=== PATIENT | female | born 1945 | race African-American/Black ===

== ENCOUNTER → 2017-07-16 | Outpatient (CLI) | payer MEDICARE ==
--- NOTE | 2017-07-16 17:41 | RADIOLOGY REPORT (SQ) ---
EXAM DESCRIPTION: CHEST PA/LATERAL COMPLETED DATE/TIME: 07/16/2017 5:27 pm REASON FOR STUDY: COUGH COMPARISON: None. EXAM PARAMETERS: NUMBER OF VIEWS: two views TECHNIQUE: Digital Frontal and Lateral radiographic views of the chest acquired. RADIATION DOSE: NA LIMITATIONS: none FINDINGS: LUNGS AND PLEURA: No opacities, masses or pneumothorax. No pleural effusion. MEDIASTINUM AND HILAR STRUCTURES: No masses or contour abnormalities. HEART AND VASCULAR STRUCTURES: Cardiomegaly. There is no failure. BONES: No acute findings. HARDWARE: Pacemaker/defibrillator. OTHER: No other significant finding. IMPRESSION: Cardiomegaly without failure. TECHNICAL DOCUMENTATION: JOB ID: [id number] [employer]- All Rights Reserved
== END ==
LOC: OD 17:02
PROVIDERS: ATTEND Physician Assistant
DX: R05 Cough (principal); I51.7 Cardiomegaly
CPT/HCPCS: 71020

== ENCOUNTER 2017-08-07 08:50 | Emergency (ER) | payer MEDICARE, MEDICAID ==
--- NOTE | 2017-08-07 09:21 | ER Document Report ---
HPI - HPI Pain Level: 1 Vertical Provider Document - INFECTION CONTROL TRAVEL OUTSIDE OF THE [place] IN LAST 30 DAYS: No - RESPIRATORY O2 Sat by Pulse Oximetry: 97 Course - Vital Signs Vital signs: Temp Pulse Resp BP Pulse Ox 97.5 F 83 16 135/86 H 97 08/07/17 09:04 08/07/17 09:04 08/07/17 09:04 08/07/17 09:04 08/07/17 09:04
--- NOTE | 2017-08-07 09:23 | ER Document Report ---
ED ENT - General Chief Complaint: Nose Bleed Stated Complaint: NOSE BLEED Time Seen by Provider: 08/07/17 09:21 Mode of Arrival: Ambulatory Information source: Patient Notes: 72-year-old female history of stroke and VT had nosebleed for 5-7 hours last night. Her INR was elevated on Thursday and she has not taken daily warfarin 2.5 mg since. No bleeding at this time. No chest pain no abdominal pain. No shortness of breath. She is here with her daughter. Because they called Dr. Livingston's office this morning and they sent her to the emergency room over the phone. TRAVEL OUTSIDE OF THE [place] IN LAST 30 DAYS: No - Related Data Allergies/Adverse Reactions: No Known Allergies Allergy (Verified 08/07/17 08:51) Past Medical History - General Information source: Patient - Social History Smoking Status: Never Smoker Frequency of alcohol use: None Drug Abuse: None Lives with: Family Family History: Reviewed & Not Pertinent - Past Medical History Cardiac Medical History: Reports: Hx Congestive Heart Failure, Hx Heart Attack Neurological Medical History: Reports: Hx Cerebrovascular Accident Review of Systems - Review of Systems Constitutional: No symptoms reported EENT: See HPI Cardiovascular: No symptoms reported Respiratory: No symptoms reported Gastrointestinal: No symptoms reported Genitourinary: No symptoms reported Female Genitourinary: No symptoms reported Musculoskeletal: No symptoms reported Skin: No symptoms reported Hematologic/Lymphatic: No symptoms reported Neurological/Psychological: No symptoms reported Physical Exam - Vital signs Vitals: Temp Pulse Resp BP Pulse Ox 97.5 F 83 16 135/86 H 97 08/07/17 09:04 08/07/17 09:04 08/07/17 09:04 08/07/17 09:04 08/07/17 09:04 Interpretation: Normal - General General appearance: Appears well, Alert In distress: None - HEENT Head: Normocephalic, Atraumatic Eyes: Normal Pupils: PERRL Nasal: Other - no bleeding source seen Pharynx: Other - no blood in posterior pharynx Neck: No: Lymphadenopathy - Respiratory Respiratory status: No respiratory distress Chest status: Nontender Breath sounds: Normal Chest palpation: Normal - Cardiovascular Rhythm: Regular Heart sounds: Normal auscultation Murmur: No - Abdominal Inspection: Normal Distension: No distension Bowel sounds: Normal Tenderness: Nontender Organomegaly: No organomegaly - Back Back: Normal, Nontender - Extremities General upper extremity: Normal inspection, Nontender, Normal color, Normal ROM , Normal temperature General lower extremity: Normal inspection, Nontender, Edema - pittng bilateral (chronic), Normal color, Normal ROM, Normal temperature, Normal weight bearing. No: Cameron's sign - Neurological Neuro grossly intact: Yes Cognition: Normal Orientation: AAOx4 [place] Coma Scale Eye Opening: Spontaneous [place] Coma Scale Verbal: Oriented Saud Coma Scale Motor: Obeys Commands Saud Coma Scale Total: 15 Speech: Normal Motor strength normal: LUE, RUE, LLE, RLE Sensory: Normal - Psychological Associated symptoms: Normal affect, Normal mood - Skin Skin Temperature: Warm Skin Moisture: Dry Skin Color: Normal Course - Re-evaluation Re-evalutation: 08/07/17 11:00 No nosebleed, INR is 4.5. 08/07/17 11:[address] Dejesus who says to hold the warfarin until Thursday she can see Dr. Livingston on Thursday which is the day he comes back. I will order an outpatient INR test to be done that morning. BUN is 24, creatinine is 1.67. I will give the lab work to the daughter so that Dr. Livingston can see it on Thursday. Her hemoglobin is 10.1, no lab results in our [facility] to compare to. platelets 183 08/07/17 11:06 - Vital Signs Vital signs: Temp Pulse Resp BP Pulse Ox 97.5 F 83 16 135/86 H 97 08/07/17 09:04 08/07/17 09:04 08/07/17 09:04 08/07/17 09:04 08/07/17 09:04 - Laboratory Result Diagrams: 08/07/17 10:15 08/07/17 10:15 Laboratory results interpreted by me: 08/07/17 08/07/17 08/07/17 10:15 10:15 10:15 Hgb 10.1 L Hct 31.6 L MCV 75 L MCH 23.8 L MCHC 31.9 L RDW 21.1 H Monocytes % 14.6 H PT 42.1 H APTT 56.7 H Carbon Dioxide 31 H BUN 24 H Creatinine 1.67 H Est GFR ( Amer) 37 L Est GFR (Non-Af Amer) 30 L Total Bilirubin 1.9 H Alkaline Phosphatase 170 H Discharge - Discharge Clinical Impression: elevated INR, resolved nosebleed, Renal insufficiency, Mild anemia Condition: Good Disposition: HOME, SELF-CARE Instructions: Nosebleed Instructions (OM) Additional Instructions: no more Warfarin until you see dr. livingston on thursday Call for appointment on Thursday with Dr. Livingston Order given for repeat INR on Thursday before you see Dr. Livingston Return to the emergency room if bleeding recurs or any concerns Forms: Follow-Up Laboratory Testing Referrals: ANDREI LIVINGSTON MD [Primary Care Provider] - 08/11/17 (call and schedule appt for thursday, get the labwork done first)
[2017-08-07 10:27] LABS: ABSOLUTE LYMPHOCYTES (AUTO) 1.3 10^3/uL (0.5-4.7); ABSOLUTE MONOCYTES (AUTO) 0.6 10^3/uL (0.1-1.4); ABSOLUTE NEUT (AUTO) 2.1 10^3/uL (1.7-8.2); BASOPHILS % (AUTO) 0.4 % (0-2); EOSINOPHILS % (AUTO) 0.4 % (0-6); HEMATOCRIT 31.6 % (36.0-47.0); HEMOGLOBIN 10.1 g/dL (12.0-15.5); HGB HCT DIFFERENCE -1.3; LYMPHOCYTES % (AUTO) 32.3 % (13-45); MEAN CORPUSCULAR HEMOGLOBIN 23.8 pg (27.0-33.4); MEAN CORPUSCULAR HGB CONC 31.9 g/dL (32.0-36.0); MEAN CORPUSCULAR VOLUME 75 fl (80-97); MONOCYTES % (AUTO) 14.6 % (3-13); RED BLOOD COUNT 4.24 10^6/uL (3.72-5.28); RED CELL DISTRIBUTION WIDTH 21.1 % (11.5-14.0); SEGMENTED NEUTROPHILS % (AUTO) 52.3 % (42-78)
[2017-08-07 10:33] LABS: PARTIAL THROMBOPLASTIN TIME 56.7 SEC (23.5-35.8); PROTHROMBIN TIME 42.1 SEC (11.4-15.4)
[2017-08-07 10:45] LABS: ALANINE AMINOTRANSFERASE 27 U/L (9-52); ALBUMIN 3.6 g/dL (3.5-5.0); ALKALINE PHOSPHATASE 170 U/L (38-126); ANION GAP 12 (5-19); ASPARTATE AMINO TRANSFERASE 25 U/L (14-36); BILIRUBIN,DIRECT 0.4 mg/dL (0.0-0.4); BILIRUBIN,TOTAL 1.9 mg/dL (0.2-1.3); BLOOD UREA NITROGEN 24 mg/dL (7-20); CALCIUM 9.3 mg/dL (8.4-10.2); CARBON DIOXIDE 31 mmol/L (22-30); CHLORIDE 98 mmol/L (98-107); CREATININE RESULT 1.67 mg/dL (0.52-1.25); GLUCOSE 78 mg/dL (75-110); POTASSIUM 3.6 mmol/L (3.6-5.0); SODIUM 141.3 mmol/L (137-145); TOTAL PROTEIN 6.6 g/dL (6.3-8.2)
[2017-08-07 11:29] VITALS: BP 136/96
== END 2017-08-07 11:29 | disposition home or self-care (01) ==
LOC: ER 08:50
DX: R04.0 Epistaxis (principal); N28.9 Disorder of kidney and ureter, unspecified; D64.9 Anemia, unspecified; I25.2 Old myocardial infarction
CPT/HCPCS: 36415; 80053; 85025; 85610; 85730; 99283

== ENCOUNTER → 2017-08-18 | Outpatient (CLI) | payer MEDICARE, MEDICAID ==
--- NOTE | 2017-08-18 16:54 | RADIOLOGY REPORT (SQ) ---
EXAM DESCRIPTION: U/S RETROPERITON (RENAL/AORTA) COMPLETED DATE/TIME: 08/18/2017 3:59 pm REASON FOR STUDY: ABNORMAL RENAL FX R94.4 ABNORMAL RESULTS OF KIDNEY FUNCTION STUDIES COMPARISON: None. TECHNIQUE: Dynamic and static grayscale images acquired of the kidneys and bladder and recorded on P ACS. Additional selected color Doppler and spectral images recorded. LIMITATIONS: None. FINDINGS: RIGHT KIDNEY: Normal size. Normal echogenicity. No solid or suspicious masses. No hydronep hrosis. No calcifications. LEFT KIDNEY: Normal size. Normal echogenicity. No solid or suspicious masses. No hydronephrosis. No calcifications. BLADDER: Poorly distended and not well visualized. No gross abnormality. OTHER FINDINGS: Gallstones. IMPRESSION: NORMAL RENAL AND BLADDER ULTRASOUND. INCIDENTAL FINDING OF GALLSTONES. TECHNICAL DOCUMENTATION: JOB ID: [id number] [employer]- All Rights Reserved
== END ==
LOC: RAD 14:39
PROVIDERS: ATTEND Physician Assistant
DX: R94.4 Abnormal results of kidney function studies (principal)
CPT/HCPCS: 76770

== ENCOUNTER → 2017-08-28 | Outpatient (CLI) | payer MEDICARE, MEDICAID ==
[2017-08-28 15:06] LABS: INTERNATIONAL RATION (INR) 1.65; PROTHROMBIN TIME 20.5 SEC (11.4-15.4)
[2017-08-28 15:07] LABS: PARTIAL THROMBOPLASTIN TIME 32.4 SEC (23.5-35.8)
== END ==
LOC: OD 13:40
PROVIDERS: ATTEND Family Medicine
DX: Z51.81 Encounter for therapeutic drug level monitoring (principal); Z79.01 Long term (current) use of anticoagulants
CPT/HCPCS: 36415; 85610; 85730

== ENCOUNTER → 2017-09-14 | Outpatient (CLI) | payer MEDICARE, MEDICAID ==
[2017-09-14 14:10] LABS: INTERNATIONAL RATION (INR) 2.63; PROTHROMBIN TIME 29.4 SEC (11.4-15.4)
[2017-09-14 14:11] LABS: PARTIAL THROMBOPLASTIN TIME 39.1 SEC (23.5-35.8)
== END ==
LOC: OD 13:03
PROVIDERS: ATTEND Family Medicine
DX: I48.2 Chronic atrial fibrillation (principal); Z79.01 Long term (current) use of anticoagulants
CPT/HCPCS: 36415; 85610; 85730

== ENCOUNTER 2017-09-19 20:40 | Emergency (ER) | payer MEDICAID, MEDICARE ==
[2017-09-19] MEDS ORDERED: OXYMETAZOLINE HCL 0.05% NASAL SPRAY 15 ML BOTTLE NASL ONE (21:16)
--- NOTE | 2017-09-19 21:29 | ER Document Report ---
ED General - General Chief Complaint: Nose Bleed Stated Complaint: NOSE BLEED Time Seen by Provider: 09/19/17 21:16 Notes: Patient is a 72-year-old female anticoagulated on warfarin who presents with left-sided nose bleeding that started approximately 30 minutes prior to arrival. It is in a slow dribbling bleed. Patient has been dabbing the blood away but has not provided direct pressure or any other intervention try to stop bleed. Family states that she is "notorious for picking her nose". The patient has not had any lightheadedness, syncope or any other symptoms since onset of the bleeding. She has not seen her primary doctor regarding today's concerns. No history of the same in the past. No trauma to the nose. She denies any difficulty breathing. TRAVEL OUTSIDE OF THE [place] IN LAST 30 DAYS: No - Related Data Allergies/Adverse Reactions: No Known Allergies Allergy (Verified 08/07/17 08:51) Past Medical History - General Information source: Patient - Social History Smoking Status: Never Smoker Frequency of alcohol use: None Drug Abuse: None Lives with: Family Family History: Reviewed & Not Pertinent Patient has suicidal ideation: No Patient has homicidal ideation: No - Past Medical History Cardiac Medical History: Reports: Hx Congestive Heart Failure, Hx Heart Attack Neurological Medical History: Reports: Hx Cerebrovascular Accident Renal/ Medical History: Denies: Hx Peritoneal Dialysis Review of Systems - Review of Systems Notes: Constitutional: Negative for fever. HENT: Positive for nosebleed Eyes: Negative for visual changes. Cardiovascular: Negative for chest pain. Respiratory: Negative for shortness of breath. Gastrointestinal: Negative for abdominal pain, vomiting or diarrhea. Genitourinary: Negative for dysuria. Musculoskeletal: Negative for back pain. Skin: Negative for rash. Neurological: Negative for headaches, weakness or numbness. 10 point ROS negative except as marked above and in HPI. Physical Exam - Vital signs Vitals: Temp Pulse BP Pulse Ox 97.4 F 79 140/105 H 100 09/19/17 20:45 09/19/17 20:45 09/19/17 20:45 09/19/17 20:45 Interpretation: Normal Notes: PHYSICAL EXAMINATION: GENERAL: Well-appearing, well-nourished and in no acute distress. HEAD: Atraumatic, normocephalic. EYES: Pupils equal round and reactive to light, extraocular movements intact, sclera anicteric, conjunctiva are normal. ENT: nares patent, small excoriation to the septum of the left nostril, oropharynx clear without exudates. Moist mucous membranes. NECK: Normal range of motion, supple without lymphadenopathy LUNGS: Breath sounds clear to auscultation bilaterally and equal. No wheezes rales or rhonchi. HEART: Regular rate and rhythm without murmurs ABDOMEN: Soft, nontender, normoactive bowel sounds. No guarding, no rebound. No masses appreciated. EXTREMITIES: Normal range of motion, no pitting or edema. No cyanosis. NEUROLOGICAL: No focal neurological deficits. Moves all extremities spontaneously and on command. PSYCH: Normal mood, normal affect. SKIN: Warm, Dry, normal turgor, no rashes or lesions noted. Course - Re-evaluation Re-evalutation: 09/19/17 21:28 Patient presents with a very small amount of scant bleeding from her left nare, excoriation has been noted on septum during examination of the nostril. Oxymetazoline was instilled into the nostril and direct pressure applied with termination of the bleeding. Patient is anticoagulated on warfarin but has not had a significant amount of blood loss, vitals within normal limits, no indication for labs. No indication for reversal of her anticoagulation given ease of determination of bleeding. At this time will discharge with return precautions and follow-up recommendations. Verbal discharge instructions given a the bedside and opportunity for questions given. Medication warnings reviewed. Patient is in agreement with this plan and has verbalized understanding of return precautions and the need for primary care follow-up in the next 24-72 hours. - Vital Signs Vital signs: Temp Pulse Resp BP Pulse Ox 97.5 F 69 17 136/82 H 95 09/19/17 23:11 09/19/17 23:11 09/19/17 23:11 09/19/17 23:11 09/19/17 23:11 Discharge - Discharge Clinical Impression: Nosebleed Condition: Good Disposition: HOME, SELF-CARE Additional Instructions: You were seen today for a nosebleed. If this restarts please apply direct pressure to the area for 15 minutes without releasing pressure. You can use 4- 5 sprays the Afrin (oxymetazoline) spray that was given to you here in the emergency room into the affected side prior to applying the pressure. You need to apply vasaline or a similar product along the inside of the side of the nose that is bleeding twice daily to help heal the inside of your nose. Please return to emergency department if these measures do not control the bleeding. Please also return if you pass out, have significant pain of the nose or face, or any other symptoms that are concerning to you. Your primary care doctor regarding today's visit.it. Referrals: ANDREI SWAIN MD [Primary Care Provider] - Follow up as needed
[2017-09-19 23:12] VITALS: BP 136/82
== END 2017-09-19 23:10 | disposition home or self-care (01) ==
LOC: ER 20:40
DX: R04.0 Epistaxis (principal); I50.9 Heart failure, unspecified; I25.2 Old myocardial infarction; Z86.73 Personal history of transient ischemic attack (TIA), and cerebral infarction without residual deficits
CPT/HCPCS: 99283; J3490

== ENCOUNTER 2017-12-15 22:13 | Inpatient (IN) | payer MEDICARE, MEDICAID ==
--- NOTE | 2017-12-15 22:43 | ER Document Report ---
ED General - General Mode of Arrival: Medic Information source: Relative TRAVEL OUTSIDE OF THE [place] IN LAST 30 DAYS: No <KENNY LOZA - Last Filed: 12/16/17 00:06> <KIM MEZA - Last Filed: 12/16/17 01:25> - General Stated Complaint: ALTERED MENTAL STATUS Time Seen by Provider: 12/15/17 22:23 Notes: Patient is a 72 year old female with a history of early onset dementia, seizures , CHF and SD presents to the emergency department via EMS accompanied by family members complaining of altered mental status with associated symptoms of nausea and vomiting onset today. Relative states prior to arrival to the emergency department the patient began to have seizure like activity and became unresponsive to auditory stimuli. She states this episode lasted approximately 5 -6 minutes. Relative mentions the patient vomiting clear fluid intermittently throughout the day. Relative states the patient recently had an upper endoscopy performed on 2017 and was found to have a small infection in her stomach and was prescribed antibiotics. She further mentions the patient was previously prescribed Keppra but was recently directed to stop taking the medication due to the patient becoming increasingly aggressive. The patient is also prescribed Coumadin and Tramadol. (KENNY LOZA) - Related Data Allergies/Adverse Reactions: No Known Allergies Allergy (Verified 08/07/17 08:51) Past Medical History - General Information source: Relative, [facility] Records - Social History Smoking Status: Never Smoker Cigarette use (# per day): No Chew tobacco use (# tins/day): No Smoking Education Provided: No Frequency of alcohol use: None Family History: Reviewed & Not Pertinent - Past Medical History Cardiac Medical History: Reports: Hx Congestive Heart Failure, Hx Heart Attack Neurological Medical History: Reports: Hx Cerebrovascular Accident <KENNY LOZA - Last Filed: 12/16/17 00:06> Review of Systems - Review of Systems Constitutional: No symptoms reported EENT: No symptoms reported Cardiovascular: No symptoms reported Respiratory: No symptoms reported Gastrointestinal: See HPI, Nausea, Vomiting Genitourinary: No symptoms reported Female Genitourinary: No symptoms reported Musculoskeletal: No symptoms reported Skin: No symptoms reported Hematologic/Lymphatic: No symptoms reported Neurological/Psychological: See HPI, Seizure -: Yes All other systems reviewed and negative <KENNY LOZA - Last Filed: 12/16/17 00:06> Physical Exam <KENNY LOZA - Last Filed: 12/16/17 00:06> - Vital signs Interpretation: Normal. No: Febrile - General General appearance: Alert In distress: None - Respiratory Respiratory status: No respiratory distress Breath sounds: Normal - Cardiovascular Rhythm: Regular - Abdominal Inspection: Normal Tenderness: Nontender - Extremities General upper extremity: Normal inspection, Normal ROM General lower extremity: Normal inspection, Normal ROM - Neurological Neuro grossly intact: Yes Cognition: Confused - at baseline per family [place] Coma Scale Eye Opening: Spontaneous Saud Coma Scale Verbal: Confused [place] Coma Scale Motor: Obeys Commands Saud Coma Scale Total: 14 Speech: Normal Cranial nerves: Normal Motor strength normal: LUE, RUE, LLE, RLE - Psychological Associated symptoms: Normal affect, Normal mood - Skin Skin Temperature: Warm Skin Moisture: Dry Skin Color: Normal <KIM MEZA - Last Filed: 12/16/17 01:25> - Notes Notes: GENERAL: Alert, interacts well. No acute distress. HEAD: Normocephalic, atraumatic. EYES: Pupils equal, round, and reactive to light. Extraocular movements intact. ENT: Oral mucosa moist, tongue midline. NECK: Full range of motion. Supple. Trachea midline. LUNGS: Clear to auscultation bilaterally, no wheezes, rales, or rhonchi. No respiratory distress. HEART: Regular rate and rhythm. No murmurs, gallops, or rubs. EXTREMITIES: Moves all 4 extremities spontaneously. NEUROLOGICAL: Alert and oriented x3. Normal speech. PSYCH: Normal affect, normal mood. SKIN: Warm, dry, normal turgor. No rashes or lesions noted. (KENNY LOZA) Course - Laboratory Result Diagrams: 12/15/17 22:30 12/15/17 22:30 <KENNY LOZA - Last Filed: 12/16/17 00:06> - Laboratory Result Diagrams: 12/15/17 22:30 12/15/17 22:30 - Diagnostic Test Radiology reviewed: Reports reviewed <KIM MEZA - Last Filed: 12/16/17 01:25> - Re-evaluation Re-evalutation: 12/15/17 23:30 No acute distress. No further seizure activity observed. 12/16/17 00:45 Patient is a 72-year-old female who is brought in by her family for seizure activity at home. The patient has a history of seizure activity and has not been taking Keppra due to an elevated INR a few months ago. Patient is taking tramadol which is recommended that she do not take that in the future. Patient has had vomiting this evening which was nonbilious and not coffee ground. Her hemoglobin is stable. However, her BUN and creatinine are elevated consistent with acute on chronic renal insufficiency. Her sodium is also low which could predispose her to having a seizure this evening. Chest x-ray is concerning for possible opacity versus atelectasis although the patient is afebrile with clear breath sounds. Will hold off on antibiotics at this time. No evidence for UTI. CT of head with no acute findings. Patient was discussed with Dr. Moncada. Patient will be admitted to the [facility] under his care. Family is agreeable to this plan. Stable time of admission. (KIM MEZA) - Laboratory Laboratory results interpreted by me: 12/15/17 12/15/17 12/15/17 22:30 22:30 22:30 Hgb 10.2 L Hct 31.9 L MCV 73 L MCH 23.5 L RDW 23.7 H PT 19.0 H VBG HCO3 Sodium 135.9 L Chloride 87 L Carbon Dioxide 36 H BUN 103 H Creatinine 3.38 H Est GFR ( Amer) 16 L Est GFR (Non-Af Amer) 13 L Glucose 125 H POC Glucose Direct Bilirubin 0.6 H AST 46 H Alkaline Phosphatase 156 H 12/15/17 12/15/17 22:30 23:00 Hgb Hct MCV MCH RDW PT VBG HCO3 32.7 H Sodium Chloride Carbon Dioxide BUN Creatinine Est GFR ( Amer) Est GFR (Non-Af Amer) Glucose POC Glucose 124 H Direct Bilirubin AST Alkaline Phosphatase Critical Care Note - Critical Care Note Total time excluding time spent on procedures (mins): 35 - Evaluation altered mental status, diagnosis of acute on chronic renal insufficiency, initiation of Keppra, counseling of patient and family, coordination of admission, multiple re -evaluations <KIM MEZA - Last Filed: 12/16/17 01:25> Discharge <KENNY LOZA - Last Filed: 12/16/17 00:06> - Discharge Admitting Provider: [facility] Unit Admitted: [facility] <KIM MEZA - Last Filed: 12/16/17 01:25> - Discharge Clinical Impression: Seizure Vomiting Qualifiers: Vomiting type: unspecified Vomiting Intractability: non-intractable Nausea presence: with nausea Qualified Code(s): R11.2 - Nausea with vomiting, unspecified Renal failure (ARF), acute on chronic Qualifiers: Acute renal failure type: unspecified Disposition: ADMITTED INPATIENT Scribe Attestation: 12/16/17 01:25 I personally performed the services described in the documentation, reviewed and edited the documentation which was dictated to the scribe in my presence, and it accurately records my words and actions. (KIM MEZA) Scribe Documentation - Scribe Written by Scribe:: Iris Sarkar, 12/15/2017 23:00 acting as scribe for :: Salas <KENNY LOZA - Last Filed: 12/16/17 00:06>
[2017-12-15 22:52] LABS: VENOUS BLOOD BASE EXCESS 6.8 mmol/L; VENOUS BLOOD HCO3 32.7 mmol/L (20-32); VENOUS BLOOD PCO2 53.1 mmHg (35-63); VENOUS BLOOD PH 7.41 (7.30-7.42)
[2017-12-15 22:54] LABS: ABSOLUTE EOSINOPHILS # (AUTO) 0.2 10^3/uL (0.0-0.6); ABSOLUTE LYMPHOCYTES (AUTO) 1.4 10^3/uL (0.5-4.7); ABSOLUTE MONOCYTES (AUTO) 0.5 10^3/uL (0.1-1.4); ABSOLUTE NEUT (AUTO) 3.4 10^3/uL (1.7-8.2); BASOPHILS % (AUTO) 0.8 % (0-2); EOSINOPHILS % (AUTO) 3.4 % (0-6); HEMATOCRIT 31.9 % (36.0-47.0); HEMOGLOBIN 10.2 g/dL (12.0-15.5); LYMPHOCYTES % (AUTO) 25.7 % (13-45); MEAN CORPUSCULAR HEMOGLOBIN 23.5 pg (27.0-33.4); MEAN CORPUSCULAR HGB CONC 32.1 g/dL (32.0-36.0); MEAN CORPUSCULAR VOLUME 73 fl (80-97); PLATELET COUNT 295 10^3/uL (150-450); RED BLOOD COUNT 4.35 10^6/uL (3.72-5.28); RED CELL DISTRIBUTION WIDTH 23.7 % (11.5-14.0); SEGMENTED NEUTROPHILS % (AUTO) 61.1 % (42-78); TOTAL CELLS COUNTED % (AUTO) 100 %; WHITE BLOOD COUNT 5.5 10^3/uL (4.0-10.5)
[2017-12-15 22:57] LABS: INTERNATIONAL RATION (INR) 1.51
--- NOTE | 2017-12-15 23:06 | RADIOLOGY REPORT (SQ) ---
EXAM DESCRIPTION: CHEST SINGLE VIEW COMPLETED DATE/TIME: 12/15/2017 10:49 pm REASON FOR STUDY: AMS COMPARISON: None. EXAM PARAMETERS: NUMBER OF VIEWS: One view. TECHNIQUE: Single frontal radiographic view of the chest acquired. RADIATION DOSE: NA LIMITATIONS: None. FINDINGS: LUNGS AND PLEURA: Patchy airspace opacities in the left lung base, possible small effusion . Right lung appears clear. No pneumothorax. MEDIASTINUM AND HILAR STRUCTURES: Stable. HEART AND VASCULAR STRUCTURES: Stable. BONES: No acute findings. HARDWARE: Cardiac defibrillator. OTHER: No other significant finding. IMPRESSION: Patchy airspace opacities in the left lung base, possible small effusion. TECHNICAL DOCUMENTATION: JOB ID: [id number] 2010 [employer]- All Rights Reserved Reading location - IP/workstation name: [employer]
[2017-12-15 23:11] LABS: ALANINE AMINOTRANSFERASE 40 U/L (9-52); ALBUMIN 3.9 g/dL (3.5-5.0); ALKALINE PHOSPHATASE 156 U/L (38-126); ANION GAP 13 (5-19); ASPARTATE AMINO TRANSFERASE 46 U/L (14-36); BILIRUBIN,DIRECT 0.6 mg/dL (0.0-0.4); BILIRUBIN,TOTAL 0.6 mg/dL (0.2-1.3); BLOOD UREA NITROGEN 103 mg/dL (7-20); CALCIUM 10.1 mg/dL (8.4-10.2); CARBON DIOXIDE 36 mmol/L (22-30); CHLORIDE 87 mmol/L (98-107); GLUCOSE 125 mg/dL (75-110); POTASSIUM 3.9 mmol/L (3.6-5.0); SODIUM 135.9 mmol/L (137-145); TOTAL PROTEIN 7.5 g/dL (6.3-8.2)
[2017-12-15] MEDS ORDERED: NORMAL SALINE 1000 ML 1,000 ML IV ONE (23:31)
[2017-12-15] MEDS ORDERED: LEVETIRACETAM 1000 MG/NACL-ISO 1,000 MG/100 ML RTUPB IV ONE (23:57)
--- NOTE | 2017-12-16 00:43 | RADIOLOGY REPORT (SQ) ---
EXAM DESCRIPTION: CT HEAD WITHOUT CLINICAL HISTORY: AMS, on warfarin COMPARISON: None available TECHNIQUE: Axial CT of the head obtained from the skull apex to the skull base without contrast. FINDINGS: No acute intracranial hemorrhage identified. No mass, mass effect, shift of the midline, abnormal extra-axial fluid collection or CT evidence of acute ischemic change identified. The ventricular system and sulcal spaces are mildly enlarged compatible with mild cerebral atrophy. Encephalomalacia involving the left temporal lobe may be related to previous MCA distribution infarction. Scattered areas of hypodensity throughout the supratentorial white matter are nonspecific and may be related to chronic small vessel ischemic change. The visualized paranasal sinuses and the mastoids are clear. No skull fracture identified. Visualized orbits and globes are unremarkable. Atherosclerotic calcification of the intracranial internal carotid arteries. DLP: 990.56 mGy-cm IMPRESSION: 1. No acute intracranial abnormality by CT criteria. This exam was performed according to our departmental dose-optimization program, which includes automated exposure control, adjustment of the mA and/or kV according to patient size and/or use of iterative reconstruction technique.
[2017-12-16 00:53] LABS: APPEARANCE,URINE CLEAR; BILIRUBIN,URINE NEGATIVE (NEGATIVE); COLOR,URINE YELLOW; GLUCOSE, URINE NEGATIVE (NEGATIVE); KETONES,URINE NEGATIVE (NEGATIVE); LEUKOCYTE ESTERASE,URINE NEGATIVE (NEGATIVE); NITRITE,URINE NEGATIVE (NEGATIVE); PROTEIN,URINE NEGATIVE (NEGATIVE); URINE SPECIFIC GRAVITY 1.008; UROBILINOGEN,URINE NEGATIVE mg/dL (<2.0)
[2017-12-16] MEDS ORDERED: NORMAL SALINE 1000 ML 1,000 ML IV PRN (05:19)
[2017-12-16] MEDS ORDERED: MAG HYDROX/AL HYDROX/SIMETH SUSP 30 ML UDCUP PO PRN (06:27)
[2017-12-16 07:42] LABS: CREATINE KINASE MB 0.78 ng/mL (<4.55); TROPONIN I 0.053 ng/mL
--- NOTE | 2017-12-16 09:13 | EKG REPORT ---
SEVERITY:- ABNORMAL ECG - SINUS RHYTHM NONSPECIFIC IVCD WITH LAD INFERIOR INFARCT, AGE INDETERMINATE CONSIDER ANTEROSEPTAL INFARCT : Confirmed by: Edis Moody 16-Dec-2017 09:12:48
[2017-12-16] MEDS: LEVETIRACETAM 500 MG/NACL-ISO 500 MG/100 ML RTUPB IV SCH ×2 (09:49→21:02)
[2017-12-16 11:35] LABS: ALANINE AMINOTRANSFERASE 34 U/L (9-52); ALBUMIN 3.5 g/dL (3.5-5.0); ALKALINE PHOSPHATASE 137 U/L (38-126); ANION GAP 14 (5-19); ASPARTATE AMINO TRANSFERASE 36 U/L (14-36); BILIRUBIN,DIRECT 0.4 mg/dL (0.0-0.4); BILIRUBIN,TOTAL 0.5 mg/dL (0.2-1.3); BLOOD UREA NITROGEN 98 mg/dL (7-20); CALCIUM 9.8 mg/dL (8.4-10.2); CARBON DIOXIDE 35 mmol/L (22-30); CHLORIDE 88 mmol/L (98-107); GLUCOSE 119 mg/dL (75-110); POTASSIUM 3.5 mmol/L (3.6-5.0); SODIUM 136.7 mmol/L (137-145); TOTAL PROTEIN 6.8 g/dL (6.3-8.2)
--- NOTE | 2017-12-16 11:49 | PDOC H&P ---
History of Present Illness Admission Date/PCP: 12/16/17 00:39 ANDREI SWAIN MD Patient complains of: Altered mental status and his seizure History of Present Illness: NAYELI MCKEON is a 72 year old female This is a 72-year-old female with a significant history of the epilepsy currently see a Dr. pham the neurologist and currently taking the Keppra to 50 mg p.o. twice a day but patients stop it because of the more agitations with the medicationsAlso history of for chronic systolic heart failure and coronary artery disease currently [place] [facility] Patients have a chronic systolic heart failure and ICD placementAnd the patient also have a chronic A. fib and currently on chronic CoumadinAnd a chronic kidney disease and currently see a Dr. 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 but did not follow regularly for the Coumadin check Patient's brought to the emergency department yesterday because of the patient have seizures episode and altered mental status in the emergency department initial workup including the CT head was negative other blood work stable except the patient's kidney function is more worsening Patient's last creatinine in my office was 1.6 patient is currently taking the torsemide 20 mg 4 tablets daily Patients when I saw her in the floor alert awake denied any chest pain denied any shortness of the breath but patient has significant underlying dementia Past Medical History Cardiac Medical History: Reports: Atrial Fibrillation, Congestive Heart Failure , Coronary Artery Disease, Myocardial Infarction, Hyperlipidema, Hypertension Neurological Medical History: Reports: Ischemic CVA Renal/ Medical History: Reports: Chronic Kidney Disease GI Medical History: Reports: Gastroesophageal Reflux Disease Psychiatric Medical History: Reports: Dementia, Depression Past Surgical History Past Surgical History: Reports: Cardiac Catheterization Social History Smoking Status: Former Smoker Frequency of Alcohol Use: None - Advance Directive Resuscitation Status: Full Code Family History Family History: Reviewed & Not Pertinent Parental Family History Reviewed: Yes Children Family History Reviewed: Yes Sibling(s) Family History Reviewed.: Yes Medication/Allergy Allergies/Adverse Reactions: No Known Allergies Allergy (Verified 08/07/17 08:51) Review of Systems ROS unobtainable: Due to mental status All systems: as per PMH Physical Exam Vital Signs: Temp Pulse Resp BP Pulse Ox 98.0 F 70 20 122/69 100 12/16/17 05:50 12/16/17 05:58 12/16/17 05:50 12/16/17 05:50 12/16/17 05:50 Intake & Output 12/15/17 12/16/17 12/17/17 06:59 06:59 06:59 Intake Total 1100 Output Total 200 Balance 900 Weight 69.3 kg General appearance: PRESENT: no acute distress, well-developed, well-nourished Head exam: PRESENT: atraumatic, normocephalic Eye exam: PRESENT: conjunctiva pink, EOMI, PERRLA. ABSENT: scleral icterus Ear exam: PRESENT: normal external ear exam Mouth exam: PRESENT: moist, tongue midline Neck exam: PRESENT: full ROM. ABSENT: carotid bruit, JVD, lymphadenopathy, thyromegaly Respiratory exam: PRESENT: clear to auscultation meghna Cardiovascular exam: PRESENT: RRR. ABSENT: diastolic murmur, rubs, systolic murmur Pulses: PRESENT: normal dorsalis pedis pul, +2 pedal pulses bilateral Vascular exam: PRESENT: normal capillary refill GI/Abdominal exam: PRESENT: normal bowel sounds, soft. ABSENT: distended, guarding, mass, organolmegaly, rebound, tenderness Rectal exam: PRESENT: deferred Extremities exam: ABSENT: pedal edema Neurological exam: PRESENT: alert, awake, oriented to person, oriented to place , oriented to time, oriented to situation, CN II-XII grossly intact. ABSENT: motor sensory deficit Psychiatric exam: PRESENT: appropriate affect, normal mood. ABSENT: homicidal ideation, suicidal ideation Skin exam: PRESENT: dry, intact, warm. ABSENT: cyanosis, rash Results Laboratory Results: 12/16/17 10:38 Ammonia < 8.7 L 12/16/17 12/16/17 07:03 07:03 Creatine Kinase 48 CK-MB (CK-2) 0.78 Troponin I 0.053 Impressions: Chest X-Ray 12/15/17 22:24 IMPRESSION: Patchy airspace opacities in the left lung base, possible small effusion. Head CT 12/15/17 22:24 IMPRESSION: 1. No acute intracranial abnormality by CT criteria. This exam was performed according to our departmental dose-optimization program, which includes automated exposure control, adjustment of the mA and/or kV according to patient size and/or use of iterative reconstruction technique. Assessment & Plan - Diagnosis (1) Renal failure (ARF), acute on chronic Qualifiers: Acute renal failure type: unspecified Chronic kidney disease stage: stage 3 (moderate) Qualified Code(s): N17.9 - Acute kidney failure, unspecified; N18.3 - Chronic kidney disease, stage 3 (moderate); N18.3 - Chronic kidney disease, stage 3 (moderate) Is this a current diagnosis for this admission?: Yes Plan: We will currently hold the torsemide continues to IV fluid and repeat the blood work again and consult the nephrology (2) Seizure Is this a current diagnosis for this admission?: Yes Plan: As per the review the neurology not patient was in the Keppra to 50 mg p.o. twice a day but patient stop by herself will restart the Keppra and order another EEG (3) Hypertension Qualifiers: Hypertension type: essential hypertension Qualified Code(s): I10 - Essential (primary) hypertension Is this a current diagnosis for this admission?: Yes Plan: Currently stable (4) Congestive heart failure Qualifiers: Heart failure type: systolic Heart failure chronicity: chronic Qualified Code(s): I50.22 - Chronic systolic (congestive) heart failure Is this a current diagnosis for this admission?: Yes Plan: Patient is currently not in acute failure will continues to monitor and currently hold her diuretics due to the worsening the kidney functions (5) Coronary artery disease Qualifiers: Coronary Disease-Associated Artery/Lesion type: unspecified vessel or lesion type Is this a current diagnosis for this admission?: Yes Plan: We consult the cardiology and repeat the cardiac enzyme (6) Dementia Qualifiers: Dementia type: unspecified type Dementia behavioral disturbance: with behavioral disturbance Qualified Code(s): F03.91 - Unspecified dementia with behavioral disturbance Is this a current diagnosis for this admission?: Yes Plan: Patient's currently also see a neurology (7) History of implantable cardioverter-defibrillator (ICD) placement Is this a current diagnosis for this admission?: Yes (8) Vomiting Qualifiers: Vomiting type: unspecified Vomiting Intractability: non-intractable Nausea presence: with nausea Qualified Code(s): R11.2 - Nausea with vomiting, unspecified Is this a current diagnosis for this admission?: Yes Plan: Is currently seen by Dr. Nielsen and an endoscopy done will get the report continues to PPI (9) Chronic a-fib Is this a current diagnosis for this admission?: Yes Plan: Currently in a chronic Coumadin INR is 1.5 (10) Noncompliance Is this a current diagnosis for this admission?: Yes Plan: And is very noncompliance for the follow-up in a checking the blood - Time Time Spent: 30 to 50 Minutes Medications reviewed and adjusted accordingly: Yes Anticipated discharge: Other Within: Other - Inpatient Certification Medical Necessity: Need Close Monitoring Due to Risk of Patient Decompensation, Need For IV Fluids Post Hospital Care: D/C [employer] Stabilizer Documentation - Plan Summary Plan Summary: see md order no family member seen will contact family
[2017-12-16] MEDS ORDERED: IPRATROPIUM/ALBUTEROL 0.5-2.5 MG/3 ML AMPUL NEB PRN (13:03)
[2017-12-16 13:56] LABS: CREATINE KINASE MB 0.69 ng/mL (<4.55); TROPONIN I 0.046 ng/mL
--- NOTE | 2017-12-16 14:12 | RADIOLOGY REPORT (SQ) ---
EXAM DESCRIPTION: CT ABD/PELVIS NO ORAL OR IV COMPLETED DATE/TIME: 12/16/2017 1:25 pm REASON FOR STUDY: arf COMPARISON: None. TECHNIQUE: CT scan of the abdomen and pelvis performed without intravenous or oral contrast. Images reviewed with lung, soft tissue, and bone windows. Reconstructed coronal and sagittal MPR images revi ewed. All images stored on PACS. All CT scanners at this facility use dose modulation, iterative reconstruction, and/or weight based d osing when appropriate to reduce radiation dose to as low as reasonably achievable (ALARA). [facility]: Dose Right [facility]: CareDose [facility]: Dose Right [facility]: Teradose 4D [facility]: Smart Technologies RADIATION DOSE: CT Rad equipment meets quality standard of care and radiation dose reduction techniq ues were employed. CTDIvol: 13.3 mGy. DLP: 689 mGy-cm.mGy. LIMITATIONS: None. FINDINGS: LOWER CHEST: Cardiomegaly and motion artifact. NON-CONTRASTED LIVER, SPLEEN, ADRENALS: Limiting external artifacts. Liver and spleen grossly normal . No evidence of significant adrenal mass. PANCREAS: No masses. No peripancreatic inflammatory changes. GALLBLADDER: Cholelithiasis. RIGHT KIDNEY AND URETER: No solid masses. No significant calcification. No hydronephrosis or hydroure ter. LEFT KIDNEY AND URETER: No solid masses. No significant calcification. No hydronephrosis or hydrouret er. AORTA AND RETROPERITONEUM: Dense aortic calcification without aneurysm. No retroperitoneal mass or h ematoma. BOWEL AND PERITONEAL CAVITY: Diverticulosis in the sigmoid and distal descending colon. No active in flammatory changes fair amount of debris distends the stomach. No outlet obstruction. No dilated sm all bowel loops. No active bowel related inflammatory changes. No ascites or abnormal gas. APPENDIX: Not visualized. PELVIS, BLADDER, AND ABDOMINAL WALL:No abnormal masses. No free fluid. Bladder normal. BONES: Spondylosis. Degenerative right hip changes. OTHER: No other significant finding. IMPRESSION: 1. No acute or suspicious abdominopelvic abnormality. 2. Cardiomegaly, cholelithiasis, diverticulosis. TECHNICAL DOCUMENTATION: JOB ID: [id number] Quality ID # [id number]: Final reports with documentation of one or more dose reduction techniques (e.g., Au tomated exposure control, adjustment of the mA and/or kV according to patient size, use of iterative reconstruction technique) 2010 [employer]- All Rights Reserved Reading location - IP/workstation name: [email or web address]
[2017-12-16] MEDS: WARFARIN SODIUM 3 MG TABLET PO SCH (17:35)
[2017-12-16] MEDS: LANSOPRAZOLE 15 MG TAB.RAP.DR PO SCH (17:36)
[2017-12-16] MEDS ORDERED: (PENDING PHARMACY ID) (Warfarin Sodium 3 MG) PO SCH (18:00)
[2017-12-16 19:11] LABS: CREATINE KINASE MB 0.69 ng/mL (<4.55); TROPONIN I 0.045 ng/mL
--- NOTE | 2017-12-16 19:30 | RADIOLOGY REPORT (SQ) ---
EXAM DESCRIPTION: U/S RETROPERITON LTD COMPLETED DATE/TIME: 12/16/2017 6:31 pm REASON FOR STUDY: BLAYNE COMPARISON: 08/18/2017 TECHNIQUE: Dynamic and static grayscale images acquired of the kidneys and bladder and recorded on P ACS. Additional selected color Doppler and spectral images recorded. LIMITATIONS: None. FINDINGS: RIGHT KIDNEY: 7 cm. Normal echogenicity. No solid or suspicious masses. No hydronep hrosis. No calcifications. LEFT KIDNEY: 8.2 cm. Normal echogenicity. No solid or suspicious masses. No hydronephrosis. No calcifications. BLADDER: Bladder was empty cannot be evaluated. OTHER FINDINGS: No other significant finding. IMPRESSION: The kidneys are small but otherwise normal. The bladder was not able be evaluated. TECHNICAL DOCUMENTATION: JOB ID: [id number] 1935 [employer]- All Rights Reserved Reading location - IP/workstation name: [email or web address]
--- NOTE | 2017-12-16 19:38 | PDOC CONSULTATION ---
Consultation Consult Date: 12/16/17 Attending physician:: ANDREI SWAIN Consult reason:: Worsening renal function and cardiomyopathy History of Present Illness Admission Date/PCP: 12/16/17 00:39 ANDREI SWAIN MD Patient complains of: Fatigue and tiredness History of Present Illness: NAYELI MCKEON is a 72 year old female Patient's brought to the emergency department yesterday because of the patient have seizures episode and altered mental status. In the emergency department initial workup including the CT head was negative other blood work stable except the patient's kidney function is more worsening Patient's last creatinine in my office was 1.6 patient is currently taking the torsemide 20 mg 4 tablets daily Patients when I saw her in the floor alert awake denied any chest pain denied any shortness of the breath but patient has significant underlying dementia. I was asked to evaluate patient because of underlying significant cardiac issues which includes history of systolic dysfunction, CHF and now acute on chronic renal failure. On questioning patient looked comfortable and denied any chest pain or shortness of breath. Please note that patient has advanced dementia. Past Medical History Cardiac Medical History: Reports: Atrial Fibrillation, Congestive Heart Failure , Coronary Artery Disease, Myocardial Infarction, Hyperlipidema, Hypertension Neurological Medical History: Reports: Ischemic CVA Renal/ Medical History: Reports: Chronic Kidney Disease GI Medical History: Reports: Gastroesophageal Reflux Disease Psychiatric Medical History: Reports: Dementia, Depression Past Surgical History Past Surgical History: Reports: Cardiac Catheterization Social History Smoking Status: Former Smoker Frequency of Alcohol Use: None - Advance Directive Resuscitation Status: Full Code Family History Family History: Hypertension Parental Family History Reviewed: Yes Children Family History Reviewed: Yes Sibling(s) Family History Reviewed.: Yes Medication/Allergy Home Medications: Albuterol Sulfate [Proair HFA] 1 puff IH Q4HP PRN 12/16/17 Amoxicillin Trihydrate [Amoxil 500 mg Capsule] 1,000 mg PO BID 12/16/17 Aspirin [Ecotrin 81 mg EC Tablet] 81 mg PO DAILY 12/16/17 Bismuth Subsalicylate [Pepto-Bismol 262 mg Chewable Tablet] 524 mg PO QID Carvedilol [Coreg 6.25 mg Tablet] 6.25 mg PO Q12 12/16/17 Cholecalciferol (Vitamin D3) [Vitamin D3] 1,000 unit PO DAILY 12/16/17 Fluticasone/Vilanterol [Breo Ellipta 100-25 Mcg INH] 1 each IH DAILY 12/16/17 Ipratropium/Albuterol Sulfate [Combivent Respimat Inhal [place]] 1 puff PO QID 10/04 Lisinopril [Prinivil 5 mg Tablet] 5 mg PO DAILY 12/16/17 Metolazone [Zaroxolyn 2.5 Mg Tablet] 2.5 mg PO DAILY 12/16/17 Metronidazole [Flagyl 500 mg Tablet] 500 mg PO Q8 12/16/17 Omeprazole 20 mg PO BID 12/16/17 Torsemide [Demadex 20 mg Tablet] 80 mg PO DAILY 12/16/17 Tramadol HCl [Ultram 50 mg Tablet] 50 mg PO HSP PRN 12/16/17 Trazodone HCl [Desyrel 50 mg Tablet] 50 mg PO QHS 12/16/17 Warfarin Sodium [Coumadin 3 mg Tablet] 3 mg PO QPM 12/16/17 Allergies/Adverse Reactions: No Known Allergies Allergy (Verified 08/07/17 08:51) Physical Exam Vital Signs: Temp Pulse Resp BP Pulse Ox 97.9 F 76 18 122/59 L 100 12/16/17 16:03 12/16/17 16:03 12/16/17 16:03 12/16/17 16:03 12/16/17 16:03 Intake & Output 12/15/17 12/16/17 12/17/17 06:59 06:59 06:59 Intake Total 1100 850 Output Total 200 800 Balance 900 50 Weight 69.3 kg Exam: GENERAL: well-nourished and in no acute distress. Alert and oriented x3 HEAD: Atraumatic, normocephalic. EYES: Pupils equal round and reactive to light, extraocular movements intact, sclera anicteric, conjunctiva are normal. ENT: TMs normal, nares patent, oropharynx clear without exudates. Moist mucous membranes. No oral ulcerations or bleeding gums noted NECK: supple without lymphadenopathy. Trachea is central. No cervical or axillary lymphadenopathy noted. Carotids are 2+, JVD WNL LUNGS: Respiration seems nonlabored, no significant accessory muscle action noted. Breath sounds clear to auscultation bilaterally and equal noted. No wheezes rales or rhonchi noted. No significant dullness noted on percussion. CHEST: Palpation of the chest wall shows no significant chest wall tenderness. Defibrillator noted left-sided chest. 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 ABDOMEN: Soft, no significant tenderness appreciated, normoactive bowel sounds. No guarding, no rebound. No rigidity noted . No masses appreciated. EXTREMITIES: Pedal pulses are 1-2+, no calf tenderness noted. No clubbing or cyanosis. negative pedal edema noted NEUROLOGICAL: Focused neurological exam showed no significant neurologic deficit. Normal speech, no focal weakness appreciated. PSYCH: Normal mood, normal affect. Judgment and insight within normal limits. SKIN: No significant ecchymosis, skin is noted to be warm. MUSCULOSKELETAL EXAM: No significant acute joint swelling noted. Results Laboratory Results: 12/16/17 10:38 12/16/17 12/16/17 10:38 10:38 Sodium 136.7 L Potassium 3.5 L Chloride 88 L Carbon Dioxide 35 H Anion Gap 14 BUN 98 H Creatinine 3.18 H Est GFR ( Amer) 17 L Est GFR (Non-Af Amer) 14 L Glucose 119 H Calcium 9.8 Total Bilirubin 0.5 AST 36 ALT 34 Alkaline Phosphatase 137 H Ammonia < 8.7 L Total Protein 6.8 Albumin 3.5 12/16/17 12/16/17 12/16/17 07:03 07:03 12:44 Creatine Kinase 48 46 CK-MB (CK-2) 0.78 Troponin I 0.053 12/16/17 12/16/17 12/16/17 12:44 18:30 18:30 Creatine Kinase 48 CK-MB (CK-2) 0.69 0.69 Troponin I 0.046 0.045 EKG Comments: EKG shows sinus rhythm with left bundle branch block pattern. Impressions: Chest X-Ray 12/15/17 22:24 IMPRESSION: Patchy airspace opacities in the left lung base, possible small effusion. Head CT 12/15/17 22:24 IMPRESSION: 1. No acute intracranial abnormality by CT criteria. This exam was performed according to our departmental dose-optimization program, which includes automated exposure control, adjustment of the mA and/or kV according to patient size and/or use of iterative reconstruction technique. Abdomen/Pelvis CT 12/16/17 00:00 IMPRESSION: 1. No acute or suspicious abdominopelvic abnormality. 2. Cardiomegaly, cholelithiasis, diverticulosis. Renal Ultrasound 12/16/17 00:00 IMPRESSION: The kidneys are small but otherwise normal. The bladder was not able be evaluated. Assessment & Plan - Diagnosis (1) Renal failure (ARF), acute on chronic Qualifiers: Acute renal failure type: unspecified Chronic kidney disease stage: stage 3 (moderate) Qualified Code(s): N17.9 - Acute kidney failure, unspecified; N18.3 - Chronic kidney disease, stage 3 (moderate); N18.3 - Chronic kidney disease, stage 3 (moderate) Is this a current diagnosis for this admission?: Yes (2) Congestive heart failure Qualifiers: Heart failure type: systolic Heart failure chronicity: chronic Qualified Code(s): I50.22 - Chronic systolic (congestive) heart failure Is this a current diagnosis for this admission?: Yes (3) Coronary artery disease Qualifiers: Coronary Disease-Associated Artery/Lesion type: unspecified vessel or lesion type Is this a current diagnosis for this admission?: Yes (4) History of implantable cardioverter-defibrillator (ICD) placement Is this a current diagnosis for this admission?: Yes (5) Hypertension Qualifiers: Hypertension type: essential hypertension Qualified Code(s): I10 - Essential (primary) hypertension Is this a current diagnosis for this admission?: Yes (6) Paroxysmal atrial fibrillation Is this a current diagnosis for this admission?: Yes - Notes Notes: Chest x-ray shows significant cardiomegaly, cannot rule out left pleural effusion. ICD noted. At this point clinically patient seems relatively well compensated without any evidence of fluid overload. Recommend holding diuretic therapy until we have obvious signs of fluid overload and then restarting it may be at half her regular dose. In the meantime will try obtain previous evaluations. Follow renal functions, follow BNP. Overall prognosis will be guarded in view of severe systolic dysfunction and cardiomyopathy. Acute on chronic renal failure: Exact etiology not clear but basically patient seems dehydrated and volume contracted. Agree with holding diuretics. If renal functions do not improve then it could be related to poor cardiac output. In that case we will consider repeating a 2D echocardiogram. Congestive heart failure: Currently seems compensated. Monitor weight, fluid intake output. Continue with salt and fluid restriction. Coronary artery disease: Patient is symptomatically stable without any angina or angina equivalent symptoms. History of implantable cardioverter defibrillator: Currently stable. No recent defibrillator discharges noted by the family or patient. Hypertension: Blood pressure currently on the low side. Agree with holding antihypertensive at this point. May consider restarting beta-adri at a lower dose. Paroxysmal atrial fibrillation: Patient noted to be in sinus rhythm on EKGs. Continue to monitor patient heart rhythm. - Time Time Spent: 30 to 50 Minutes - CODE STATUS was discussed, patient remains full code. Surrogate decision-maker patient's . Multiple medical problems were addressed. More than 50% of the time spent coordinating care, discussing management plans with involved caregivers. Management plans discussed with involved personnels. Medical decision making was of moderate to high complexity , patient's has multiple comorbidities. Medications reviewed and adjusted accordingly: Yes
--- NOTE | 2017-12-16 19:55 | PDOC CONSULTATION ---
Consultation Consult Date: 12/16/17 Consult reason:: BLAYNE History of Present Illness Admission Date/PCP: 12/16/17 00:39 ANDREI LIVINGSTON MD History of Present Illness: NAYELI MCKEON is a 72 year old female with a significant history of the epilepsy currently sees Dr. pham, neurologist and currently taking the Keppra to 50 mg p.o. twice a day but patients stop it because of the more agitations with the medication. Also history of for chronic systolic heart failure with ICD placement, chronic A. fib on coumadin and coronary artery disease currently seen by [place] [facility]. Has chronic kidney disease and is scheduled to see Dr. Wagner in a couple weeks. According to Dr. Livingston her last creatinine was 1.6 and she is on torsemide 20mg 4 tablets daily. The patient has a significant history of noncompliance with underlying dementia and family is not compliant with her treatment either. Patient was brought to the emergency department yesterday because of the patient had episode of seizure and altered mental status. In the emergency department initial workup included a CT of her head was negative. Creatinine was found to be in the 3s with a BUN in the 100s. On examintation in her room of floor 3. She had just recently had EEG done and was on NS. At the time she was confused and was not able to help with retrieving history. Her family was also not around so history was not able to be obtained from them. History was retrieved from other health care providers notes and from the nurse in charge of her care. She denied chest pain, SOB, n/v/d/c, fevers, chills. She did say that her legs were sore all over. Past Medical History Cardiac Medical History: Reports: Atrial Fibrillation, Coronary Artery Disease, Hyperlipidemia, Myocardial Infarction Neurological Medical History: Reports: Ischemic CVA GI Medical History: Reports: Gastroesophageal Reflux Disease Psychiatric Medical History: Reports: Dementia, Depression Past Surgical History Past Surgical History: Reports: Cardiac Catheterization Social History Smoking Status: Former Smoker Frequency of Alcohol Use: None - Advance Directive Resuscitation Status: Full Code Family History Parental Family History Reviewed: No Children Family History Reviewed: NA Sibling(s) Family History Reviewed.: NA Medication/Allergy Home Medications: Albuterol Sulfate [Proair HFA] 1 puff IH Q4HP PRN 12/16/17 Amoxicillin Trihydrate [Amoxil 500 mg Capsule] 1,000 mg PO BID 12/16/17 Aspirin [Ecotrin 81 mg EC Tablet] 81 mg PO DAILY 12/16/17 Bismuth Subsalicylate [Pepto-Bismol 262 mg Chewable Tablet] 524 mg PO QID Carvedilol [Coreg 6.25 mg Tablet] 6.25 mg PO Q12 12/16/17 Cholecalciferol (Vitamin D3) [Vitamin D3] 1,000 unit PO DAILY 12/16/17 Fluticasone/Vilanterol [Breo Ellipta 100-25 Mcg INH] 1 each IH DAILY 12/16/17 Ipratropium/Albuterol Sulfate [Combivent Respimat Inhal [place]] 1 puff PO QID 10/04 Lisinopril [Prinivil 5 mg Tablet] 5 mg PO DAILY 12/16/17 Metolazone [Zaroxolyn 2.5 Mg Tablet] 2.5 mg PO DAILY 12/16/17 Metronidazole [Flagyl 500 mg Tablet] 500 mg PO Q8 12/16/17 Omeprazole 20 mg PO BID 12/16/17 Torsemide [Demadex 20 mg Tablet] 80 mg PO DAILY 12/16/17 Tramadol HCl [Ultram 50 mg Tablet] 50 mg PO HSP PRN 12/16/17 Trazodone HCl [Desyrel 50 mg Tablet] 50 mg PO QHS 12/16/17 Warfarin Sodium [Coumadin 3 mg Tablet] 3 mg PO QPM 12/16/17 Allergies/Adverse Reactions: No Known Allergies Allergy (Verified 08/07/17 08:51) Review of Systems Constitutional: PRESENT: fatigue, weakness. ABSENT: fever(s), headache(s) Eyes: ABSENT: visual disturbances Nose, Mouth, and Throat: ABSENT: headache(s) Cardiovascular: ABSENT: chest pain, dyspnea on exertion, edema, orthropnea, palpitations Respiratory: ABSENT: cough, dyspnea Gastrointestinal: ABSENT: abdominal pain, constipation, diarrhea, nausea, vomiting Genitourinary: ABSENT: difficulty urinating, dysuria Musculoskeletal: PRESENT: muscle weakness. ABSENT: back pain Neurological: PRESENT: confusion, convulsions. ABSENT: dizziness, numbness, weakness Physical Exam Vital Signs: Temp Pulse Resp BP Pulse Ox 97.9 F 76 18 122/59 L 100 12/16/17 16:03 12/16/17 16:03 12/16/17 16:03 12/16/17 16:03 12/16/17 16:03 Intake & Output 12/15/17 12/16/17 12/17/17 06:59 06:59 06:59 Intake Total 1100 850 Output Total 200 800 Balance 900 50 Weight 69.3 kg General appearance: PRESENT: no acute distress, well-developed, well-nourished Eye exam: PRESENT: PERRLA. ABSENT: scleral icterus Mouth exam: PRESENT: neck supple. ABSENT: moist Neck exam: PRESENT: full ROM. ABSENT: JVD Respiratory exam: ABSENT: accessory muscle use, crackles, rales, rhonchi, wheezes Cardiovascular exam: PRESENT: irregular rhythm, +S1, +S2. ABSENT: RRR GI/Abdominal exam: PRESENT: soft. ABSENT: ascites, distended, rigid, tenderness Extremities exam: PRESENT: calf tenderness, tenderness. ABSENT: joint swelling , pedal edema, +1 edema, +2 edema Musculoskeletal exam: PRESENT: tenderness. ABSENT: normal inspection Neurological exam: PRESENT: altered. ABSENT: oriented to person, oriented to place, oriented to time, oriented to situation Psychiatric exam: PRESENT: appropriate affect, normal mood Skin exam: PRESENT: dry, intact, warm. ABSENT: cyanosis Results Laboratory Results: 12/16/17 10:38 12/16/17 12/16/17 10:38 10:38 Sodium 136.7 L Potassium 3.5 L Chloride 88 L Carbon Dioxide 35 H Anion Gap 14 BUN 98 H Creatinine 3.18 H Est GFR ( Amer) 17 L Est GFR (Non-Af Amer) 14 L Glucose 119 H Calcium 9.8 Total Bilirubin 0.5 AST 36 ALT 34 Alkaline Phosphatase 137 H Ammonia < 8.7 L Total Protein 6.8 Albumin 3.5 12/16/17 12/16/17 12/16/17 07:03 07:03 12:44 Creatine Kinase 48 46 CK-MB (CK-2) 0.78 Troponin I 0.053 12/16/17 12/16/17 12:44 18:30 Creatine Kinase 48 CK-MB (CK-2) 0.69 Troponin I 0.046 Impressions: Chest X-Ray 12/15/17 22:24 IMPRESSION: Patchy airspace opacities in the left lung base, possible small effusion. Head CT 12/15/17 22:24 IMPRESSION: 1. No acute intracranial abnormality by CT criteria. This exam was performed according to our departmental dose-optimization program, which includes automated exposure control, adjustment of the mA and/or kV according to patient size and/or use of iterative reconstruction technique. Abdomen/Pelvis CT 12/16/17 00:00 IMPRESSION: 1. No acute or suspicious abdominopelvic abnormality. 2. Cardiomegaly, cholelithiasis, diverticulosis. Assessment & Plan - Diagnosis (1) Renal failure (ARF), acute on chronic Qualifiers: Acute renal failure type: unspecified Chronic kidney disease stage: stage 3 (moderate) Qualified Code(s): N17.9 - Acute kidney failure, unspecified; N18.3 - Chronic kidney disease, stage 3 (moderate); N18.3 - Chronic kidney disease, stage 3 (moderate) Is this a current diagnosis for this admission?: Yes Plan: nonoliguric, due to dehydration, holding torsemide and receiving fluid. Continue saline at current dose. Reassess tomorrow (2) Seizure Is this a current diagnosis for this admission?: Yes Plan: per dr. livingston (3) Chronic a-fib Is this a current diagnosis for this admission?: Yes Plan: per dr. lanier and cardiology (4) Hypertension Qualifiers: Hypertension type: essential hypertension Qualified Code(s): I10 - Essential (primary) hypertension Is this a current diagnosis for this admission?: Yes Plan: currently controlled (5) Congestive heart failure Qualifiers: Heart failure type: systolic Heart failure chronicity: chronic Qualified Code(s): I50.22 - Chronic systolic (congestive) heart failure Is this a current diagnosis for this admission?: Yes Plan: stable (6) Coronary artery disease Qualifiers: Coronary Disease-Associated Artery/Lesion type: unspecified vessel or lesion type Is this a current diagnosis for this admission?: Yes Plan: per cardiology (7) Dementia Qualifiers: Dementia type: unspecified type Dementia behavioral disturbance: with behavioral disturbance Qualified Code(s): F03.91 - Unspecified dementia with behavioral disturbance Is this a current diagnosis for this admission?: Yes
[2017-12-16] MEDS: TRAZODONE HCL 50 MG TABLET PO SCH (21:02)
[2017-12-16] MEDS ORDERED: CARVEDILOL 6.25 MG TABLET PO SCH (22:00)
[2017-12-16] MEDS: ONDANSETRON HCL INJ/PF 4 MG/2 ML SDV IV PRN (23:30)
--- NOTE | 2017-12-16 23:33 | EKG REPORT ---
SEVERITY:- ABNORMAL ECG - SINUS RHYTHM NONSPECIFIC IVCD WITH LAD LEFT VENTRICULAR HYPERTROPHY INFERIOR INFARCT, AGE INDETERMINATE ANTERIOR Q WAVES, POSSIBLY DUE TO LVH : Confirmed by: Edis Moody 16-Dec-2017 23:32:31
[2017-12-17 05:16] LABS: ABSOLUTE EOSINOPHILS # (AUTO) 0.3 10^3/uL (0.0-0.6); ABSOLUTE LYMPHOCYTES (AUTO) 1.8 10^3/uL (0.5-4.7); ABSOLUTE MONOCYTES (AUTO) 0.6 10^3/uL (0.1-1.4); ABSOLUTE NEUT (AUTO) 2.9 10^3/uL (1.7-8.2); BASOPHILS % (AUTO) 0.8 % (0-2); EOSINOPHILS % (AUTO) 4.8 % (0-6); HEMATOCRIT 29.2 % (36.0-47.0); HEMOGLOBIN 9.6 g/dL (12.0-15.5); LYMPHOCYTES % (AUTO) 31.8 % (13-45); MEAN CORPUSCULAR HEMOGLOBIN 23.8 pg (27.0-33.4); MEAN CORPUSCULAR VOLUME 72 fl (80-97); MONOCYTES % (AUTO) 11.4 % (3-13); PLATELET COUNT 242 10^3/uL (150-450); RED BLOOD COUNT 4.05 10^6/uL (3.72-5.28); RED CELL DISTRIBUTION WIDTH 23.6 % (11.5-14.0); SEGMENTED NEUTROPHILS % (AUTO) 51.2 % (42-78); TOTAL CELLS COUNTED % (AUTO) 100 %; WHITE BLOOD COUNT 5.6 10^3/uL (4.0-10.5)
[2017-12-17 05:23] LABS: PROTHROMBIN TIME 19.8 SEC (11.4-15.4)
[2017-12-17 05:34] LABS: ANION GAP 11 (5-19); BLOOD UREA NITROGEN 99 mg/dL (7-20); CALCIUM 9.5 mg/dL (8.4-10.2); CARBON DIOXIDE 34 mmol/L (22-30); CHLORIDE 94 mmol/L (98-107); GLUCOSE 85 mg/dL (75-110); POTASSIUM 3.9 mmol/L (3.6-5.0); SODIUM 139.2 mmol/L (137-145)
[2017-12-17] MEDS ORDERED: LANSOPRAZOLE 30 MG TAB.RAP.DR PO SCH (06:00)
[2017-12-17] MEDS: LANSOPRAZOLE 15 MG TAB.RAP.DR PO SCH ×2 (06:28→18:00)
--- NOTE | 2017-12-17 08:23 | PDOC PROGRESS REPORT ---
Subjective Progress Note for:: 12/17/17 Subjective:: Patient is currently doing fair Patient's denied any chest pain denied any shortness of the breath Patient's CT abdomen and pelvis and ultrasound is all stable Patient with no seizures activity Reason For Visit: ARF Physical Exam Vital Signs: Temp Pulse Resp BP Pulse Ox 98.1 F 73 16 107/63 100 12/17/17 07:00 12/17/17 07:00 12/17/17 07:00 12/17/17 07:00 12/17/17 07:00 Intake & Output 12/16/17 12/17/17 12/18/17 06:59 06:59 06:59 Intake Total 1100 1500 Output Total 200 800 Balance 900 700 Weight 69.3 kg 71.1 kg General appearance: PRESENT: no acute distress, well-developed, well-nourished Head exam: PRESENT: atraumatic, normocephalic Eye exam: PRESENT: conjunctiva pink, EOMI, PERRLA. ABSENT: scleral icterus Ear exam: PRESENT: normal external ear exam Mouth exam: PRESENT: moist, tongue midline Neck exam: PRESENT: full ROM. ABSENT: carotid bruit, JVD, lymphadenopathy, thyromegaly Respiratory exam: PRESENT: clear to auscultation meghna Cardiovascular exam: PRESENT: RRR. ABSENT: diastolic murmur, rubs, systolic murmur Pulses: PRESENT: normal dorsalis pedis pul, +2 pedal pulses bilateral Vascular exam: PRESENT: normal capillary refill GI/Abdominal exam: PRESENT: normal bowel sounds, soft. ABSENT: distended, guarding, mass, organolmegaly, rebound, tenderness Rectal exam: PRESENT: deferred Extremities exam: ABSENT: pedal edema Neurological exam: PRESENT: alert, awake, oriented to person. ABSENT: motor sensory deficit Psychiatric exam: PRESENT: appropriate affect, normal mood. ABSENT: homicidal ideation, suicidal ideation Skin exam: PRESENT: dry, intact, warm. ABSENT: cyanosis, rash Results Laboratory Results: 12/17/17 04:43 12/17/17 04:43 12/16/17 12/16/17 12/17/17 10:38 10:38 04:43 WBC 5.6 RBC 4.05 Hgb 9.6 L Hct 29.2 L MCV 72 L MCH 23.8 L MCHC 33.0 RDW 23.6 H Plt Count 242 Seg Neutrophils % 51.2 Lymphocytes % 31.8 Monocytes % 11.4 Eosinophils % 4.8 Basophils % 0.8 Absolute Neutrophils 2.9 Absolute Lymphocytes 1.8 Absolute Monocytes 0.6 Absolute Eosinophils 0.3 Absolute Basophils 0.0 Sodium 136.7 L Potassium 3.5 L Chloride 88 L Carbon Dioxide 35 H Anion Gap 14 BUN 98 H Creatinine 3.18 H Est GFR ( Amer) 17 L Est GFR (Non-Af Amer) 14 L Glucose 119 H Calcium 9.8 Magnesium Total Bilirubin 0.5 AST 36 ALT 34 Alkaline Phosphatase 137 H Ammonia < 8.7 L Total Protein 6.8 Albumin 3.5 12/17/17 04:43 WBC RBC Hgb Hct MCV MCH MCHC RDW Plt Count Seg Neutrophils % Lymphocytes % Monocytes % Eosinophils % Basophils % Absolute Neutrophils Absolute Lymphocytes Absolute Monocytes Absolute Eosinophils Absolute Basophils Sodium 139.2 Potassium 3.9 Chloride 94 L Carbon Dioxide 34 H Anion Gap 11 BUN 99 H Creatinine 3.47 H Est GFR ( Amer) 16 L Est GFR (Non-Af Amer) 13 L Glucose 85 Calcium 9.5 Magnesium 1.9 Total Bilirubin AST ALT Alkaline Phosphatase Ammonia Total Protein Albumin 12/16/17 12/16/17 12/16/17 07:03 07:03 12:44 Creatine Kinase 48 46 CK-MB (CK-2) 0.78 Troponin I 0.053 NT-Pro-B Natriuret Pep 12/16/17 12/16/17 12/16/17 12:44 18:30 18:30 Creatine Kinase 48 CK-MB (CK-2) 0.69 0.69 Troponin I 0.046 0.045 NT-Pro-B Natriuret Pep 12/17/17 04:43 Creatine Kinase CK-MB (CK-2) Troponin I NT-Pro-B Natriuret Pep 2580 H Impressions: Chest X-Ray 12/15/17 22:24 IMPRESSION: Patchy airspace opacities in the left lung base, possible small effusion. Head CT 12/15/17 22:24 IMPRESSION: 1. No acute intracranial abnormality by CT criteria. This exam was performed according to our departmental dose-optimization program, which includes automated exposure control, adjustment of the mA and/or kV according to patient size and/or use of iterative reconstruction technique. Abdomen/Pelvis CT 12/16/17 00:00 IMPRESSION: 1. No acute or suspicious abdominopelvic abnormality. 2. Cardiomegaly, cholelithiasis, diverticulosis. Renal Ultrasound 12/16/17 00:00 IMPRESSION: The kidneys are small but otherwise normal. The bladder was not able be evaluated. Assessment & Plan - Diagnosis (1) Renal failure (ARF), acute on chronic Qualifiers: Acute renal failure type: unspecified Chronic kidney disease stage: stage 3 (moderate) Qualified Code(s): N17.9 - Acute kidney failure, unspecified; N18.3 - Chronic kidney disease, stage 3 (moderate); N18.3 - Chronic kidney disease, stage 3 (moderate) Is this a current diagnosis for this admission?: Yes Plan: Continues to IV fluid (2) Seizure Is this a current diagnosis for this admission?: Yes Plan: Switch to the p.o. Keppra (3) Hypertension Qualifiers: Hypertension type: essential hypertension Qualified Code(s): I10 - Essential (primary) hypertension Is this a current diagnosis for this admission?: Yes Plan: Currently all stable (4) Congestive heart failure Qualifiers: Heart failure type: systolic Heart failure chronicity: chronic Qualified Code(s): I50.22 - Chronic systolic (congestive) heart failure Is this a current diagnosis for this admission?: Yes Plan: Currently follow with the benefits manager currently hold her diuretics (5) Coronary artery disease Qualifiers: Coronary Disease-Associated Artery/Lesion type: unspecified vessel or lesion type Is this a current diagnosis for this admission?: Yes Plan: We consult the cardiology and repeat the cardiac enzyme (6) Dementia Qualifiers: Dementia type: unspecified type Dementia behavioral disturbance: with behavioral disturbance Qualified Code(s): F03.91 - Unspecified dementia with behavioral disturbance Is this a current diagnosis for this admission?: Yes Plan: Patient's currently also see a neurology (7) History of implantable cardioverter-defibrillator (ICD) placement Is this a current diagnosis for this admission?: Yes Plan: Current CT of the head is negative (8) Vomiting Qualifiers: Vomiting type: unspecified Vomiting Intractability: non-intractable Nausea presence: with nausea Qualified Code(s): R11.2 - Nausea with vomiting, unspecified Is this a current diagnosis for this admission?: Yes (9) Chronic a-fib Is this a current diagnosis for this admission?: Yes Plan: Currently in a chronic Coumadin INR is 1.5 (10) Noncompliance Is this a current diagnosis for this admission?: Yes Plan: This with the patient's family including the daughter and the sister in the room regarding the patient's current conditions and requires a multiple fall of the doctors and discuss about the sending to the rehab's and the sisters really wants to continues at home and she will talk with all the other family member to continue some more compliance with the medication in the follow-up - Time Time Spent with patient: 15-24 minutes Medications reviewed and adjusted accordingly: Yes Anticipated discharge: Home Within: Other - Inpatient Certification Medical Necessity: Need Close Monitoring Due to Risk of Patient Decompensation Post Hospital Care: D/C Field Organizer Documentation - Plan Summary Plan Summary: Will get the physical therapy evaluations
--- NOTE | 2017-12-17 08:50 | EEG PRO FEE REPORT ---
EEG INTERPRETATION PATIENT NAME: NAYELI MCKEON ROOM#: [facility] ORDER#: [id number] DATE OF STUDY: 12/16/2017 : 1945 REFERRING MD: ANDREI SWAIN M.D. DIAGNOSIS: Seizure REPORT The background activity consists of 8-10 Hz alpha throughout of low voltage. No clear focal slowing, amplitude asymmetry, or epileptiform discharges are seen a good deal of motion artifact is noted. IMPRESSION Overall this appears to be within normal limits. INTERPRETING PHYSICIAN: SHAISTA HACKETT M.D. /: [id number] TT: [id number] ID: [id number] /: [id number] TD: [id number] JOB: [id number] cc:John SMITH M.D. >
[2017-12-17] MEDS ORDERED: (PENDING PHARMACY ID) (Fluticasone/Vilanterol [Breo Ellipta 100-25 Mcg Inh] 1 EACH) IH SCH (10:00)
[2017-12-17] MEDS: ASPIRIN 81 MG TABLET, ENT COATED PO SCH (11:20)
[2017-12-17] MEDS: LEVETIRACETAM 500 MG/NACL-ISO 500 MG/100 ML RTUPB IV SCH (11:21)
--- NOTE | 2017-12-17 12:50 | PDOC PROGRESS REPORT ---
Subjective Progress Note for:: 12/17/17 Subjective:: Patient seen laying in bed today eating her breakfast. Her was at her side. She at the time had no major concerns. She denied chest pain, SOB, n/v/d/c , fevers or chills. Her legs are less sore today. According to the nurse in charge of her care she is voiding more than is being collected due to her getting up on her own, so her I/Os is not accurate. Reason For Visit: ARF Physical Exam Vital Signs: Temp Pulse Resp BP Pulse Ox 98.1 F 73 16 107/63 100 12/17/17 07:00 12/17/17 07:00 12/17/17 07:00 12/17/17 07:00 12/17/17 07:00 Intake & Output 12/16/17 12/17/17 12/18/17 06:59 06:59 06:59 Intake Total 1100 1500 Output Total 200 800 Balance 900 700 Weight 69.3 kg 71.1 kg General appearance: PRESENT: no acute distress, well-developed, well-nourished Mouth exam: PRESENT: neck supple. ABSENT: moist Neck exam: PRESENT: full ROM. ABSENT: JVD Respiratory exam: PRESENT: clear to auscultation meghna. ABSENT: accessory muscle use, crackles, rales, rhonchi, wheezes Cardiovascular exam: PRESENT: irregular rhythm, +S1, +S2. ABSENT: RRR GI/Abdominal exam: PRESENT: soft. ABSENT: ascites, distended, rigid, tenderness Extremities exam: PRESENT: tenderness. ABSENT: pedal edema, +1 edema, +2 edema Musculoskeletal exam: PRESENT: normal inspection. ABSENT: tenderness Neurological exam: PRESENT: alert, awake, oriented to person, oriented to place , oriented to situation. ABSENT: oriented to time Psychiatric exam: PRESENT: appropriate affect, normal mood Skin exam: PRESENT: dry, intact, warm. ABSENT: cyanosis Results Laboratory Results: 12/17/17 04:43 12/17/17 04:43 12/17/17 12/17/17 04:43 04:43 WBC 5.6 RBC 4.05 Hgb 9.6 L Hct 29.2 L MCV 72 L MCH 23.8 L MCHC 33.0 RDW 23.6 H Plt Count 242 Seg Neutrophils % 51.2 Lymphocytes % 31.8 Monocytes % 11.4 Eosinophils % 4.8 Basophils % 0.8 Absolute Neutrophils 2.9 Absolute Lymphocytes 1.8 Absolute Monocytes 0.6 Absolute Eosinophils 0.3 Absolute Basophils 0.0 Sodium 139.2 Potassium 3.9 Chloride 94 L Carbon Dioxide 34 H Anion Gap 11 BUN 99 H Creatinine 3.47 H Est GFR ( Amer) 16 L Est GFR (Non-Af Amer) 13 L Glucose 85 Calcium 9.5 Magnesium 1.9 12/16/17 12/16/17 12/16/17 07:03 07:03 12:44 Creatine Kinase 48 46 CK-MB (CK-2) 0.78 Troponin I 0.053 NT-Pro-B Natriuret Pep 12/16/17 12/16/17 12/16/17 12:44 18:30 18:30 Creatine Kinase 48 CK-MB (CK-2) 0.69 0.69 Troponin I 0.046 0.045 NT-Pro-B Natriuret Pep 12/17/17 04:43 Creatine Kinase CK-MB (CK-2) Troponin I NT-Pro-B Natriuret Pep 2580 H Impressions: Chest X-Ray 12/15/17 22:24 IMPRESSION: Patchy airspace opacities in the left lung base, possible small effusion. Head CT 12/15/17 22:24 IMPRESSION: 1. No acute intracranial abnormality by CT criteria. This exam was performed according to our departmental dose-optimization program, which includes automated exposure control, adjustment of the mA and/or kV according to patient size and/or use of iterative reconstruction technique. Abdomen/Pelvis CT 12/16/17 00:00 IMPRESSION: 1. No acute or suspicious abdominopelvic abnormality. 2. Cardiomegaly, cholelithiasis, diverticulosis. Renal Ultrasound 12/16/17 00:00 IMPRESSION: The kidneys are small but otherwise normal. The bladder was not able be evaluated. Assessment & Plan - Diagnosis (1) Renal failure (ARF), acute on chronic Qualifiers: Acute renal failure type: unspecified Chronic kidney disease stage: stage 3 (moderate) Qualified Code(s): N17.9 - Acute kidney failure, unspecified; N18.3 - Chronic kidney disease, stage 3 (moderate); N18.3 - Chronic kidney disease, stage 3 (moderate) Is this a current diagnosis for this admission?: Yes Plan: remains nonolguric, need to adjust all medications for a GFR less than 25. Will look to stop carvedolol for now due to lower bps. (2) Seizure Is this a current diagnosis for this admission?: Yes Plan: per Dr. Moncada (3) Chronic a-fib Is this a current diagnosis for this admission?: Yes Plan: Per cardiology (4) Hypertension Qualifiers: Hypertension type: essential hypertension Qualified Code(s): I10 - Essential (primary) hypertension Is this a current diagnosis for this admission?: Yes Plan: stopping carvedolol for now due to lower bps (5) Congestive heart failure Qualifiers: Heart failure type: systolic Heart failure chronicity: chronic Qualified Code(s): I50.22 - Chronic systolic (congestive) heart failure Is this a current diagnosis for this admission?: Yes Plan: stable (6) Coronary artery disease Qualifiers: Coronary Disease-Associated Artery/Lesion type: unspecified vessel or lesion type Is this a current diagnosis for this admission?: Yes Plan: per cardiology (7) Dementia Qualifiers: Dementia type: unspecified type Dementia behavioral disturbance: with behavioral disturbance Qualified Code(s): F03.91 - Unspecified dementia with behavioral disturbance Is this a current diagnosis for this admission?: Yes - Notes Notes: Patients case and care plan was discussed with Dr. Wagner
[2017-12-17] MEDS: WARFARIN SODIUM 3 MG TABLET PO SCH (18:01)
--- NOTE | 2017-12-17 18:41 | PDOC PROGRESS REPORT ---
Subjective Progress Note for:: 12/17/17 Subjective:: Patient seems to be doing better. Renal functions however have not improved. Pt is denying any chest arm or neck discomfort. Patient denying any PND, orthopnea. Patient denied any sustained palpitations, dizziness, syncope, near syncope. Patient denying any fever chills. Patient denying any other significant discomfort. Patient's at bedside Patient is maintaining sinus rhythm. Review of systems: Rest review of systems negative. Medications: Medications have been reviewed. Reason For Visit: ARF Physical Exam Vital Signs: Temp Pulse Resp BP Pulse Ox 98.1 F 76 16 107/66 100 12/17/17 15:47 12/17/17 15:47 12/17/17 15:47 12/17/17 15:47 12/17/17 15:47 Intake & Output 12/16/17 12/17/17 12/18/17 06:59 06:59 06:59 Intake Total 1100 1500 240 Output Total 200 800 850 Balance 900 700 -610 Weight 69.3 kg 71.1 kg Exam: GENERAL: well-nourished and in no acute distress. Alert and oriented x3 HEAD: Atraumatic, normocephalic. EYES: Pupils equal round and reactive to light, extraocular movements intact, sclera anicteric, conjunctiva are normal. ENT: TMs normal, nares patent, oropharynx clear without exudates. Moist mucous membranes. No oral ulcerations or bleeding gums noted NECK: supple without lymphadenopathy. Trachea is central. No cervical or axillary lymphadenopathy noted. Carotids are 2+, JVD WNL LUNGS: Respiration seems nonlabored, no significant accessory muscle action noted. Breath sounds clear to auscultation bilaterally and equal noted. No wheezes rales or rhonchi noted. No significant dullness noted on percussion. CHEST: Palpation of the chest wall shows no significant chest wall tenderness. Defibrillator noted left-sided chest. 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 ABDOMEN: Soft, no significant tenderness appreciated, normoactive bowel sounds. No guarding, no rebound. No rigidity noted . No masses appreciated. EXTREMITIES: Pedal pulses are 1-2+, no calf tenderness noted. No clubbing or cyanosis. negative pedal edema noted NEUROLOGICAL: Focused neurological exam showed no significant neurologic deficit. Normal speech, no focal weakness appreciated. PSYCH: Normal mood, normal affect. Judgment and insight within normal limits. SKIN: No significant ecchymosis, skin is noted to be warm. MUSCULOSKELETAL EXAM: No significant acute joint swelling noted. Results Laboratory Results: 12/17/17 04:43 12/17/17 04:43 12/17/17 12/17/17 04:43 04:43 WBC 5.6 RBC 4.05 Hgb 9.6 L Hct 29.2 L MCV 72 L MCH 23.8 L MCHC 33.0 RDW 23.6 H Plt Count 242 Seg Neutrophils % 51.2 Lymphocytes % 31.8 Monocytes % 11.4 Eosinophils % 4.8 Basophils % 0.8 Absolute Neutrophils 2.9 Absolute Lymphocytes 1.8 Absolute Monocytes 0.6 Absolute Eosinophils 0.3 Absolute Basophils 0.0 Sodium 139.2 Potassium 3.9 Chloride 94 L Carbon Dioxide 34 H Anion Gap 11 BUN 99 H Creatinine 3.47 H Est GFR ( Amer) 16 L Est GFR (Non-Af Amer) 13 L Glucose 85 Calcium 9.5 Magnesium 1.9 12/16/17 12/16/17 12/16/17 07:03 07:03 12:44 Creatine Kinase 48 46 CK-MB (CK-2) 0.78 Troponin I 0.053 NT-Pro-B Natriuret Pep 12/16/17 12/16/17 12/16/17 12:44 18:30 18:30 Creatine Kinase 48 CK-MB (CK-2) 0.69 0.69 Troponin I 0.046 0.045 NT-Pro-B Natriuret Pep 12/17/17 04:43 Creatine Kinase CK-MB (CK-2) Troponin I NT-Pro-B Natriuret Pep 2580 H EKG Comments: Telemetry strip shows sinus rhythm with bundle branch block pattern versus paced beats Impressions: Chest X-Ray 12/15/17 22:24 IMPRESSION: Patchy airspace opacities in the left lung base, possible small effusion. Head CT 12/15/17 22:24 IMPRESSION: 1. No acute intracranial abnormality by CT criteria. This exam was performed according to our departmental dose-optimization program, which includes automated exposure control, adjustment of the mA and/or kV according to patient size and/or use of iterative reconstruction technique. Abdomen/Pelvis CT 12/16/17 00:00 IMPRESSION: 1. No acute or suspicious abdominopelvic abnormality. 2. Cardiomegaly, cholelithiasis, diverticulosis. Renal Ultrasound 12/16/17 00:00 IMPRESSION: The kidneys are small but otherwise normal. The bladder was not able be evaluated. Assessment & Plan - Diagnosis (1) Renal failure (ARF), acute on chronic Qualifiers: Acute renal failure type: unspecified Chronic kidney disease stage: stage 3 (moderate) Qualified Code(s): N17.9 - Acute kidney failure, unspecified; N18.3 - Chronic kidney disease, stage 3 (moderate); N18.3 - Chronic kidney disease, stage 3 (moderate) Is this a current diagnosis for this admission?: Yes (2) Congestive heart failure Qualifiers: Heart failure type: systolic Heart failure chronicity: chronic Qualified Code(s): I50.22 - Chronic systolic (congestive) heart failure Is this a current diagnosis for this admission?: Yes (3) Coronary artery disease Qualifiers: Coronary Disease-Associated Artery/Lesion type: unspecified vessel or lesion type Is this a current diagnosis for this admission?: Yes (4) Dementia Qualifiers: Dementia type: unspecified type Dementia behavioral disturbance: with behavioral disturbance Qualified Code(s): F03.91 - Unspecified dementia with behavioral disturbance Is this a current diagnosis for this admission?: Yes (5) History of implantable cardioverter-defibrillator (ICD) placement Is this a current diagnosis for this admission?: Yes (6) Hypertension Qualifiers: Hypertension type: essential hypertension Qualified Code(s): I10 - Essential (primary) hypertension Is this a current diagnosis for this admission?: Yes (7) Paroxysmal atrial fibrillation Is this a current diagnosis for this admission?: Yes - Notes Notes: No significant change in patient condition. Renal functions have not improved. Acute on chronic renal failure: Exact etiology not clear but basically patient seems dehydrated and volume contracted. Agree with holding diuretics. If renal functions do not improve then it could be related to poor cardiac output. We will consider repeating a 2D echocardiogram. Congestive heart failure: Currently seems compensated. Monitor weight, fluid intake output. Continue with salt and fluid restriction. Coronary artery disease: Patient is symptomatically stable without any angina or angina equivalent symptoms. History of implantable cardioverter defibrillator: Currently stable. No recent defibrillator discharges noted by the family or patient. Hypertension: Blood pressure currently on the low side. Agree with holding antihypertensive at this point. May consider restarting beta-adri at a lower dose. Paroxysmal atrial fibrillation: Patient noted to be in sinus rhythm on EKGs. Continue to monitor patient heart rhythm. - Time Time with patient: 15-25 minutes - CODE STATUS was discussed, patient remains full code. Surrogate decision-maker unchanged. Multiple medical problems were addressed. More than 50% of the time spent coordinating care, discussing management plans with involved caregivers. Management plans discussed with involved personnels. Medical decision making was of moderate to high complexity , patient's has multiple comorbidities. Medications reviewed and adjusted accordingly: Yes
[2017-12-17] MEDS: TRAZODONE HCL 50 MG TABLET PO SCH (21:56)
[2017-12-17] MEDS: LEVETIRACETAM 500 MG TABLET PO SCH (21:56)
[2017-12-18 04:42] LABS: ABSOLUTE BASOPHILS # (AUTO) 0.1 10^3/uL (0.0-0.2); ABSOLUTE EOSINOPHILS # (AUTO) 0.4 10^3/uL (0.0-0.6); ABSOLUTE LYMPHOCYTES (AUTO) 1.6 10^3/uL (0.5-4.7); ABSOLUTE MONOCYTES (AUTO) 0.5 10^3/uL (0.1-1.4); ABSOLUTE NEUT (AUTO) 2.8 10^3/uL (1.7-8.2); BASOPHILS % (AUTO) 1.2 % (0-2); EOSINOPHILS % (AUTO) 7.3 % (0-6); HEMATOCRIT 27.7 % (36.0-47.0); LYMPHOCYTES % (AUTO) 29.7 % (13-45); MEAN CORPUSCULAR HEMOGLOBIN 23.7 pg (27.0-33.4); MEAN CORPUSCULAR HGB CONC 32.6 g/dL (32.0-36.0); MEAN CORPUSCULAR VOLUME 73 fl (80-97); MONOCYTES % (AUTO) 9.3 % (3-13); PLATELET COUNT 229 10^3/uL (150-450); RED BLOOD COUNT 3.81 10^6/uL (3.72-5.28); RED CELL DISTRIBUTION WIDTH 23.3 % (11.5-14.0); SEGMENTED NEUTROPHILS % (AUTO) 52.5 % (42-78); TOTAL CELLS COUNTED % (AUTO) 100 %; WHITE BLOOD COUNT 5.3 10^3/uL (4.0-10.5)
[2017-12-18 04:43] LABS: INTERNATIONAL RATION (INR) 1.61
[2017-12-18 04:55] LABS: ANION GAP 9 (5-19); BLOOD UREA NITROGEN 83 mg/dL (7-20); CALCIUM 9.3 mg/dL (8.4-10.2); CARBON DIOXIDE 33 mmol/L (22-30); CHLORIDE 100 mmol/L (98-107); GLUCOSE 86 mg/dL (75-110); POTASSIUM 4.1 mmol/L (3.6-5.0); SODIUM 141.8 mmol/L (137-145)
[2017-12-18 05:17] LABS: ANISOCYTOSIS 3+; OVALOCYTES 1+; PLATELET COMMENT ADEQUATE; POIKILOCYTOSIS 1+; SCHISTOCYTES SLIGHT; TARGET CELLS SLIGHT
[2017-12-18] MEDS: LANSOPRAZOLE 15 MG TAB.RAP.DR PO SCH ×2 (06:17→18:17)
[2017-12-18] MEDS: ASPIRIN 81 MG TABLET, ENT COATED PO SCH (10:34)
[2017-12-18] MEDS: LEVETIRACETAM 500 MG TABLET PO SCH ×2 (10:34→21:17)
[2017-12-18] MEDS: NORMAL SALINE 1000 ML 1,000 ML IV PRN (11:51)
--- NOTE | 2017-12-18 11:51 | PDOC PROGRESS REPORT ---
Subjective Progress Note for:: 12/18/17 Subjective:: Patient seems to be doing better. Renal functions showing some improvement. Pt is denying any chest arm or neck discomfort. Patient denying any PND, orthopnea. Patient denied any sustained palpitations, dizziness, syncope, near syncope. Patient denying any fever chills. Patient denying any other significant discomfort. Currently receiving IV fluids. Patient is maintaining sinus rhythm. Review of systems: Rest review of systems negative. Medications: Medications have been reviewed. Reason For Visit: ARF Physical Exam Vital Signs: Temp Pulse Resp BP Pulse Ox 98.9 F 83 16 123/66 99 12/18/17 07:31 12/18/17 07:31 12/18/17 07:31 12/18/17 07:31 12/18/17 07:31 Intake & Output 12/17/17 12/18/17 12/19/17 06:59 06:59 06:59 Intake Total 1500 1607 Output Total 800 1168 Balance 700 439 Weight 71.1 kg 72.3 kg Exam: GENERAL: well-nourished and in no acute distress. Alert and oriented x2 HEAD: Atraumatic, normocephalic. EYES: Pupils equal round and reactive to light, extraocular movements intact, sclera anicteric, conjunctiva are normal. ENT: TMs normal, nares patent, oropharynx clear without exudates. Moist mucous membranes. No oral ulcerations or bleeding gums noted NECK: supple without lymphadenopathy. Trachea is central. No cervical or axillary lymphadenopathy noted. Carotids are 2+, JVD WNL LUNGS: Respiration seems nonlabored, no significant accessory muscle action noted. Breath sounds clear to auscultation bilaterally and equal noted. No wheezes rales or rhonchi noted. No significant dullness noted on percussion. CHEST: Palpation of the chest wall shows no significant chest wall tenderness. 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 ABDOMEN: Soft, no significant tenderness appreciated, normoactive bowel sounds. No guarding, no rebound. No rigidity noted . No masses appreciated. EXTREMITIES: Pedal pulses are 1-2+, no calf tenderness noted. No clubbing or cyanosis. negative pedal edema noted NEUROLOGICAL: Focused neurological exam showed no significant neurologic deficit. Normal speech, no focal weakness appreciated. PSYCH: Normal mood, normal affect. Judgment and insight somewhat impaired because of dementia. SKIN: No significant ecchymosis, skin is noted to be warm. MUSCULOSKELETAL EXAM: No significant acute joint swelling noted. Results Laboratory Results: 12/18/17 04:05 12/18/17 04:05 12/18/17 12/18/17 04:05 04:05 WBC 5.3 RBC 3.81 Hgb 9.0 L Hct 27.7 L MCV 73 L MCH 23.7 L MCHC 32.6 RDW 23.3 H Plt Count 229 Seg Neutrophils % 52.5 Lymphocytes % 29.7 Monocytes % 9.3 Eosinophils % 7.3 H Basophils % 1.2 Absolute Neutrophils 2.8 Absolute Lymphocytes 1.6 Absolute Monocytes 0.5 Absolute Eosinophils 0.4 Absolute Basophils 0.1 Sodium 141.8 Potassium 4.1 Chloride 100 Carbon Dioxide 33 H Anion Gap 9 BUN 83 H Creatinine 2.51 H Est GFR ( Amer) 23 L Est GFR (Non-Af Amer) 19 L Glucose 86 Calcium 9.3 Magnesium 2.0 12/16/17 12/16/17 12/16/17 07:03 07:03 12:44 Creatine Kinase 48 46 CK-MB (CK-2) 0.78 Troponin I 0.053 NT-Pro-B Natriuret Pep 12/16/17 12/16/17 12/16/17 12:44 18:30 18:30 Creatine Kinase 48 CK-MB (CK-2) 0.69 0.69 Troponin I 0.046 0.045 NT-Pro-B Natriuret Pep 12/17/17 04:43 Creatine Kinase CK-MB (CK-2) Troponin I NT-Pro-B Natriuret Pep 2580 H EKG Comments: Shows sinus rhythm with left bundle branch block. No sustained tacky or bradyarrhythmias noted. Impressions: Chest X-Ray 12/15/17 22:24 IMPRESSION: Patchy airspace opacities in the left lung base, possible small effusion. Head CT 12/15/17 22:24 IMPRESSION: 1. No acute intracranial abnormality by CT criteria. This exam was performed according to our departmental dose-optimization program, which includes automated exposure control, adjustment of the mA and/or kV according to patient size and/or use of iterative reconstruction technique. Abdomen/Pelvis CT 12/16/17 00:00 IMPRESSION: 1. No acute or suspicious abdominopelvic abnormality. 2. Cardiomegaly, cholelithiasis, diverticulosis. Renal Ultrasound 12/16/17 00:00 IMPRESSION: The kidneys are small but otherwise normal. The bladder was not able be evaluated. Assessment & Plan - Diagnosis (1) Renal failure (ARF), acute on chronic Qualifiers: Acute renal failure type: unspecified Chronic kidney disease stage: stage 3 (moderate) Qualified Code(s): N17.9 - Acute kidney failure, unspecified; N18.3 - Chronic kidney disease, stage 3 (moderate); N18.3 - Chronic kidney disease, stage 3 (moderate) Is this a current diagnosis for this admission?: Yes (2) Congestive heart failure Qualifiers: Heart failure type: systolic Heart failure chronicity: chronic Qualified Code(s): I50.22 - Chronic systolic (congestive) heart failure Is this a current diagnosis for this admission?: Yes (3) Coronary artery disease Qualifiers: Coronary Disease-Associated Artery/Lesion type: unspecified vessel or lesion type Is this a current diagnosis for this admission?: Yes (4) Dementia Qualifiers: Dementia type: unspecified type Dementia behavioral disturbance: with behavioral disturbance Qualified Code(s): F03.91 - Unspecified dementia with behavioral disturbance Is this a current diagnosis for this admission?: Yes (5) History of implantable cardioverter-defibrillator (ICD) placement Is this a current diagnosis for this admission?: Yes (6) Hypertension Qualifiers: Hypertension type: essential hypertension Qualified Code(s): I10 - Essential (primary) hypertension Is this a current diagnosis for this admission?: Yes (7) Paroxysmal atrial fibrillation Is this a current diagnosis for this admission?: Yes - Notes Notes: Continue slow hydration. Continue to hold diuretics. Patient noted to be able to lay flat without any shortness of breath. Follow neurology recommendations. Acute on chronic renal failure: Exact etiology not clear but basically patient seems dehydrated and volume contracted. Agree with holding diuretics. If renal functions do not improve then it could be related to poor cardiac output. In that case we will consider repeating a 2D echocardiogram. Congestive heart failure: Currently seems compensated. Monitor weight, fluid intake output. Continue with salt and fluid restriction. Coronary artery disease: Patient is symptomatically stable without any angina or angina equivalent symptoms. History of implantable cardioverter defibrillator: Currently stable. No recent defibrillator discharges noted by the family or patient. Hypertension: Blood pressure currently on the low side. Agree with holding antihypertensive at this point. May consider restarting beta-adri at a lower dose. Paroxysmal atrial fibrillation: Patient noted to be in sinus rhythm on EKGs. Continue to monitor patient heart rhythm. - Time Time with patient: 15-25 minutes - CODE STATUS was discussed, patient remains full code. Surrogate decision-maker unchanged. Multiple medical problems were addressed. More than 50% of the time spent coordinating care, discussing management plans with involved caregivers. Management plans discussed with involved personnels. Medical decision making was of moderate to high complexity , patient's has multiple comorbidities. Medications reviewed and adjusted accordingly: Yes
--- NOTE | 2017-12-18 12:42 | PDOC PROGRESS REPORT ---
Subjective Progress Note for:: 12/18/17 Subjective:: Patient is currently doing well Patient's denied any chest pain denied any shortness of the breath Reason For Visit: ARF Physical Exam Vital Signs: Temp Pulse Resp BP Pulse Ox 98.2 F 84 20 118/65 100 12/18/17 11:24 12/18/17 11:24 12/18/17 11:24 12/18/17 11:24 12/18/17 11:24 Intake & Output 12/17/17 12/18/17 12/19/17 06:59 06:59 06:59 Intake Total 1500 1607 437 Output Total 800 1168 580 Balance 700 439 -143 Weight 71.1 kg 72.3 kg General appearance: PRESENT: no acute distress, well-developed, well-nourished Head exam: PRESENT: atraumatic, normocephalic Eye exam: PRESENT: conjunctiva pink, EOMI, PERRLA. ABSENT: scleral icterus Ear exam: PRESENT: normal external ear exam Mouth exam: PRESENT: moist, tongue midline Neck exam: PRESENT: full ROM. ABSENT: carotid bruit, JVD, lymphadenopathy, thyromegaly Respiratory exam: PRESENT: clear to auscultation meghna Cardiovascular exam: PRESENT: RRR. ABSENT: diastolic murmur, rubs, systolic murmur Pulses: PRESENT: normal dorsalis pedis pul, +2 pedal pulses bilateral Vascular exam: PRESENT: normal capillary refill GI/Abdominal exam: PRESENT: normal bowel sounds, soft. ABSENT: distended, guarding, mass, organolmegaly, rebound, tenderness Rectal exam: PRESENT: deferred Extremities exam: ABSENT: pedal edema Neurological exam: PRESENT: alert, awake, oriented to person, oriented to place , oriented to time, oriented to situation, CN II-XII grossly intact. ABSENT: motor sensory deficit Psychiatric exam: PRESENT: appropriate affect, normal mood. ABSENT: homicidal ideation, suicidal ideation Skin exam: PRESENT: dry, intact, warm. ABSENT: cyanosis, rash Results Laboratory Results: 12/18/17 04:05 12/18/17 04:05 12/18/17 12/18/17 04:05 04:05 WBC 5.3 RBC 3.81 Hgb 9.0 L Hct 27.7 L MCV 73 L MCH 23.7 L MCHC 32.6 RDW 23.3 H Plt Count 229 Seg Neutrophils % 52.5 Lymphocytes % 29.7 Monocytes % 9.3 Eosinophils % 7.3 H Basophils % 1.2 Absolute Neutrophils 2.8 Absolute Lymphocytes 1.6 Absolute Monocytes 0.5 Absolute Eosinophils 0.4 Absolute Basophils 0.1 Sodium 141.8 Potassium 4.1 Chloride 100 Carbon Dioxide 33 H Anion Gap 9 BUN 83 H Creatinine 2.51 H Est GFR ( Amer) 23 L Est GFR (Non-Af Amer) 19 L Glucose 86 Calcium 9.3 Magnesium 2.0 12/16/17 12/16/17 12/16/17 07:03 07:03 12:44 Creatine Kinase 48 46 CK-MB (CK-2) 0.78 Troponin I 0.053 NT-Pro-B Natriuret Pep 12/16/17 12/16/17 12/16/17 12:44 18:30 18:30 Creatine Kinase 48 CK-MB (CK-2) 0.69 0.69 Troponin I 0.046 0.045 NT-Pro-B Natriuret Pep 12/17/17 04:43 Creatine Kinase CK-MB (CK-2) Troponin I NT-Pro-B Natriuret Pep 2580 H Impressions: Chest X-Ray 12/15/17 22:24 IMPRESSION: Patchy airspace opacities in the left lung base, possible small effusion. Head CT 12/15/17 22:24 IMPRESSION: 1. No acute intracranial abnormality by CT criteria. This exam was performed according to our departmental dose-optimization program, which includes automated exposure control, adjustment of the mA and/or kV according to patient size and/or use of iterative reconstruction technique. Abdomen/Pelvis CT 12/16/17 00:00 IMPRESSION: 1. No acute or suspicious abdominopelvic abnormality. 2. Cardiomegaly, cholelithiasis, diverticulosis. Renal Ultrasound 12/16/17 00:00 IMPRESSION: The kidneys are small but otherwise normal. The bladder was not able be evaluated. Assessment & Plan - Diagnosis (1) Renal failure (ARF), acute on chronic Qualifiers: Acute renal failure type: unspecified Chronic kidney disease stage: stage 3 (moderate) Qualified Code(s): N17.9 - Acute kidney failure, unspecified; N18.3 - Chronic kidney disease, stage 3 (moderate); N18.3 - Chronic kidney disease, stage 3 (moderate) Is this a current diagnosis for this admission?: Yes Plan: Continues to IV fluid (2) Seizure Is this a current diagnosis for this admission?: Yes Plan: Switch to the p.o. 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 (5) Coronary artery disease Qualifiers: Coronary Disease-Associated Artery/Lesion type: unspecified vessel or lesion type Is this a current diagnosis for this admission?: Yes Plan: We consult the cardiology and repeat the cardiac enzyme (6) Dementia Qualifiers: Dementia type: unspecified type Dementia behavioral disturbance: with behavioral disturbance Qualified Code(s): F03.91 - Unspecified dementia with behavioral disturbance Is this a current diagnosis for this admission?: Yes Plan: Patient's currently also see a neurology (7) History of implantable cardioverter-defibrillator (ICD) placement Is this a current diagnosis for this admission?: Yes Plan: Current CT of the head is negative (8) Vomiting Qualifiers: Vomiting type: unspecified Vomiting Intractability: non-intractable Nausea presence: with nausea Qualified Code(s): R11.2 - Nausea with vomiting, unspecified Is this a current diagnosis for this admission?: Yes (9) Chronic a-fib Is this a current diagnosis for this admission?: Yes Plan: Currently in a chronic Coumadin INR is 1.5 (10) Noncompliance Is this a current diagnosis for this admission?: Yes - Time Time Spent with patient: 15-24 minutes Medications reviewed and adjusted accordingly: Yes Anticipated discharge: Home Within: Other - Inpatient Certification Medical Necessity: Need Close Monitoring Due to Risk of Patient Decompensation 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
--- NOTE | 2017-12-18 16:41 | PDOC PROGRESS REPORT ---
Subjective Progress Note for:: 12/18/17 Subjective:: Patient was seen sitting up on the side of her bed eating ice cream. At the time she was showing some agitation. This sister was also sitting at the bedside concerned about her diagnosis of dementia. At the time the patient denied chest pain, SOB, n/v/d/c, fevers or chills. Reason For Visit: ARF Physical Exam Vital Signs: Temp Pulse Resp BP Pulse Ox 98.3 F 83 16 114/60 100 12/18/17 15:48 12/18/17 15:48 12/18/17 13:52 12/18/17 15:48 12/18/17 15:48 Intake & Output 12/17/17 12/18/17 12/19/17 06:59 06:59 06:59 Intake Total 1500 1607 437 Output Total 800 1168 580 Balance 700 439 -143 Weight 71.1 kg 72.3 kg General appearance: PRESENT: no acute distress, well-developed, well-nourished Mouth exam: PRESENT: moist, neck supple Neck exam: PRESENT: full ROM. ABSENT: JVD Respiratory exam: PRESENT: clear to auscultation meghna. ABSENT: crackles, rales, rhonchi, wheezes Cardiovascular exam: PRESENT: irregular rhythm, +S1, +S2. ABSENT: RRR GI/Abdominal exam: PRESENT: soft. ABSENT: ascites, distended, rigid, tenderness Extremities exam: PRESENT: tenderness. ABSENT: pedal edema, +1 edema, +2 edema Musculoskeletal exam: PRESENT: tenderness. ABSENT: normal inspection Neurological exam: PRESENT: alert, awake, oriented to person, oriented to place Psychiatric exam: PRESENT: agitated, unusual affect Skin exam: PRESENT: dry, intact, warm. ABSENT: cyanosis Results Laboratory Results: 12/18/17 04:05 12/18/17 04:05 12/18/17 12/18/17 04:05 04:05 WBC 5.3 RBC 3.81 Hgb 9.0 L Hct 27.7 L MCV 73 L MCH 23.7 L MCHC 32.6 RDW 23.3 H Plt Count 229 Seg Neutrophils % 52.5 Lymphocytes % 29.7 Monocytes % 9.3 Eosinophils % 7.3 H Basophils % 1.2 Absolute Neutrophils 2.8 Absolute Lymphocytes 1.6 Absolute Monocytes 0.5 Absolute Eosinophils 0.4 Absolute Basophils 0.1 Sodium 141.8 Potassium 4.1 Chloride 100 Carbon Dioxide 33 H Anion Gap 9 BUN 83 H Creatinine 2.51 H Est GFR ( Amer) 23 L Est GFR (Non-Af Amer) 19 L Glucose 86 Calcium 9.3 Magnesium 2.0 12/16/17 12/16/17 12/16/17 07:03 07:03 12:44 Creatine Kinase 48 46 CK-MB (CK-2) 0.78 Troponin I 0.053 NT-Pro-B Natriuret Pep 12/16/17 12/16/17 12/16/17 12:44 18:30 18:30 Creatine Kinase 48 CK-MB (CK-2) 0.69 0.69 Troponin I 0.046 0.045 NT-Pro-B Natriuret Pep 12/17/17 04:43 Creatine Kinase CK-MB (CK-2) Troponin I NT-Pro-B Natriuret Pep 2580 H Impressions: Chest X-Ray 12/15/17 22:24 IMPRESSION: Patchy airspace opacities in the left lung base, possible small effusion. Head CT 12/15/17 22:24 IMPRESSION: 1. No acute intracranial abnormality by CT criteria. This exam was performed according to our departmental dose-optimization program, which includes automated exposure control, adjustment of the mA and/or kV according to patient size and/or use of iterative reconstruction technique. Abdomen/Pelvis CT 12/16/17 00:00 IMPRESSION: 1. No acute or suspicious abdominopelvic abnormality. 2. Cardiomegaly, cholelithiasis, diverticulosis. Renal Ultrasound 12/16/17 00:00 IMPRESSION: The kidneys are small but otherwise normal. The bladder was not able be evaluated. Assessment & Plan - Diagnosis (1) Renal failure (ARF), acute on chronic Qualifiers: Acute renal failure type: unspecified Chronic kidney disease stage: stage 3 (moderate) Qualified Code(s): N17.9 - Acute kidney failure, unspecified; N18.3 - Chronic kidney disease, stage 3 (moderate); N18.3 - Chronic kidney disease, stage 3 (moderate) Is this a current diagnosis for this admission?: Yes Plan: showing some improvement, continue with fluids. At this point if a beta adri is needed to control the heart rate I recommend reducing carvedilol to 3.125mg bid. 6.25mg bid was causing for too low of blood pressures (2) Seizure Is this a current diagnosis for this admission?: Yes Plan: per Dr. Moncada (3) Chronic a-fib Is this a current diagnosis for this admission?: Yes Plan: Per cardiology (4) Hypertension Qualifiers: Hypertension type: essential hypertension Qualified Code(s): I10 - Essential (primary) hypertension Is this a current diagnosis for this admission?: Yes Plan: stable off medication (5) Congestive heart failure Qualifiers: Heart failure type: systolic Heart failure chronicity: chronic Qualified Code(s): I50.22 - Chronic systolic (congestive) heart failure Is this a current diagnosis for this admission?: Yes Plan: stable (6) Coronary artery disease Qualifiers: Coronary Disease-Associated Artery/Lesion type: unspecified vessel or lesion type Is this a current diagnosis for this admission?: Yes Plan: per cardiology - Notes Notes: patients case was reviewed with Dr. Wagner
[2017-12-18] MEDS: WARFARIN SODIUM 3 MG TABLET PO SCH (18:17)
[2017-12-18] MEDS: TRAZODONE HCL 50 MG TABLET PO SCH (21:17)
[2017-12-19] MEDS: NORMAL SALINE 1000 ML 1,000 ML IV PRN (01:39)
[2017-12-19] MEDS: ACETAMINOPHEN 325 MG TABLET PO PRN (04:36)
[2017-12-19] MEDS: LANSOPRAZOLE 15 MG TAB.RAP.DR PO SCH ×2 (05:35→17:37)
[2017-12-19 05:44] LABS: INTERNATIONAL RATION (INR) 1.67; PROTHROMBIN TIME 20.5 SEC (11.4-15.4)
[2017-12-19 05:47] LABS: ABSOLUTE BASOPHILS # (AUTO) 0.1 10^3/uL (0.0-0.2); ABSOLUTE EOSINOPHILS # (AUTO) 0.5 10^3/uL (0.0-0.6); ABSOLUTE LYMPHOCYTES (AUTO) 2.2 10^3/uL (0.5-4.7); ABSOLUTE MONOCYTES (AUTO) 0.5 10^3/uL (0.1-1.4); BASOPHILS % (AUTO) 0.9 % (0-2); EOSINOPHILS % (AUTO) 7.6 % (0-6); HEMATOCRIT 27.7 % (36.0-47.0); LYMPHOCYTES % (AUTO) 35.6 % (13-45); MEAN CORPUSCULAR HEMOGLOBIN 23.8 pg (27.0-33.4); MEAN CORPUSCULAR HGB CONC 32.3 g/dL (32.0-36.0); MEAN CORPUSCULAR VOLUME 74 fl (80-97); MONOCYTES % (AUTO) 7.9 % (3-13); PLATELET COUNT 251 10^3/uL (150-450); RED BLOOD COUNT 3.77 10^6/uL (3.72-5.28); RED CELL DISTRIBUTION WIDTH 23.9 % (11.5-14.0); TOTAL CELLS COUNTED % (AUTO) 100 %; WHITE BLOOD COUNT 6.2 10^3/uL (4.0-10.5)
[2017-12-19 06:02] LABS: ANION GAP 13 (5-19); BLOOD UREA NITROGEN 57 mg/dL (7-20); CALCIUM 9.1 mg/dL (8.4-10.2); CARBON DIOXIDE 30 mmol/L (22-30); CHLORIDE 102 mmol/L (98-107); GLUCOSE 82 mg/dL (75-110); POTASSIUM 4.5 mmol/L (3.6-5.0); SODIUM 144.8 mmol/L (137-145)
[2017-12-19 06:10] LABS: ACANTHOCYTES SLIGHT; ANISOCYTOSIS 3+; BURR CELLS SLIGHT; OVALOCYTES 1+; PLATELET COMMENT ADEQUATE; POIKILOCYTOSIS 1+
[2017-12-19] MEDS: ASPIRIN 81 MG TABLET, ENT COATED PO SCH (09:39)
[2017-12-19] MEDS: LEVETIRACETAM 500 MG TABLET PO SCH ×2 (09:39→21:36)
--- NOTE | 2017-12-19 12:04 | PDOC PROGRESS REPORT ---
Subjective Progress Note for:: 12/19/17 Subjective:: Patient seems to be doing better. Renal functions showing improvement. Pt is denying any chest arm or neck discomfort. Patient denying any PND, orthopnea. Patient denied any sustained palpitations, dizziness, syncope, near syncope. Patient denying any fever chills. Patient denying any other significant discomfort. Currently receiving IV fluids. Patient is maintaining sinus rhythm. Review of systems: Rest review of systems negative. Medications: Medications have been reviewed. Reason For Visit: ARF Physical Exam Vital Signs: Temp Pulse Resp BP Pulse Ox 98.1 F 74 16 107/61 100 12/19/17 07:53 12/19/17 07:53 12/19/17 07:53 12/19/17 07:53 12/19/17 07:53 Intake & Output 12/18/17 12/19/17 12/20/17 06:59 06:59 06:59 Intake Total 1607 2561 Output Total 1168 580 Balance 439 1981 Weight 72.3 kg 73.7 kg Exam: GENERAL: well-nourished and in no acute distress. Alert and oriented x3 HEAD: Atraumatic, normocephalic. EYES: Pupils equal round and reactive to light, extraocular movements intact, sclera anicteric, conjunctiva are normal. ENT: TMs normal, nares patent, oropharynx clear without exudates. Moist mucous membranes. No oral ulcerations or bleeding gums noted NECK: supple without lymphadenopathy. Trachea is central. No cervical or axillary lymphadenopathy noted. Carotids are 2+, JVD WNL LUNGS: Respiration seems nonlabored, no significant accessory muscle action noted. Breath sounds clear to auscultation bilaterally and equal noted. No wheezes rales or rhonchi noted. No significant dullness noted on percussion. CHEST: Palpation of the chest wall shows no significant chest wall tenderness. HEART: [place], No PSH, 1/6 JOVON aortic area, 1/6 dill systolic murmur mitral area, no rubs, no gallops. ABDOMEN: Soft, no significant tenderness appreciated, normoactive bowel sounds. No guarding, no rebound. No rigidity noted . No masses appreciated. EXTREMITIES: Pedal pulses are 1-2+, no calf tenderness noted. No clubbing or cyanosis. 1+ pedal edema noted NEUROLOGICAL: Focused neurological exam showed no significant neurologic deficit. Normal speech, no focal weakness appreciated. PSYCH: Normal mood, normal affect. Judgment and insight within normal limits. SKIN: No significant ecchymosis, skin is noted to be warm. MUSCULOSKELETAL EXAM: No significant acute joint swelling noted. Results Laboratory Results: 12/19/17 04:49 12/19/17 04:49 12/19/17 12/19/17 04:49 04:49 WBC 6.2 RBC 3.77 Hgb 9.0 L Hct 27.7 L MCV 74 L MCH 23.8 L MCHC 32.3 RDW 23.9 H Plt Count 251 Seg Neutrophils % 48.0 Lymphocytes % 35.6 Monocytes % 7.9 Eosinophils % 7.6 H Basophils % 0.9 Absolute Neutrophils 3.0 Absolute Lymphocytes 2.2 Absolute Monocytes 0.5 Absolute Eosinophils 0.5 Absolute Basophils 0.1 Sodium 144.8 Potassium 4.5 Chloride 102 Carbon Dioxide 30 Anion Gap 13 BUN 57 H Creatinine 1.55 H Est GFR ( Amer) 40 L Est GFR (Non-Af Amer) 33 L Glucose 82 Calcium 9.1 Magnesium 1.9 12/16/17 12/16/17 12/16/17 07:03 07:03 12:44 Creatine Kinase 48 46 CK-MB (CK-2) 0.78 Troponin I 0.053 NT-Pro-B Natriuret Pep 12/16/17 12/16/17 12/16/17 12:44 18:30 18:30 Creatine Kinase 48 CK-MB (CK-2) 0.69 0.69 Troponin I 0.046 0.045 NT-Pro-B Natriuret Pep 12/17/17 04:43 Creatine Kinase CK-MB (CK-2) Troponin I NT-Pro-B Natriuret Pep 2580 H EKG Comments: Showed sinus rhythm, ventricular paced beats versus left bundle branch block Impressions: Chest X-Ray 12/15/17 22:24 IMPRESSION: Patchy airspace opacities in the left lung base, possible small effusion. Head CT 12/15/17 22:24 IMPRESSION: 1. No acute intracranial abnormality by CT criteria. This exam was performed according to our departmental dose-optimization program, which includes automated exposure control, adjustment of the mA and/or kV according to patient size and/or use of iterative reconstruction technique. Abdomen/Pelvis CT 12/16/17 00:00 IMPRESSION: 1. No acute or suspicious abdominopelvic abnormality. 2. Cardiomegaly, cholelithiasis, diverticulosis. Renal Ultrasound 12/16/17 00:00 IMPRESSION: The kidneys are small but otherwise normal. The bladder was not able be evaluated. Assessment & Plan - Diagnosis (1) Renal failure (ARF), acute on chronic Qualifiers: Acute renal failure type: unspecified Chronic kidney disease stage: stage 3 (moderate) Qualified Code(s): N17.9 - Acute kidney failure, unspecified; N18.3 - Chronic kidney disease, stage 3 (moderate); N18.3 - Chronic kidney disease, stage 3 (moderate) Is this a current diagnosis for this admission?: Yes (2) Congestive heart failure Qualifiers: Heart failure type: systolic Heart failure chronicity: chronic Qualified Code(s): I50.22 - Chronic systolic (congestive) heart failure Is this a current diagnosis for this admission?: Yes (3) Coronary artery disease Qualifiers: Coronary Disease-Associated Artery/Lesion type: unspecified vessel or lesion type Is this a current diagnosis for this admission?: Yes (4) Dementia Qualifiers: Dementia type: unspecified type Dementia behavioral disturbance: with behavioral disturbance Qualified Code(s): F03.91 - Unspecified dementia with behavioral disturbance Is this a current diagnosis for this admission?: Yes (5) History of implantable cardioverter-defibrillator (ICD) placement Is this a current diagnosis for this admission?: Yes (6) Hypertension Qualifiers: Hypertension type: essential hypertension Qualified Code(s): I10 - Essential (primary) hypertension Is this a current diagnosis for this admission?: Yes (7) Paroxysmal atrial fibrillation Is this a current diagnosis for this admission?: Yes - Notes Notes: Acute renal failure: Continue slow hydration with careful watch on fluid retention and CHF. So far no signs of fluid overload. May consider checking BNP on periodic basis and chest x-ray on periodic basis. CHF: Currently still compensated. Watch closely for fluid overload. CAD: Clinically stable without any angina or angina equivalent symptom. Dementia: Currently is stable. Continue current medications. History of defibrillator placement: Currently without any recent discharges. Seems to be functioning normally based on telemetry strips reviewed. Hypertension: Blood pressure is still bit on the low side. Once blood pressure improves, recommend reinstitution of beta-adri and angiotensin receptor adri therapy. May consider entresto therapy. Paroxysmal atrial fibrillation: Patient maintaining sinus rhythm. Currently on anticoagulation with Coumadin. - Time Time with patient: 15-25 minutes - CODE STATUS was discussed, patient remains full code. Surrogate decision-maker unchanged. Multiple medical problems were addressed. More than 50% of the time spent coordinating care, discussing management plans with involved caregivers. Management plans discussed with involved personnels. Medical decision making was of moderate to high complexity , patient's has multiple comorbidities. Medications reviewed and adjusted accordingly: Yes
--- NOTE | 2017-12-19 14:58 | PDOC PROGRESS REPORT ---
Subjective Progress Note for:: 12/19/17 Subjective:: No chest pain or difficulty with breathing. No fever or chills. No nausea, vomiting, or abdominal pain. Reason For Visit: ARF Physical Exam Vital Signs: Temp Pulse Resp BP Pulse Ox 97.4 F 76 16 110/69 100 12/19/17 12:13 12/19/17 12:13 12/19/17 12:13 12/19/17 12:13 12/19/17 12:13 Intake & Output 12/18/17 12/19/17 12/20/17 06:59 06:59 06:59 Intake Total 1607 2561 Output Total 1168 580 Balance 439 1981 Weight 72.3 kg 73.7 kg General appearance: PRESENT: no acute distress, well-developed, well-nourished Head exam: PRESENT: atraumatic, normocephalic Respiratory exam: PRESENT: clear to auscultation meghna Cardiovascular exam: PRESENT: RRR. ABSENT: diastolic murmur, rubs, systolic murmur Vascular exam: PRESENT: normal capillary refill. ABSENT: pallor GI/Abdominal exam: PRESENT: normal bowel sounds, soft. ABSENT: tenderness Extremities exam: PRESENT: pedal edema - trace Neurological exam: PRESENT: alert, awake, oriented to person, oriented to place , oriented to time, oriented to situation, CN II-XII grossly intact. ABSENT: motor sensory deficit Psychiatric exam: PRESENT: appropriate affect, normal mood. ABSENT: homicidal ideation, suicidal ideation Skin exam: PRESENT: dry, warm Results Laboratory Results: 12/19/17 04:49 12/19/17 04:49 12/19/17 12/19/17 04:49 04:49 WBC 6.2 RBC 3.77 Hgb 9.0 L Hct 27.7 L MCV 74 L MCH 23.8 L MCHC 32.3 RDW 23.9 H Plt Count 251 Seg Neutrophils % 48.0 Lymphocytes % 35.6 Monocytes % 7.9 Eosinophils % 7.6 H Basophils % 0.9 Absolute Neutrophils 3.0 Absolute Lymphocytes 2.2 Absolute Monocytes 0.5 Absolute Eosinophils 0.5 Absolute Basophils 0.1 Sodium 144.8 Potassium 4.5 Chloride 102 Carbon Dioxide 30 Anion Gap 13 BUN 57 H Creatinine 1.55 H Est GFR ( Amer) 40 L Est GFR (Non-Af Amer) 33 L Glucose 82 Calcium 9.1 Magnesium 1.9 12/16/17 12/16/17 12/16/17 07:03 07:03 12:44 Creatine Kinase 48 46 CK-MB (CK-2) 0.78 Troponin I 0.053 NT-Pro-B Natriuret Pep 12/16/17 12/16/17 12/16/17 12:44 18:30 18:30 Creatine Kinase 48 CK-MB (CK-2) 0.69 0.69 Troponin I 0.046 0.045 NT-Pro-B Natriuret Pep 12/17/17 04:43 Creatine Kinase CK-MB (CK-2) Troponin I NT-Pro-B Natriuret Pep 2580 H Impressions: Chest X-Ray 12/15/17 22:24 IMPRESSION: Patchy airspace opacities in the left lung base, possible small effusion. Head CT 12/15/17 22:24 IMPRESSION: 1. No acute intracranial abnormality by CT criteria. This exam was performed according to our departmental dose-optimization program, which includes automated exposure control, adjustment of the mA and/or kV according to patient size and/or use of iterative reconstruction technique. Abdomen/Pelvis CT 12/16/17 00:00 IMPRESSION: 1. No acute or suspicious abdominopelvic abnormality. 2. Cardiomegaly, cholelithiasis, diverticulosis. Renal Ultrasound 12/16/17 00:00 IMPRESSION: The kidneys are small but otherwise normal. The bladder was not able be evaluated. Assessment & Plan - Diagnosis (1) Renal failure (ARF), acute on chronic Qualifiers: Acute renal failure type: unspecified Chronic kidney disease stage: stage 3 (moderate) Qualified Code(s): N17.9 - Acute kidney failure, unspecified; N18.3 - Chronic kidney disease, stage 3 (moderate); N18.3 - Chronic kidney disease, stage 3 (moderate) Is this a current diagnosis for this admission?: Yes Plan: Improving indices. Continue current medication management. See covering attending physician orders. (2) Hypertension Qualifiers: Hypertension type: essential hypertension Qualified Code(s): I10 - Essential (primary) hypertension Is this a current diagnosis for this admission?: Yes Plan: Continue current medication management. See covering attending physician orders. (3) Paroxysmal atrial fibrillation Is this a current diagnosis for this admission?: Yes Plan: Continue current medication management. See covering attending physician orders. (4) Seizure Is this a current diagnosis for this admission?: Yes Plan: Continue current medication management. See covering attending physician orders. - Time Time Spent with patient: 25-34 minutes Medications reviewed and adjusted accordingly: Yes Anticipated discharge: Home with Homehealth Within: Other - Inpatient Certification Based on my medical assessment, after consideration of the patient's comorbidities, presenting symptoms, or acuity I expect that the services needed warrant INPATIENT care.: Yes I certify that my determination is in accordance with my understanding of Medicare's requirements for reasonable and necessary INPATIENT services [42 CFR 412.3e].: Yes Medical Necessity: Need Close Monitoring Due to Risk of Patient Decompensation, Need For IV Fluids, Need For Continuous Telemetry Monitoring, Risk of Complication if Not Cared For in Hospital Post Hospital Care: D/C [employer] Documentation - Plan Summary Plan Summary: See covering attending physician orders.
[2017-12-19] MEDS: WARFARIN SODIUM 3 MG TABLET PO SCH (17:37)
[2017-12-19] MEDS: TRAZODONE HCL 50 MG TABLET PO SCH (21:36)
[2017-12-20] MEDS: NORMAL SALINE 1000 ML 1,000 ML IV PRN (01:57)
[2017-12-20] MEDS: ACETAMINOPHEN 325 MG TABLET PO PRN ×2 (02:20→16:34)
[2017-12-20 04:47] LABS: ABSOLUTE RETICS # 0.034 10^6/uL (0.028-0.122); RETICULOCYTE COUNT (AUTO) 0.97 % (0.66-2.85)
[2017-12-20 05:03] LABS: IRON(TIBC) 16.2 ug/dL (37-170)
[2017-12-20 06:10] LABS: FOLATE 7.17 ng/mL (>2.76)
[2017-12-20] MEDS: LANSOPRAZOLE 15 MG TAB.RAP.DR PO SCH ×2 (06:12→16:34)
[2017-12-20] MEDS: ASPIRIN 81 MG TABLET, ENT COATED PO SCH (09:32)
[2017-12-20] MEDS: LEVETIRACETAM 500 MG TABLET PO SCH ×2 (09:32→21:15)
--- NOTE | 2017-12-20 10:29 | EKG REPORT ---
SEVERITY:- ABNORMAL ECG - SINUS RHYTHM NONSPECIFIC INTRAVENTRICULAR CONDUCTION DELAY LATERAL INFARCT, AGE INDETERMINATE CONSIDER ANTEROSEPTAL INFARCT : Confirmed by: Edis Moody 20-Dec-2017 10:28:46
--- NOTE | 2017-12-20 12:48 | PDOC PROGRESS REPORT ---
Subjective Progress Note for:: 12/20/17 Subjective:: Patient seems to be doing better. Renal functions has improved.. Pt is denying any chest arm or neck discomfort. Patient denying any PND, orthopnea. Patient denied any sustained palpitations, dizziness, syncope, near syncope. Patient denying any fever chills. Patient denying any other significant discomfort. Patient laying in bed comfortable. Patient is maintaining sinus rhythm. Review of systems: Rest review of systems negative. Medications: Medications have been reviewed. Reason For Visit: ARF Physical Exam Vital Signs: Temp Pulse Resp BP Pulse Ox 98.1 F 91 16 118/76 100 12/20/17 11:35 12/20/17 11:35 12/20/17 11:35 12/20/17 11:35 12/20/17 11:35 Intake & Output 12/19/17 12/20/17 12/21/17 06:59 06:59 06:59 Intake Total 2561 2339 Output Total 580 Balance 1981 2339 Weight 73.7 kg 72.3 kg Exam: GENERAL: well-nourished and in no acute distress. Alert and oriented x 2 HEAD: Atraumatic, normocephalic. EYES: Pupils equal round and reactive to light, extraocular movements intact, sclera anicteric, conjunctiva are normal. ENT: TMs normal, nares patent, oropharynx clear without exudates. Moist mucous membranes. No oral ulcerations or bleeding gums noted NECK: supple without lymphadenopathy. Trachea is central. No cervical or axillary lymphadenopathy noted. Carotids are 2+, JVD WNL LUNGS: Respiration seems nonlabored, no significant accessory muscle action noted. Breath sounds clear to auscultation bilaterally and equal noted. No wheezes rales or rhonchi noted. No significant dullness noted on percussion. CHEST: Palpation of the chest wall shows no significant chest wall tenderness. HEART: [employer], No PSH, 1/6 JOVON aortic area, 1/6 dill systolic murmur mitral area, no rubs, no gallops. ABDOMEN: Soft, no significant tenderness appreciated, normoactive bowel sounds. No guarding, no rebound. No rigidity noted . No masses appreciated. EXTREMITIES: Pedal pulses are 1-2+, no calf tenderness noted. No clubbing or cyanosis. negative pedal edema noted NEUROLOGICAL: Focused neurological exam showed no significant neurologic deficit. Normal speech, no focal weakness appreciated. PSYCH: Normal mood, normal affect. Judgment and insight not checked SKIN: No significant ecchymosis, skin is noted to be warm. MUSCULOSKELETAL EXAM: No significant acute joint swelling noted. Results Laboratory Results: 12/19/17 04:49 12/19/17 04:49 12/20/17 12/20/17 03:55 03:55 Retic Count (auto) 0.97 Absolute Retic 0.034 Iron 16.2 L TIBC 314 % Saturation 5 Ferritin 17.10 Vitamin B12 448.0 Folate 7.17 12/16/17 12/16/17 12/16/17 07:03 07:03 12:44 Creatine Kinase 48 46 CK-MB (CK-2) 0.78 Troponin I 0.053 NT-Pro-B Natriuret Pep 12/16/17 12/16/17 12/16/17 12:44 18:30 18:30 Creatine Kinase 48 CK-MB (CK-2) 0.69 0.69 Troponin I 0.046 0.045 NT-Pro-B Natriuret Pep 12/17/17 04:43 Creatine Kinase CK-MB (CK-2) Troponin I NT-Pro-B Natriuret Pep 2580 H EKG Comments: Telemetry shows sinus rhythm. Twelve-lead EKG reviewed showed sinus rhythm with left bundle branch block pattern. Impressions: Chest X-Ray 12/15/17 22:24 IMPRESSION: Patchy airspace opacities in the left lung base, possible small effusion. Head CT 12/15/17 22:24 IMPRESSION: 1. No acute intracranial abnormality by CT criteria. This exam was performed according to our departmental dose-optimization program, which includes automated exposure control, adjustment of the mA and/or kV according to patient size and/or use of iterative reconstruction technique. Abdomen/Pelvis CT 12/16/17 00:00 IMPRESSION: 1. No acute or suspicious abdominopelvic abnormality. 2. Cardiomegaly, cholelithiasis, diverticulosis. Renal Ultrasound 12/16/17 00:00 IMPRESSION: The kidneys are small but otherwise normal. The bladder was not able be evaluated. Assessment & Plan - Diagnosis (1) Renal failure (ARF), acute on chronic Qualifiers: Acute renal failure type: unspecified Chronic kidney disease stage: stage 3 (moderate) Qualified Code(s): N17.9 - Acute kidney failure, unspecified; N18.3 - Chronic kidney disease, stage 3 (moderate); N18.3 - Chronic kidney disease, stage 3 (moderate) Is this a current diagnosis for this admission?: Yes (2) Congestive heart failure Qualifiers: Heart failure type: systolic Heart failure chronicity: chronic Qualified Code(s): I50.22 - Chronic systolic (congestive) heart failure Is this a current diagnosis for this admission?: Yes (3) Coronary artery disease Qualifiers: Coronary Disease-Associated Artery/Lesion type: unspecified vessel or lesion type Is this a current diagnosis for this admission?: Yes (4) History of implantable cardioverter-defibrillator (ICD) placement Is this a current diagnosis for this admission?: Yes (5) Hypertension Qualifiers: Hypertension type: essential hypertension Qualified Code(s): I10 - Essential (primary) hypertension Is this a current diagnosis for this admission?: Yes (6) Paroxysmal atrial fibrillation Is this a current diagnosis for this admission?: Yes - Notes Notes: Acute renal failure: Continue slow hydration with careful watch on fluid retention and CHF. So far no signs of fluid overload. May consider checking BNP on periodic basis and chest x-ray on periodic basis. Will order a BNP and a chest x-ray for tomorrow morning. CHF: Currently still compensated. Watch closely for fluid overload. IV fluids currently at 40 cc an hour. CAD: Clinically stable without any angina or angina equivalent symptom. Dementia: Currently is stable. Continue current medications. History of defibrillator placement: Currently without any recent discharges. Seems to be functioning normally based on telemetry strips reviewed. Hypertension: Blood pressure is still bit on the low side. Once blood pressure improves, recommend reinstitution of beta-adri and angiotensin receptor adri therapy. May consider entresto therapy. Paroxysmal atrial fibrillation: Patient maintaining sinus rhythm. Currently on anticoagulation with Coumadin. - Time Time with patient: Greater than 35 minutes - CODE STATUS was discussed, patient remains full code. Surrogate decision-maker unchanged. Multiple medical problems were addressed. More than 50% of the time spent coordinating care, discussing management plans with involved caregivers. Management plans discussed with involved personnels. Medical decision making was of moderate to high complexity, patient's has multiple comorbidities. Medications reviewed and adjusted accordingly: Yes
--- NOTE | 2017-12-20 13:02 | PDOC PROGRESS REPORT ---
Subjective Progress Note for:: 12/20/17 Subjective:: Patient denied any chest pain or difficulty with breathing. No fever or chills. No nausea, vomiting, or abdominal pain. No constipation. Reason For Visit: ARF Physical Exam Vital Signs: Temp Pulse Resp BP Pulse Ox 98.1 F 91 16 118/76 100 12/20/17 11:35 12/20/17 11:35 12/20/17 11:35 12/20/17 11:35 12/20/17 11:35 Intake & Output 12/19/17 12/20/17 12/21/17 06:59 06:59 06:59 Intake Total 2561 2339 Output Total 580 Balance 1981 2339 Weight 73.7 kg 72.3 kg Physical Exam: General appearance: PRESENT: no acute distress, well-developed, well-nourished Head exam: PRESENT: atraumatic, normocephalic Respiratory exam: PRESENT: clear to auscultation meghna Cardiovascular exam: PRESENT: RRR. ABSENT: diastolic murmur, rubs, systolic murmur Vascular exam: PRESENT: normal capillary refill. ABSENT: pallor GI/Abdominal exam: PRESENT: normal bowel sounds, soft. ABSENT: tenderness Extremities exam: PRESENT: pedal edema - trace Neurological exam: PRESENT: alert, awake, oriented to person, oriented to place , oriented to time, oriented to situation, CN II-XII grossly intact. ABSENT: motor sensory deficit Psychiatric exam: PRESENT: appropriate affect, normal mood. ABSENT: homicidal ideation, suicidal ideation Skin exam: PRESENT: dry, warm Results Laboratory Results: 12/19/17 04:49 12/19/17 04:49 12/20/17 12/20/17 03:55 03:55 Retic Count (auto) 0.97 Absolute Retic 0.034 Iron 16.2 L TIBC 314 % Saturation 5 Ferritin 17.10 Vitamin B12 448.0 Folate 7.17 12/16/17 12/16/17 12/16/17 07:03 07:03 12:44 Creatine Kinase 48 46 CK-MB (CK-2) 0.78 Troponin I 0.053 NT-Pro-B Natriuret Pep 12/16/17 12/16/17 12/16/17 12:44 18:30 18:30 Creatine Kinase 48 CK-MB (CK-2) 0.69 0.69 Troponin I 0.046 0.045 NT-Pro-B Natriuret Pep 12/17/17 04:43 Creatine Kinase CK-MB (CK-2) Troponin I NT-Pro-B Natriuret Pep 2580 H Impressions: Chest X-Ray 12/15/17 22:24 IMPRESSION: Patchy airspace opacities in the left lung base, possible small effusion. Head CT 12/15/17 22:24 IMPRESSION: 1. No acute intracranial abnormality by CT criteria. This exam was performed according to our departmental dose-optimization program, which includes automated exposure control, adjustment of the mA and/or kV according to patient size and/or use of iterative reconstruction technique. Abdomen/Pelvis CT 12/16/17 00:00 IMPRESSION: 1. No acute or suspicious abdominopelvic abnormality. 2. Cardiomegaly, cholelithiasis, diverticulosis. Renal Ultrasound 12/16/17 00:00 IMPRESSION: The kidneys are small but otherwise normal. The bladder was not able be evaluated. Assessment & Plan - Diagnosis (1) Renal failure (ARF), acute on chronic Qualifiers: Acute renal failure type: unspecified Chronic kidney disease stage: stage 3 (moderate) Qualified Code(s): N17.9 - Acute kidney failure, unspecified; N18.3 - Chronic kidney disease, stage 3 (moderate); N18.3 - Chronic kidney disease, stage 3 (moderate) Is this a current diagnosis for this admission?: Yes (2) Hypertension Qualifiers: Hypertension type: essential hypertension Qualified Code(s): I10 - Essential (primary) hypertension Is this a current diagnosis for this admission?: Yes (3) Paroxysmal atrial fibrillation Is this a current diagnosis for this admission?: Yes (4) Seizure Is this a current diagnosis for this admission?: Yes (5) Iron deficiency anemia Qualifiers: Iron deficiency anemia type: unspecified iron deficiency Qualified Code(s) : D50.9 - Iron deficiency anemia, unspecified Is this a current diagnosis for this admission?: Yes Plan: See covering attending physician orders. - Time Time Spent with patient: 25-34 minutes Medications reviewed and adjusted accordingly: Yes Anticipated discharge: Home with Homehealth Within: Other - Inpatient Certification Based on my medical assessment, after consideration of the patient's comorbidities, presenting symptoms, or acuity I expect that the services needed warrant INPATIENT care.: Yes I certify that my determination is in accordance with my understanding of Medicare's requirements for reasonable and necessary INPATIENT services [42 CFR 412.3e].: Yes Medical Necessity: Need Close Monitoring Due to Risk of Patient Decompensation, Need For IV Fluids, Need For Continuous Telemetry Monitoring, Risk of Complication if Not Cared For in Hospital 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
--- NOTE | 2017-12-20 14:40 | RADIOLOGY REPORT (SQ) ---
EXAM DESCRIPTION: CHEST 2 VIEWS COMPLETED DATE/TIME: 12/20/2017 2:26 pm REASON FOR STUDY: followup CHF COMPARISON: 12/15/2017 EXAM PARAMETERS: NUMBER OF VIEWS: two views TECHNIQUE: Digital Frontal and Lateral radiographic views of the chest acquired. RADIATION DOSE: NA LIMITATIONS: none FINDINGS: LUNGS AND PLEURA: No opacities, masses or pneumothorax. Possible trace bilateral pleural effusions. MEDIASTINUM AND HILAR STRUCTURES: No masses or contour abnormalities. HEART AND VASCULAR STRUCTURES: Heart stable in size. No evidence for failure. BONES: No acute findings. HARDWARE: Stable. OTHER: No other significant finding. IMPRESSION: POSSIBLE TRACE BILATERAL PLEURAL EFFUSIONS. NO ADDITIONAL ACUTE FINDINGS TECHNICAL DOCUMENTATION: JOB ID: [id number] [employer]- All Rights Reserved Reading location - IP/workstation name: WILLIAM
[2017-12-20] MEDS: WARFARIN SODIUM 3 MG TABLET PO SCH (17:36)
[2017-12-20] MEDS: TRAZODONE HCL 50 MG TABLET PO SCH (21:15)
[2017-12-21] MEDS: LANSOPRAZOLE 15 MG TAB.RAP.DR PO SCH ×2 (07:04→17:33)
--- NOTE | 2017-12-21 09:17 | PDOC PROGRESS REPORT ---
Subjective Progress Note for:: 12/21/17 Subjective:: Patient is currently doing well Patient's denied any chest pain denied any shortness of the breath Since NT BNP is elevated Reason For Visit: ARF Physical Exam Vital Signs: Temp Pulse Resp BP Pulse Ox 98.4 F 90 16 124/70 100 12/21/17 08:10 12/21/17 08:10 12/21/17 08:10 12/21/17 08:10 12/21/17 08:10 Intake & Output 12/20/17 12/21/17 12/22/17 06:59 06:59 06:59 Intake Total 2339 1957 Balance 2331957 Weight 72.3 kg 74.3 kg General appearance: PRESENT: no acute distress, well-developed, well-nourished Head exam: PRESENT: atraumatic, normocephalic Eye exam: PRESENT: conjunctiva pink, EOMI, PERRLA. ABSENT: scleral icterus Ear exam: PRESENT: normal external ear exam Mouth exam: PRESENT: moist, tongue midline Neck exam: PRESENT: full ROM. ABSENT: carotid bruit, JVD, lymphadenopathy, thyromegaly Respiratory exam: PRESENT: clear to auscultation meghna Cardiovascular exam: PRESENT: RRR. ABSENT: diastolic murmur, rubs, systolic murmur Pulses: PRESENT: normal dorsalis pedis pul, +2 pedal pulses bilateral Vascular exam: PRESENT: normal capillary refill GI/Abdominal exam: PRESENT: normal bowel sounds, soft. ABSENT: distended, guarding, mass, organolmegaly, rebound, tenderness Rectal exam: PRESENT: deferred Extremities exam: ABSENT: pedal edema Musculoskeletal exam: PRESENT: ambulatory Neurological exam: PRESENT: alert, awake, oriented to person, oriented to place. ABSENT: motor sensory deficit Psychiatric exam: PRESENT: appropriate affect, normal mood. ABSENT: homicidal ideation, suicidal ideation Skin exam: PRESENT: dry, intact, warm. ABSENT: cyanosis, rash Results Laboratory Results: 12/19/17 04:49 12/19/17 04:49 12/16/17 12/16/17 12/16/17 07:03 07:03 12:44 Creatine Kinase 48 46 CK-MB (CK-2) 0.78 Troponin I 0.053 NT-Pro-B Natriuret Pep 12/16/17 12/16/17 12/16/17 12:44 18:30 18:30 Creatine Kinase 48 CK-MB (CK-2) 0.69 0.69 Troponin I 0.046 0.045 NT-Pro-B Natriuret Pep 12/17/17 12/20/17 04:43 15:25 Creatine Kinase CK-MB (CK-2) Troponin I NT-Pro-B Natriuret Pep 2580 H 9710 H Impressions: Head CT 12/15/17 22:24 IMPRESSION: 1. No acute intracranial abnormality by CT criteria. This exam was performed according to our departmental dose-optimization program, which includes automated exposure control, adjustment of the mA and/or kV according to patient size and/or use of iterative reconstruction technique. Abdomen/Pelvis CT 12/16/17 00:00 IMPRESSION: 1. No acute or suspicious abdominopelvic abnormality. 2. Cardiomegaly, cholelithiasis, diverticulosis. Renal Ultrasound 12/16/17 00:00 IMPRESSION: The kidneys are small but otherwise normal. The bladder was not able be evaluated. Chest X-Ray 12/20/17 12:48 IMPRESSION: POSSIBLE TRACE BILATERAL PLEURAL EFFUSIONS. NO ADDITIONAL ACUTE FINDINGS Assessment & Plan - Diagnosis (1) Renal failure (ARF), acute on chronic Qualifiers: Acute renal failure type: unspecified Chronic kidney disease stage: stage 3 (moderate) Qualified Code(s): N17.9 - Acute kidney failure, unspecified; N18.3 - Chronic kidney disease, stage 3 (moderate); N18.3 - Chronic kidney disease, stage 3 (moderate) Is this a current diagnosis for this admission?: Yes Plan: Currently on a baseline (2) Seizure Is this a current diagnosis for this admission?: Yes Plan: Switch to the p.o. Keppra (3) Hypertension Qualifiers: Hypertension type: essential hypertension Qualified Code(s): I10 - Essential (primary) hypertension Is this a current diagnosis for this admission?: Yes Plan: Currently all stable (4) Congestive heart failure Qualifiers: Heart failure type: systolic Heart failure chronicity: chronic Qualified Code(s): I50.22 - Chronic systolic (congestive) heart failure Is this a current diagnosis for this admission?: Yes Plan: Start the patient on torsemide low-dose (5) Coronary artery disease Qualifiers: Coronary Disease-Associated Artery/Lesion type: unspecified vessel or lesion type Is this a current diagnosis for this admission?: Yes Plan: We consult the cardiology and repeat the cardiac enzyme (6) Dementia Qualifiers: Dementia type: unspecified type Dementia behavioral disturbance: with behavioral disturbance Qualified Code(s): F03.91 - Unspecified dementia with behavioral disturbance Is this a current diagnosis for this admission?: Yes Plan: Patient's currently also see a neurology (7) History of implantable cardioverter-defibrillator (ICD) placement Is this a current diagnosis for this admission?: Yes Plan: Current CT of the head is negative (8) Vomiting Qualifiers: Vomiting type: unspecified Vomiting Intractability: non-intractable Nausea presence: with nausea Qualified Code(s): R11.2 - Nausea with vomiting, unspecified Is this a current diagnosis for this admission?: Yes (9) Chronic a-fib Is this a current diagnosis for this admission?: Yes Plan: Currently in a chronic Coumadin INR is 1.5 (10) Noncompliance Is this a current diagnosis for this admission?: Yes - Time Time Spent with patient: 15-24 minutes Medications reviewed and adjusted accordingly: Yes Anticipated discharge: Home Within: Other - Inpatient Certification Medical Necessity: Need Close Monitoring Due to Risk of Patient Decompensation Post Hospital Care: D/C Revenue 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
[2017-12-21] MEDS: ASPIRIN 81 MG TABLET, ENT COATED PO SCH (09:19)
[2017-12-21] MEDS: LEVETIRACETAM 500 MG TABLET PO SCH ×2 (09:19→21:17)
[2017-12-21] MEDS: NORMAL SALINE 1000 ML 1,000 ML IV PRN (09:20)
[2017-12-21] MEDS: TORSEMIDE 20 MG TABLET PO SCH (10:58)
[2017-12-21] MEDS: ACETAMINOPHEN 325 MG TABLET PO PRN ×2 (12:35→21:19)
--- NOTE | 2017-12-21 14:55 | PDOC PROGRESS REPORT ---
Subjective Progress Note for:: 12/21/17 Subjective:: Patient was sitting on the side of the bed in no acute distress. She told me that she thinks she is ready for discharge. She denies any chest pain, SOB, N/V/ D/C. Reason For Visit: ARF Physical Exam Vital Signs: Temp Pulse Resp BP Pulse Ox 98.1 F 102 H 16 122/70 100 12/21/17 11:59 12/21/17 14:00 12/21/17 11:59 12/21/17 11:59 12/21/17 11:59 Intake & Output 12/20/17 12/21/17 12/22/17 06:59 06:59 06:59 Intake Total 2339 195 Balance 2339 195 Weight 72.3 kg 74.3 kg General appearance: PRESENT: no acute distress, well-developed, well-nourished Mouth exam: PRESENT: moist, neck supple Neck exam: PRESENT: full ROM. ABSENT: JVD Respiratory exam: PRESENT: clear to auscultation meghna. ABSENT: accessory muscle use, crackles, rales, rhonchi, wheezes Cardiovascular exam: PRESENT: irregular rhythm, +S1, +S2. ABSENT: RRR GI/Abdominal exam: PRESENT: soft. ABSENT: ascites, distended, rigid, tenderness Extremities exam: PRESENT: tenderness. ABSENT: pedal edema, +1 edema, +2 edema Musculoskeletal exam: PRESENT: tenderness. ABSENT: normal inspection Neurological exam: PRESENT: alert, awake, oriented to person, oriented to place , oriented to time, oriented to situation Skin exam: PRESENT: dry, intact, warm. ABSENT: cyanosis Results Laboratory Results: 12/19/17 04:49 12/19/17 04:49 12/16/17 12/16/17 12/16/17 07:03 07:03 12:44 Creatine Kinase 48 46 CK-MB (CK-2) 0.78 Troponin I 0.053 NT-Pro-B Natriuret Pep 12/16/17 12/16/17 12/16/17 12:44 18:30 18:30 Creatine Kinase 48 CK-MB (CK-2) 0.69 0.69 Troponin I 0.046 0.045 NT-Pro-B Natriuret Pep 12/17/17 12/20/17 04:43 15:25 Creatine Kinase CK-MB (CK-2) Troponin I NT-Pro-B Natriuret Pep 2580 H 9710 H Impressions: Head CT 12/15/17 22:24 IMPRESSION: 1. No acute intracranial abnormality by CT criteria. This exam was performed according to our departmental dose-optimization program, which includes automated exposure control, adjustment of the mA and/or kV according to patient size and/or use of iterative reconstruction technique. Abdomen/Pelvis CT 12/16/17 00:00 IMPRESSION: 1. No acute or suspicious abdominopelvic abnormality. 2. Cardiomegaly, cholelithiasis, diverticulosis. Renal Ultrasound 12/16/17 00:00 IMPRESSION: The kidneys are small but otherwise normal. The bladder was not able be evaluated. Chest X-Ray 12/20/17 12:48 IMPRESSION: POSSIBLE TRACE BILATERAL PLEURAL EFFUSIONS. NO ADDITIONAL ACUTE FINDINGS Assessment & Plan - Diagnosis (1) Renal failure (ARF), acute on chronic Qualifiers: Acute renal failure type: unspecified Chronic kidney disease stage: stage 3 (moderate) Qualified Code(s): N17.9 - Acute kidney failure, unspecified; N18.3 - Chronic kidney disease, stage 3 (moderate); N18.3 - Chronic kidney disease, stage 3 (moderate) Is this a current diagnosis for this admission?: Yes Plan: looks to be at baseline, from nephrology's standpoint she is stable for discharge. Will have her follow up in 10 to [address] Wagner. Recommend load of 500mg of IV ferraheme before discharge. (2) Seizure Is this a current diagnosis for this admission?: Yes Plan: per Dr. Moncada (3) Chronic a-fib Is this a current diagnosis for this admission?: Yes Plan: Per cardiology (4) Hypertension Qualifiers: Hypertension type: essential hypertension Qualified Code(s): I10 - Essential (primary) hypertension Is this a current diagnosis for this admission?: Yes Plan: stable off antihypertensives (5) Congestive heart failure Qualifiers: Heart failure type: systolic Heart failure chronicity: chronic Qualified Code(s): I50.22 - Chronic systolic (congestive) heart failure Is this a current diagnosis for this admission?: Yes Plan: stable (6) Coronary artery disease Qualifiers: Coronary Disease-Associated Artery/Lesion type: unspecified vessel or lesion type Is this a current diagnosis for this admission?: Yes Plan: per cardiology (7) Iron deficiency anemia Qualifiers: Iron deficiency anemia type: unspecified iron deficiency Qualified Code(s) : D50.9 - Iron deficiency anemia, unspecified Is this a current diagnosis for this admission?: Yes Plan: recommend loading 500mg of IV ferraheme before she is discharged. consent was unable to be obtained from the patient and her medical power of photo finisher was not available. - Notes Notes: case was discussed with Dr. Wagner
[2017-12-21] MEDS: WARFARIN SODIUM 3 MG TABLET PO SCH (17:33)
--- NOTE | 2017-12-21 18:58 | XCELERA REPORT ---
[address] [address] Transthoracic Echocardiogram Report Name: NAYELI MCKEON Age: 72 yrs Gender: Female : 1945 Patient Status: Inpatient Patient Location: [address] [place] [address] Study Date: 12/21/2017 10:17 AM Height: 62 in Weight: 156 lb BSA: 1.7 m2 Procedure: A complete two-dimensional transthoracic echocardiogram was performed (2D, M-mode, spectral and color flow Doppler). The study was technically adequate with some images being suboptimal in quality. Reason For Study: Cardiomyopathy Ordering Physician: EDIS LINDSAY Performed By: Dominga Tomlinson Interpretation Summary Left ventricular systolic function is severely reduced. LV EF is 15-20% Doppler measurements suggest pseudonormalized left ventricular relaxation, which is associated with grade II/IV or mild to moderate diastolic dysfunction There is severe global hypokinesis of the left ventricle. The left ventricle is mildly dilated. There is normal left ventricular wall thickness. The right ventricular systolic function is mild to moderately reduced. The right ventricle is grossly normal size. Borderline right atrial enlargement. Borderline left atrial enlargement. There is no mitral valve stenosis. There is a mild to moderate amount of mitral regurgitation There is a trace amount of aortic regurgitation There is no aortic valve stenosis There is a mild amount of tricuspid regurgitation There is mild to moderate pulmonary hypertension by echo Right ventricular systolic pressure is estimated to be elevated at 40- 50mmHg. There is no pericardial effusion. MMode/2D Measurements & Calculations RVDd: 2.8 cm LVIDd: 5.6 cm FS: 7.1 % Ao root diam: IVSd: 0.84 cm LVIDs: 5.2 cm EDV(Teich): 2.7 cm LVPWd: 0.82 cm 154.2 ml Ao root area: ESV(Teich): 130.1 ml 5.6 cm2 EF(Teich): 15.6 % LA dimension: 3.6 cm LVLd ap4: 9.1 cm SV(MOD-sp4): EDV(MOD-sp4): 44.0 ml 174.0 ml LVLs ap4: 8.3 cm ESV(MOD-sp4): 130.0 ml EF(MOD-sp4): 25.3 % Doppler Measurements & Calculations MV E max felipa: MV P1/2t max felipa: Ao V2 max: LV V1 max P.9 cm/sec 83.4 cm/sec 112.5 cm/sec 4.7 mmHg MV A max felipa: MV P1/2t: 59.1 msec Ao max PG: LV V1 max: 98.2 cm/sec MVA(P1/2t): 3.7 cm2 5.1 mmHg 108.6 cm/sec MV E/A: 0.85 MV dec slope: 413.2 cm/sec2 MV dec time: 0.20 sec PA V2 max: PI end-d felipa: TR max felipa: 72.6 cm/sec 157.5 cm/sec 293.2 cm/sec PA max PG: TR max P.1 mmHg 34.4 mmHg Left Ventricle The left ventricle is mildly dilated. There is normal left ventricular wall thickness. Left ventricular systolic function is severely reduced. The Ejection Fraction estimate is <20%. LV EF is 15-20%. Doppler measurements suggest pseudonormalized left ventricular relaxation, which is associated with grade II/IV or mild to moderate diastolic dysfunction. There is severe global hypokinesis of the left ventricle. Right Ventricle The right ventricle is grossly normal size. There is normal right ventricular wall thickness. The right ventricular systolic function is mild to moderately reduced. Atria Borderline right atrial enlargement. Borderline left atrial enlargement. Interarterial septum not well visualized and not well dopplered. Cannot comment on ASD/PFO presence. Mitral Valve The mitral valve leaflets are sclerotic, but show no functional abnormalities. There is no mitral valve stenosis. There is a mild to moderate amount of mitral regurgitation. Aortic Valve The aortic valve is grossly normal. There is no aortic valve stenosis. There is a trace amount of aortic regurgitation. Tricuspid Valve The tricuspid valve is not well visualized, but is grossly normal. There is no tricuspid stenosis. There is a mild amount of tricuspid regurgitation. There is mild to moderate pulmonary hypertension by echo. Right ventricular systolic pressure is estimated to be elevated at 40-50mmHg. Pulmonic Valve The pulmonic valve is not well visualized. Great Vessels The aortic root is not well visualized but is probably normal size. The inferior vena cava was not well visualized. Effusions There is no pericardial effusion. : EDIS LINDSAY > Edis Lindsay
--- NOTE | 2017-12-21 20:10 | PDOC PROGRESS REPORT ---
Subjective Progress Note for:: 12/21/17 Subjective:: Patient seems to be doing better. Renal functions has improved.. Pt is denying any chest arm or neck discomfort. Patient denying any PND, orthopnea. Patient denied any sustained palpitations, dizziness, syncope, near syncope. Patient denying any fever chills. Patient denying any other significant discomfort. Patient laying in bed comfortable. Patient is maintaining sinus rhythm. Review of systems: Rest review of systems negative. Medications: Medications have been reviewed. Reason For Visit: ARF Physical Exam Vital Signs: Temp Pulse Resp BP Pulse Ox 98.2 F 91 16 105/64 100 12/21/17 15:36 12/21/17 15:36 12/21/17 15:36 12/21/17 15:36 12/21/17 15:36 Intake & Output 12/20/17 12/21/17 12/22/17 06:59 06:59 06:59 Intake Total 2339 1958 1784 Balance 2331957 1784 Weight 72.3 kg 74.3 kg Exam: GENERAL: well-nourished and in no acute distress. Alert and oriented x 2 HEAD: Atraumatic, normocephalic. EYES: Pupils equal round and reactive to light, extraocular movements intact, sclera anicteric, conjunctiva are normal. ENT: TMs normal, nares patent, oropharynx clear without exudates. Moist mucous membranes. No oral ulcerations or bleeding gums noted NECK: supple without lymphadenopathy. Trachea is central. No cervical or axillary lymphadenopathy noted. Carotids are 2+, JVD WNL LUNGS: Respiration seems nonlabored, no significant accessory muscle action noted. Breath sounds clear to auscultation bilaterally and equal noted. No wheezes rales or rhonchi noted. No significant dullness noted on percussion. CHEST: Palpation of the chest wall shows no significant chest wall tenderness. 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 ABDOMEN: Soft, no significant tenderness appreciated, normoactive bowel sounds. No guarding, no rebound. No rigidity noted . No masses appreciated. EXTREMITIES: Pedal pulses are 1-2+, no calf tenderness noted. No clubbing or cyanosis. negative pedal edema noted NEUROLOGICAL: Focused neurological exam showed no significant neurologic deficit. Normal speech, no focal weakness appreciated. PSYCH: Normal mood, normal affect. Judgment and insight not checked SKIN: No significant ecchymosis, skin is noted to be warm. MUSCULOSKELETAL EXAM: No significant acute joint swelling noted. Results Laboratory Results: 12/19/17 04:49 12/19/17 04:49 12/16/17 12/16/17 12/16/17 07:03 07:03 12:44 Creatine Kinase 48 46 CK-MB (CK-2) 0.78 Troponin I 0.053 NT-Pro-B Natriuret Pep 12/16/17 12/16/17 12/16/17 12:44 18:30 18:30 Creatine Kinase 48 CK-MB (CK-2) 0.69 0.69 Troponin I 0.046 0.045 NT-Pro-B Natriuret Pep 12/17/17 12/20/17 04:43 15:25 Creatine Kinase CK-MB (CK-2) Troponin I NT-Pro-B Natriuret Pep 2580 H 9710 H EKG Comments: Shows sinus rhythm with left bundle branch block pattern. Impressions: Head CT 12/15/17 22:24 IMPRESSION: 1. No acute intracranial abnormality by CT criteria. This exam was performed according to our departmental dose-optimization program, which includes automated exposure control, adjustment of the mA and/or kV according to patient size and/or use of iterative reconstruction technique. Abdomen/Pelvis CT 12/16/17 00:00 IMPRESSION: 1. No acute or suspicious abdominopelvic abnormality. 2. Cardiomegaly, cholelithiasis, diverticulosis. Renal Ultrasound 12/16/17 00:00 IMPRESSION: The kidneys are small but otherwise normal. The bladder was not able be evaluated. Chest X-Ray 12/20/17 12:48 IMPRESSION: POSSIBLE TRACE BILATERAL PLEURAL EFFUSIONS. NO ADDITIONAL ACUTE FINDINGS Assessment & Plan - Diagnosis (1) Renal failure (ARF), acute on chronic Qualifiers: Acute renal failure type: unspecified Chronic kidney disease stage: stage 3 (moderate) Qualified Code(s): N17.9 - Acute kidney failure, unspecified; N18.3 - Chronic kidney disease, stage 3 (moderate); N18.3 - Chronic kidney disease, stage 3 (moderate) Is this a current diagnosis for this admission?: Yes (2) Congestive heart failure Qualifiers: Heart failure type: systolic Heart failure chronicity: chronic Qualified Code(s): I50.22 - Chronic systolic (congestive) heart failure Is this a current diagnosis for this admission?: Yes (3) Coronary artery disease Qualifiers: Coronary Disease-Associated Artery/Lesion type: unspecified vessel or lesion type Is this a current diagnosis for this admission?: Yes (4) History of implantable cardioverter-defibrillator (ICD) placement Is this a current diagnosis for this admission?: Yes (5) Hypertension Qualifiers: Hypertension type: essential hypertension Qualified Code(s): I10 - Essential (primary) hypertension Is this a current diagnosis for this admission?: Yes (6) Paroxysmal atrial fibrillation Is this a current diagnosis for this admission?: Yes - Notes Notes: 2D echo reviewed. It shows severely reduced LV EF at 15-20%. Mild to moderate mitral regurgitation. Consider restarting carvedilol therapy. Recommend entresto therapy. Patient may benefit from upgrade to a biventricular defibrillator. Patient does have primary care filtration supervisor as Michael Bishop. Patient may also benefit from a sleep study if she never had one. Agree with now restarting Demadex therapy at 20 mg a day. Discussed with Dr. Moncada. - Time Time with patient: Greater than 35 minutes - CODE STATUS was discussed, patient remains full code. Surrogate decision-maker unchanged. Multiple medical problems were addressed. More than 50% of the time spent coordinating care, discussing management plans with involved caregivers. Management plans discussed with involved personnels. Medical decision making was of moderate to high complexity, patient's has multiple comorbidities. Medications reviewed and adjusted accordingly: Yes
[2017-12-21] MEDS: TRAZODONE HCL 50 MG TABLET PO SCH (21:16)
[2017-12-21] MEDS: SACUBITRIL/VALSARTAN 24 MG/26 MG TABLET PO SCH (21:17)
[2017-12-22] MEDS: ONDANSETRON HCL INJ/PF 4 MG/2 ML SDV IV PRN ×2 (01:23→23:30)
[2017-12-22 05:16] LABS: ABSOLUTE BASOPHILS # (AUTO) 0.1 10^3/uL (0.0-0.2); ABSOLUTE EOSINOPHILS # (AUTO) 0.4 10^3/uL (0.0-0.6); ABSOLUTE LYMPHOCYTES (AUTO) 1.9 10^3/uL (0.5-4.7); ABSOLUTE MONOCYTES (AUTO) 0.5 10^3/uL (0.1-1.4); BASOPHILS % (AUTO) 1.6 % (0-2); EOSINOPHILS % (AUTO) 7.8 % (0-6); HEMATOCRIT 26.4 % (36.0-47.0); HEMOGLOBIN 8.5 g/dL (12.0-15.5); LYMPHOCYTES % (AUTO) 38.7 % (13-45); MEAN CORPUSCULAR HEMOGLOBIN 23.6 pg (27.0-33.4); MEAN CORPUSCULAR HGB CONC 32.1 g/dL (32.0-36.0); MEAN CORPUSCULAR VOLUME 74 fl (80-97); PLATELET COUNT 225 10^3/uL (150-450); RED BLOOD COUNT 3.59 10^6/uL (3.72-5.28); RED CELL DISTRIBUTION WIDTH 23.9 % (11.5-14.0); SEGMENTED NEUTROPHILS % (AUTO) 41.9 % (42-78); TOTAL CELLS COUNTED % (AUTO) 100 %; WHITE BLOOD COUNT 4.9 10^3/uL (4.0-10.5)
[2017-12-22 05:30] LABS: ANION GAP 6 (5-19); BLOOD UREA NITROGEN 34 mg/dL (7-20); CALCIUM 8.9 mg/dL (8.4-10.2); CARBON DIOXIDE 29 mmol/L (22-30); CHLORIDE 104 mmol/L (98-107); GLUCOSE 84 mg/dL (75-110); POTASSIUM 4.3 mmol/L (3.6-5.0); SODIUM 139.2 mmol/L (137-145)
[2017-12-22 05:50] LABS: HYPOCHROMASIA SLIGHT
[2017-12-22 05:51] LABS: ANISOCYTOSIS 4+; OVALOCYTES 1+; PLATELET COMMENT ADEQUATE; POIKILOCYTOSIS 2+; SCHISTOCYTES SLIGHT; TARGET CELLS SLIGHT
[2017-12-22] MEDS: LANSOPRAZOLE 15 MG TAB.RAP.DR PO SCH ×2 (05:51→18:22)
[2017-12-22] MEDS ORDERED: WARFARIN SODIUM 3 MG TABLET PO SCH (08:32)
--- NOTE | 2017-12-22 08:44 | PDOC CONSULTATION ---
Consultation Consult Date: 12/22/17 Consult reason:: Hematology/Oncology consulatation was requested for patient with anemia. History of Present Illness Admission Date/PCP: 12/16/17 00:39 ANDREI SWAIN MD History of Present Illness: NAYELI MCKEON is a 72 year old female who cannot remember why she was admitted to the hospital. She says "Please don't ask me any questions. " Therefore, history has been obtained from medical records. No family is at bedside today. Past Medical History Cardiac Medical History: Reports: Atrial Fibrillation, Congestive Heart Failure , Coronary Artery Disease, Myocardial Infarction, Hyperlipidema, Hypertension Neurological Medical History: Reports: Ischemic CVA Renal/ Medical History: Reports: Chronic Kidney Disease GI Medical History: Reports: Gastroesophageal Reflux Disease Psychiatric Medical History: Reports: Dementia, Depression Past Surgical History Past Surgical History: Reports: Cardiac Catheterization Social History Information Source: [facility] Records Smoking Status: Former Smoker Frequency of Alcohol Use: None - Advance Directive Resuscitation Status: Full Code Family History Family History: Hypertension Parental Family History Reviewed: No - Patient does not remember Children Family History Reviewed: No - Patient does not remember Sibling(s) Family History Reviewed.: No - Patient does not remember Medication/Allergy Home Medications: Albuterol Sulfate [Proair HFA] 1 puff IH Q4HP PRN 12/16/17 Amoxicillin Trihydrate [Amoxil 500 mg Capsule] 1,000 mg PO BID 12/16/17 Aspirin [Ecotrin 81 mg EC Tablet] 81 mg PO DAILY 12/16/17 Bismuth Subsalicylate [Pepto-Bismol 262 mg Chewable Tablet] 524 mg PO QID Carvedilol [Coreg 6.25 mg Tablet] 6.25 mg PO Q12 12/16/17 Cholecalciferol (Vitamin D3) [Vitamin D3] 1,000 unit PO DAILY 12/16/17 Fluticasone/Vilanterol [Breo Ellipta 100-25 Mcg INH] 1 each IH DAILY 12/16/17 Ipratropium/Albuterol Sulfate [Combivent Respimat Inhal [place]] 1 puff PO QID 10/04 Lisinopril [Prinivil 5 mg Tablet] 5 mg PO DAILY 12/16/17 Metolazone [Zaroxolyn 2.5 Mg Tablet] 2.5 mg PO DAILY 12/16/17 Metronidazole [Flagyl 500 mg Tablet] 500 mg PO Q8 12/16/17 Omeprazole 20 mg PO BID 12/16/17 Torsemide [Demadex 20 mg Tablet] 80 mg PO DAILY 12/16/17 Tramadol HCl [Ultram 50 mg Tablet] 50 mg PO HSP PRN 12/16/17 Trazodone HCl [Desyrel 50 mg Tablet] 50 mg PO QHS 12/16/17 Warfarin Sodium [Coumadin 3 mg Tablet] 3 mg PO QPM 12/16/17 Allergies/Adverse Reactions: No Known Allergies Allergy (Verified 08/07/17 08:51) Review of Systems ROS unobtainable: Other - Patient will not answer my questions. Physical Exam Vital Signs: Temp Pulse Resp BP Pulse Ox 98.4 F 80 18 104/49 L 100 12/22/17 03:40 12/22/17 07:00 12/22/17 03:40 12/22/17 03:40 12/22/17 03:40 Intake & Output 12/21/17 12/22/17 12/23/17 06:59 06:59 06:59 Intake Total 1957 2361 Output Total 1200 Balance 1957 1161 Weight 74.3 kg 74.5 kg Exam: [place] nourished, 72 year old female. Although she does not like questions, she is very cooperative with my exam. Head exam: PRESENT: atraumatic Eye exam: PRESENT: PERRLA Mouth exam: PRESENT: moist, tongue midline Neck exam: ABSENT: lymphadenopathy, tenderness Respiratory exam: PRESENT: clear to auscultation meghna, unlabored Cardiovascular exam: PRESENT: irregular rhythm GI/Abdominal exam: PRESENT: normal bowel sounds, soft. ABSENT: tenderness Extremities exam: ABSENT: pedal edema Musculoskeletal exam: ABSENT: deformity Neurological exam: PRESENT: alert, awake - Patient was not visualized ambulating , but moves all 4 extremities with ease. Psychiatric exam: ABSENT: anxious, depressed Focused psych exam: ABSENT: delusional, pressured speech Skin exam: PRESENT: normal color Results Laboratory Results: 12/22/17 04:07 12/22/17 04:07 12/20/17 12/22/17 12/22/17 03:55 04:07 04:07 WBC 4.9 RBC 3.59 L Hgb 8.5 L Hct 26.4 L MCV 74 L MCH 23.6 L MCHC 32.1 RDW 23.9 H Plt Count 225 Seg Neutrophils % 41.9 L Lymphocytes % 38.7 Monocytes % 10.0 Eosinophils % 7.8 H Basophils % 1.6 Absolute Neutrophils 2.0 Absolute Lymphocytes 1.9 Absolute Monocytes 0.5 Absolute Eosinophils 0.4 Absolute Basophils 0.1 Sodium 139.2 Potassium 4.3 Chloride 104 Carbon Dioxide 29 Anion Gap 6 BUN 34 H Creatinine 1.38 H Est GFR ( Amer) 46 L Est GFR (Non-Af Amer) 38 L Glucose 84 Calcium 8.9 Transferrin 204 12/16/17 12/16/17 12/16/17 07:03 07:03 12:44 Creatine Kinase 48 46 CK-MB (CK-2) 0.78 Troponin I 0.053 NT-Pro-B Natriuret Pep 12/16/17 12/16/17 12/16/17 12:44 18:30 18:30 Creatine Kinase 48 CK-MB (CK-2) 0.69 0.69 Troponin I 0.046 0.045 NT-Pro-B Natriuret Pep 12/17/17 12/20/17 04:43 15:25 Creatine Kinase CK-MB (CK-2) Troponin I NT-Pro-B Natriuret Pep 2580 H 9710 H Impressions: Head CT 12/15/17 22:24 IMPRESSION: 1. No acute intracranial abnormality by CT criteria. This exam was performed according to our departmental dose-optimization program, which includes automated exposure control, adjustment of the mA and/or kV according to patient size and/or use of iterative reconstruction technique. Abdomen/Pelvis CT 12/16/17 00:00 IMPRESSION: 1. No acute or suspicious abdominopelvic abnormality. 2. Cardiomegaly, cholelithiasis, diverticulosis. Renal Ultrasound 12/16/17 00:00 IMPRESSION: The kidneys are small but otherwise normal. The bladder was not able be evaluated. Chest X-Ray 12/20/17 12:48 IMPRESSION: POSSIBLE TRACE BILATERAL PLEURAL EFFUSIONS. NO ADDITIONAL ACUTE FINDINGS Assessment & Plan - Diagnosis (1) Chronic a-fib Is this a current diagnosis for this admission?: Yes Plan: On coumadin. Her INR is sub-therapeutic. I would increase coumadin with goal INR 2-3. Await hemoccult testing. Unsure if she has chronic bleeding, but will need to watch for this, in light of the iron deficiency. (2) Iron deficiency anemia Qualifiers: Iron deficiency anemia type: unspecified iron deficiency Qualified Code(s) : D50.9 - Iron deficiency anemia, unspecified Is this a current diagnosis for this admission?: Yes Plan: I agree with IV iron, if patient and family agree. Again, this could be secondary from chronic bleeding, or may be diet related. I would recommend following Ferritin levels as outpatient and repeat IV iron as needed. If hemoccult positive, consider stopping coumadin and arranging GI work-up. (3) Renal failure (ARF), acute on chronic Qualifiers: Acute renal failure type: unspecified Chronic kidney disease stage: stage 3 (moderate) Qualified Code(s): N17.9 - Acute kidney failure, unspecified; N18.3 - Chronic kidney disease, stage 3 (moderate); N18.3 - Chronic kidney disease, stage 3 (moderate) Is this a current diagnosis for this admission?: Yes Plan: This may also be contributing to her anemia. She may be a candidate for procrit , but would need to speak to family about this. I am unsure of her living situation and mobility. She is already followed by renal. They would need to arrange the procrit, if family and patient agree. (4) Dementia Qualifiers: Dementia type: unspecified type Dementia behavioral disturbance: with behavioral disturbance Qualified Code(s): F03.91 - Unspecified dementia with behavioral disturbance Is this a current diagnosis for this admission?: Yes Plan: I was not able to speak with family today, but if code status has not already been addressed, they should be aware of implication of continued FULL CODE status. - Plan Summary Plan Summary: I did discuss this patient's care with Dr. Swain. I will be happy to follow her as outpatient for her anemia and repeat CBC and Ferritin in a few weeks. Thank you for this consultation. Please call if needed.
--- NOTE | 2017-12-22 09:57 | PDOC PROGRESS REPORT ---
Subjective Progress Note for:: 12/22/17 Subjective:: Patient is currently doing well Patient's denied any chest pain denied any shortness of the breath Patient hemoglobin is 8.5 going to receive the IV iron transfusions todayDiscussed with the cardiology and start the patient on torsemide 20 mg and consider to increase to a total twice a day Is an EF is very low patient's currently see a cardiology at [place] and a one chamber defibrillator Reason For Visit: ARF Physical Exam Vital Signs: Temp Pulse Resp BP Pulse Ox 97.9 F 81 16 96/46 L 96 12/22/17 08:41 12/22/17 08:41 12/22/17 08:41 12/22/17 08:41 12/22/17 08:41 Intake & Output 12/21/17 12/22/17 12/23/17 06:59 06:59 06:59 Intake Total 1957 2361 Output Total 1200 Balance 1957 1161 Weight 74.3 kg 74.5 kg General appearance: PRESENT: no acute distress, well-developed, well-nourished Head exam: PRESENT: atraumatic, normocephalic Eye exam: PRESENT: conjunctiva pink, EOMI, PERRLA. ABSENT: scleral icterus Ear exam: PRESENT: normal external ear exam Mouth exam: PRESENT: moist, tongue midline Neck exam: PRESENT: full ROM. ABSENT: carotid bruit, JVD, lymphadenopathy, thyromegaly Respiratory exam: PRESENT: clear to auscultation meghna Cardiovascular exam: PRESENT: RRR. ABSENT: diastolic murmur, rubs, systolic murmur Pulses: PRESENT: normal dorsalis pedis pul, +2 pedal pulses bilateral Vascular exam: PRESENT: normal capillary refill GI/Abdominal exam: PRESENT: normal bowel sounds, soft. ABSENT: distended, guarding, mass, organolmegaly, rebound, tenderness Rectal exam: PRESENT: deferred Extremities exam: ABSENT: pedal edema Musculoskeletal exam: PRESENT: ambulatory Neurological exam: PRESENT: alert, awake, oriented to person, oriented to place , oriented to time, oriented to situation, CN II-XII grossly intact. ABSENT: motor sensory deficit Psychiatric exam: PRESENT: appropriate affect, normal mood. ABSENT: homicidal ideation, suicidal ideation Skin exam: PRESENT: dry, intact, warm. ABSENT: cyanosis, rash Results Laboratory Results: 12/22/17 04:07 12/22/17 04:07 12/20/17 12/22/17 12/22/17 03:55 04:07 04:07 WBC 4.9 RBC 3.59 L Hgb 8.5 L Hct 26.4 L MCV 74 L MCH 23.6 L MCHC 32.1 RDW 23.9 H Plt Count 225 Seg Neutrophils % 41.9 L Lymphocytes % 38.7 Monocytes % 10.0 Eosinophils % 7.8 H Basophils % 1.6 Absolute Neutrophils 2.0 Absolute Lymphocytes 1.9 Absolute Monocytes 0.5 Absolute Eosinophils 0.4 Absolute Basophils 0.1 Sodium 139.2 Potassium 4.3 Chloride 104 Carbon Dioxide 29 Anion Gap 6 BUN 34 H Creatinine 1.38 H Est GFR ( Amer) 46 L Est GFR (Non-Af Amer) 38 L Glucose 84 Calcium 8.9 Transferrin 204 12/16/17 12/16/17 12/16/17 07:03 07:03 12:44 Creatine Kinase 48 46 CK-MB (CK-2) 0.78 Troponin I 0.053 NT-Pro-B Natriuret Pep 12/16/17 12/16/17 12/16/17 12:44 18:30 18:30 Creatine Kinase 48 CK-MB (CK-2) 0.69 0.69 Troponin I 0.046 0.045 NT-Pro-B Natriuret Pep 12/17/17 12/20/17 04:43 15:25 Creatine Kinase CK-MB (CK-2) Troponin I NT-Pro-B Natriuret Pep 2580 H 9710 H Impressions: Head CT 12/15/17 22:24 IMPRESSION: 1. No acute intracranial abnormality by CT criteria. This exam was performed according to our departmental dose-optimization program, which includes automated exposure control, adjustment of the mA and/or kV according to patient size and/or use of iterative reconstruction technique. Abdomen/Pelvis CT 12/16/17 00:00 IMPRESSION: 1. No acute or suspicious abdominopelvic abnormality. 2. Cardiomegaly, cholelithiasis, diverticulosis. Renal Ultrasound 12/16/17 00:00 IMPRESSION: The kidneys are small but otherwise normal. The bladder was not able be evaluated. Chest X-Ray 12/20/17 12:48 IMPRESSION: POSSIBLE TRACE BILATERAL PLEURAL EFFUSIONS. NO ADDITIONAL ACUTE FINDINGS Assessment & Plan - Diagnosis (1) Renal failure (ARF), acute on chronic Qualifiers: Acute renal failure type: unspecified Chronic kidney disease stage: stage 3 (moderate) Qualified Code(s): N17.9 - Acute kidney failure, unspecified; N18.3 - Chronic kidney disease, stage 3 (moderate); N18.3 - Chronic kidney disease, stage 3 (moderate) Is this a current diagnosis for this admission?: Yes Plan: Currently all resolved (2) Seizure Is this a current diagnosis for this admission?: Yes Plan: Switch to the p.o. Keppra (3) Hypertension Qualifiers: Hypertension type: essential hypertension Qualified Code(s): I10 - Essential (primary) hypertension Is this a current diagnosis for this admission?: Yes Plan: Currently all stable (4) Congestive heart failure Qualifiers: Heart failure type: systolic Heart failure chronicity: chronic Qualified Code(s): I50.22 - Chronic systolic (congestive) heart failure Is this a current diagnosis for this admission?: Yes Plan: Continues to torsemide 20 mg p.o. twice a day (5) Coronary artery disease Qualifiers: Coronary Disease-Associated Artery/Lesion type: unspecified vessel or lesion type Is this a current diagnosis for this admission?: Yes Plan: We consult the cardiology and repeat the cardiac enzyme (6) Dementia Qualifiers: Dementia type: unspecified type Dementia behavioral disturbance: with behavioral disturbance Qualified Code(s): F03.91 - Unspecified dementia with behavioral disturbance Is this a current diagnosis for this admission?: Yes Plan: Patient's currently also see a neurology (7) History of implantable cardioverter-defibrillator (ICD) placement Is this a current diagnosis for this admission?: Yes Plan: Current CT of the head is negative (8) Vomiting Qualifiers: Vomiting type: unspecified Vomiting Intractability: non-intractable Nausea presence: with nausea Qualified Code(s): R11.2 - Nausea with vomiting, unspecified Is this a current diagnosis for this admission?: Yes (9) Chronic a-fib Is this a current diagnosis for this admission?: Yes Plan: Currently in a chronic Coumadin INR is 1.5 (10) Noncompliance Is this a current diagnosis for this admission?: Yes Plan: This with the patient's family including the daughter and the sister in the room regarding the patient's current conditions and requires a multiple fall of the doctors and discuss about the sending to the rehab's and the sisters really wants to continues at home and she will talk with all the other family member to continue some more compliance with the medication in the follow-up (11) Iron deficiency anemia Qualifiers: Iron deficiency anemia type: unspecified iron deficiency Qualified Code(s) : D50.9 - Iron deficiency anemia, unspecified Is this a current diagnosis for this admission?: Yes Plan: Get the stool for the guaiac and also iron transfusion - Time Time Spent with patient: 15-24 minutes Medications reviewed and adjusted accordingly: Yes Anticipated discharge: Home with Homehealth Within: within 24 hours - Inpatient Certification Medical Necessity: Need Close Monitoring Due to Risk of Patient Decompensation Post Hospital Care: D/C Materials Tech Documentation - Plan Summary Plan Summary: Continues to current medication
[2017-12-22] MEDS: ASPIRIN 81 MG TABLET, ENT COATED PO SCH (10:02)
[2017-12-22] MEDS: LEVETIRACETAM 500 MG TABLET PO SCH ×2 (10:02→21:16)
[2017-12-22] MEDS: SACUBITRIL/VALSARTAN 24 MG/26 MG TABLET PO SCH ×2 (10:03→21:17)
[2017-12-22] MEDS: ACETAMINOPHEN 325 MG TABLET PO PRN (10:03)
[2017-12-22] MEDS: TORSEMIDE 20 MG TABLET PO SCH (10:03)
[2017-12-22 10:21] LABS: INTERNATIONAL RATION (INR) 2.12; PROTHROMBIN TIME 24.8 SEC (11.4-15.4)
--- NOTE | 2017-12-22 12:02 | PDOC PROGRESS REPORT ---
Subjective Progress Note for:: 12/22/17 Subjective:: Patient was started on entresto yesterday but seems like nurses have not given it because of low blood pressure. Recommend that entresto be given unless blood pressure is less than 90 mm systolic. It may be worthwhile to consider stopping trazodone. Patient seems to be doing better. Renal functions has improved.. Pt is denying any chest arm or neck discomfort. Patient denying any PND, orthopnea. Patient denied any sustained palpitations, dizziness, syncope, near syncope. Patient denying any fever chills. Patient denying any other significant discomfort. Patient laying in bed comfortable. Patient is maintaining sinus rhythm. Review of systems: Rest review of systems negative. Medications: Medications have been reviewed. Reason For Visit: ARF Physical Exam Vital Signs: Temp Pulse Resp BP Pulse Ox 97.9 F 81 16 96/46 L 96 12/22/17 08:41 12/22/17 08:41 12/22/17 08:41 12/22/17 08:41 12/22/17 08:41 Intake & Output 12/21/17 12/22/17 12/23/17 06:59 06:59 06:59 Intake Total 1957 2361 Output Total 1200 Balance 1957 1161 Weight 74.3 kg 74.5 kg Exam: GENERAL: well-nourished and in no acute distress. Alert and oriented x2 HEAD: Atraumatic, normocephalic. EYES: Pupils equal round and reactive to light, extraocular movements intact, sclera anicteric, conjunctiva are normal. ENT: TMs normal, nares patent, oropharynx clear without exudates. Moist mucous membranes. No oral ulcerations or bleeding gums noted NECK: supple without lymphadenopathy. Trachea is central. No cervical or axillary lymphadenopathy noted. Carotids are 2+, JVD WNL LUNGS: Respiration seems nonlabored, no significant accessory muscle action noted. Breath sounds clear to auscultation bilaterally and equal noted. No wheezes rales or rhonchi noted. No significant dullness noted on percussion. CHEST: Palpation of the chest wall shows no significant chest wall tenderness. HEART: [place] [employer], No PSH, 1/6 JOVON aortic area, 1/6 dill systolic murmur mitral area, no rubs, no gallops. ABDOMEN: Soft, no significant tenderness appreciated, normoactive bowel sounds. No guarding, no rebound. No rigidity noted . No masses appreciated. EXTREMITIES: Pedal pulses are 1-2+, no calf tenderness noted. No clubbing or cyanosis. negative pedal edema noted NEUROLOGICAL: Focused neurological exam showed no significant neurologic deficit. Normal speech, no focal weakness appreciated. PSYCH: Normal mood, normal affect. Judgment and insight not checked SKIN: No significant ecchymosis, skin is noted to be warm. MUSCULOSKELETAL EXAM: No significant acute joint swelling noted. Results Laboratory Results: 12/22/17 04:07 12/22/17 04:07 12/20/17 12/22/17 12/22/17 03:55 04:07 04:07 WBC 4.9 RBC 3.59 L Hgb 8.5 L Hct 26.4 L MCV 74 L MCH 23.6 L MCHC 32.1 RDW 23.9 H Plt Count 225 Seg Neutrophils % 41.9 L Lymphocytes % 38.7 Monocytes % 10.0 Eosinophils % 7.8 H Basophils % 1.6 Absolute Neutrophils 2.0 Absolute Lymphocytes 1.9 Absolute Monocytes 0.5 Absolute Eosinophils 0.4 Absolute Basophils 0.1 Sodium 139.2 Potassium 4.3 Chloride 104 Carbon Dioxide 29 Anion Gap 6 BUN 34 H Creatinine 1.38 H Est GFR ( Amer) 46 L Est GFR (Non-Af Amer) 38 L Glucose 84 Calcium 8.9 Transferrin 204 12/16/17 12/16/17 12/16/17 07:03 07:03 12:44 Creatine Kinase 48 46 CK-MB (CK-2) 0.78 Troponin I 0.053 NT-Pro-B Natriuret Pep 12/16/17 12/16/17 12/16/17 12:44 18:30 18:30 Creatine Kinase 48 CK-MB (CK-2) 0.69 0.69 Troponin I 0.046 0.045 NT-Pro-B Natriuret Pep 12/17/17 12/20/17 04:43 15:25 Creatine Kinase CK-MB (CK-2) Troponin I NT-Pro-B Natriuret Pep 2580 H 9710 H EKG Comments: Shows sinus rhythm with left bundle branch block pattern. Impressions: Head CT 12/15/17 22:24 IMPRESSION: 1. No acute intracranial abnormality by CT criteria. This exam was performed according to our departmental dose-optimization program, which includes automated exposure control, adjustment of the mA and/or kV according to patient size and/or use of iterative reconstruction technique. Abdomen/Pelvis CT 12/16/17 00:00 IMPRESSION: 1. No acute or suspicious abdominopelvic abnormality. 2. Cardiomegaly, cholelithiasis, diverticulosis. Renal Ultrasound 12/16/17 00:00 IMPRESSION: The kidneys are small but otherwise normal. The bladder was not able be evaluated. Chest X-Ray 12/20/17 12:48 IMPRESSION: POSSIBLE TRACE BILATERAL PLEURAL EFFUSIONS. NO ADDITIONAL ACUTE FINDINGS Assessment & Plan - Diagnosis (1) Renal failure (ARF), acute on chronic Qualifiers: Acute renal failure type: unspecified Chronic kidney disease stage: stage 3 (moderate) Qualified Code(s): N17.9 - Acute kidney failure, unspecified; N18.3 - Chronic kidney disease, stage 3 (moderate); N18.3 - Chronic kidney disease, stage 3 (moderate) Is this a current diagnosis for this admission?: Yes (2) Congestive heart failure Qualifiers: Heart failure type: systolic Heart failure chronicity: chronic Qualified Code(s): I50.22 - Chronic systolic (congestive) heart failure Is this a current diagnosis for this admission?: Yes (3) Coronary artery disease Qualifiers: Coronary Disease-Associated Artery/Lesion type: unspecified vessel or lesion type Is this a current diagnosis for this admission?: Yes (4) History of implantable cardioverter-defibrillator (ICD) placement Is this a current diagnosis for this admission?: Yes (5) Hypertension Qualifiers: Hypertension type: essential hypertension Qualified Code(s): I10 - Essential (primary) hypertension Is this a current diagnosis for this admission?: Yes (6) Paroxysmal atrial fibrillation Is this a current diagnosis for this admission?: Yes - Notes Notes: Acute renal failure: Improved. So far no signs of fluid overload. Started back patient on entresto at low-dose. Monitor renal functions while on it. First dose not yet given to the patient. CHF: Currently still compensated. Watch closely for fluid overload. Started patient back on torsemide at 20 mg p.o. daily. CAD: Clinically stable without any angina or angina equivalent symptom. Dementia: Currently is stable. Continue current medications. History of defibrillator placement: Currently without any recent discharges. Seems to be functioning normally based on telemetry strips reviewed. Hypertension: Blood pressure is still bit on the low side. But will need to start patient back on entresto and carvedilol therapy. May consider stopping trazodone which may help with the blood pressure. Otherwise add Midodrin to the regimen. Paroxysmal atrial fibrillation: Patient maintaining sinus rhythm. Currently on anticoagulation with Coumadin. - Time Time with patient: Greater than 35 minutes - CODE STATUS was discussed, patient remains full code. Surrogate decision-maker unchanged. Multiple medical problems were addressed. More than 50% of the time spent coordinating care, discussing management plans with involved caregivers. Management plans discussed with involved personnels. Medical decision making was of moderate to high complexity, patient's has multiple comorbidities. Medications reviewed and adjusted accordingly: Yes
[2017-12-22] MEDS ORDERED: DIPHENHYDRAMINE HCL 50 MG/ML VIAL IV PRN (12:36)
[2017-12-22] MEDS ORDERED: FERUMOXYTOL 510 MG in NORMAL SALINE 100 ML IV ONE (14:00)
--- NOTE | 2017-12-22 14:56 | PDOC PROGRESS REPORT ---
Subjective Progress Note for:: 12/22/17 Subjective:: Patient was seen today with her family surrounding her. She is currently eager to get out of the hospital. She denies any chest pain, SOB, blood in her stools. She was seen heme/onc today. She is currently being screened for blood in her stool. Reason For Visit: ARF Physical Exam Vital Signs: Temp Pulse Resp BP Pulse Ox 98.2 F 79 16 90/55 L 99 12/22/17 11:55 12/22/17 11:55 12/22/17 11:55 12/22/17 11:55 12/22/17 11:55 Intake & Output 12/21/17 12/22/17 12/23/17 06:59 06:59 06:59 Intake Total 1957 2361 Output Total 1200 Balance 1957 1161 Weight 74.3 kg 74.5 kg General appearance: PRESENT: no acute distress, well-developed, well-nourished Mouth exam: PRESENT: moist, neck supple Neck exam: PRESENT: full ROM. ABSENT: JVD Respiratory exam: PRESENT: clear to auscultation meghna. ABSENT: accessory muscle use, crackles, rales, rhonchi, wheezes Cardiovascular exam: PRESENT: irregular rhythm, +S1, +S2. ABSENT: RRR GI/Abdominal exam: PRESENT: soft. ABSENT: ascites, distended, rigid, tenderness Extremities exam: PRESENT: tenderness. ABSENT: pedal edema, +1 edema, +2 edema Musculoskeletal exam: PRESENT: tenderness. ABSENT: normal inspection Neurological exam: PRESENT: alert, awake, oriented to person, oriented to place Psychiatric exam: PRESENT: agitated. ABSENT: appropriate affect, normal mood Skin exam: PRESENT: dry, intact, warm. ABSENT: cyanosis Results Laboratory Results: 12/22/17 04:07 12/22/17 04:07 12/20/17 12/22/17 12/22/17 03:55 04:07 04:07 WBC 4.9 RBC 3.59 L Hgb 8.5 L Hct 26.4 L MCV 74 L MCH 23.6 L MCHC 32.1 RDW 23.9 H Plt Count 225 Seg Neutrophils % 41.9 L Lymphocytes % 38.7 Monocytes % 10.0 Eosinophils % 7.8 H Basophils % 1.6 Absolute Neutrophils 2.0 Absolute Lymphocytes 1.9 Absolute Monocytes 0.5 Absolute Eosinophils 0.4 Absolute Basophils 0.1 Sodium 139.2 Potassium 4.3 Chloride 104 Carbon Dioxide 29 Anion Gap 6 BUN 34 H Creatinine 1.38 H Est GFR ( Amer) 46 L Est GFR (Non-Af Amer) 38 L Glucose 84 Calcium 8.9 Transferrin 204 12/16/17 12/16/17 12/16/17 07:03 07:03 12:44 Creatine Kinase 48 46 CK-MB (CK-2) 0.78 Troponin I 0.053 NT-Pro-B Natriuret Pep 12/16/17 12/16/17 12/16/17 12:44 18:30 18:30 Creatine Kinase 48 CK-MB (CK-2) 0.69 0.69 Troponin I 0.046 0.045 NT-Pro-B Natriuret Pep 12/17/17 12/20/17 04:43 15:25 Creatine Kinase CK-MB (CK-2) Troponin I NT-Pro-B Natriuret Pep 2580 H 9710 H Impressions: Head CT 12/15/17 22:24 IMPRESSION: 1. No acute intracranial abnormality by CT criteria. This exam was performed according to our departmental dose-optimization program, which includes automated exposure control, adjustment of the mA and/or kV according to patient size and/or use of iterative reconstruction technique. Abdomen/Pelvis CT 12/16/17 00:00 IMPRESSION: 1. No acute or suspicious abdominopelvic abnormality. 2. Cardiomegaly, cholelithiasis, diverticulosis. Renal Ultrasound 12/16/17 00:00 IMPRESSION: The kidneys are small but otherwise normal. The bladder was not able be evaluated. Chest X-Ray 12/20/17 12:48 IMPRESSION: POSSIBLE TRACE BILATERAL PLEURAL EFFUSIONS. NO ADDITIONAL ACUTE FINDINGS Assessment & Plan - Diagnosis (1) Renal failure (ARF), acute on chronic Qualifiers: Acute renal failure type: unspecified Chronic kidney disease stage: stage 3 (moderate) Qualified Code(s): N17.9 - Acute kidney failure, unspecified; N18.3 - Chronic kidney disease, stage 3 (moderate); N18.3 - Chronic kidney disease, stage 3 (moderate) Is this a current diagnosis for this admission?: Yes Plan: looks to be at baseline, from nephrology's standpoint she is stable. Will have her follow up in 10 [address] Wagner once she is discharged. (2) Seizure Is this a current diagnosis for this admission?: Yes Plan: per Dr. Moncada (3) Chronic a-fib Is this a current diagnosis for this admission?: Yes Plan: Per cardiology (4) Hypertension Qualifiers: Hypertension type: essential hypertension Qualified Code(s): I10 - Essential (primary) hypertension Is this a current diagnosis for this admission?: Yes Plan: stable off antihypertensives (5) Congestive heart failure Qualifiers: Heart failure type: systolic Heart failure chronicity: chronic Qualified Code(s): I50.22 - Chronic systolic (congestive) heart failure Is this a current diagnosis for this admission?: Yes Plan: stable (6) Coronary artery disease Qualifiers: Coronary Disease-Associated Artery/Lesion type: unspecified vessel or lesion type Is this a current diagnosis for this admission?: Yes Plan: per cardiology (7) Iron deficiency anemia Qualifiers: Iron deficiency anemia type: unspecified iron deficiency Qualified Code(s) : D50.9 - Iron deficiency anemia, unspecified Is this a current diagnosis for this admission?: Yes Plan: Dr. Villarreal saw her and wrote that he agrees IV iron. Will look to give her 500mg of IV ferraheme. She is being screened for possible GI bleed. If hemoglobin remains low after iron saturations are normal and all causes for a possible active bleed are ruled out, then we will consider procrit for the patient. Discussed with her medical power of real estate associate attorney the Intra venous Ferraheme. Explained the rationale in using the IV preparation versus oral form. Discussed about the side effects of IV Ferraheme including allergic reactions including very severe type called anaphylaxis, Domingo madhav syndrome. Discussed about possible hypotension post administration. They were agreeable for her to receive it. - Notes Notes: case was discussed with Dr. Wagner
[2017-12-22] MEDS: WARFARIN SODIUM 4 MG TABLET PO SCH (18:22)
[2017-12-23 04:54] LABS: ABSOLUTE BASOPHILS # (AUTO) 0.1 10^3/uL (0.0-0.2); ABSOLUTE EOSINOPHILS # (AUTO) 0.4 10^3/uL (0.0-0.6); ABSOLUTE LYMPHOCYTES (AUTO) 1.7 10^3/uL (0.5-4.7); ABSOLUTE MONOCYTES (AUTO) 0.5 10^3/uL (0.1-1.4); ABSOLUTE NEUT (AUTO) 2.3 10^3/uL (1.7-8.2); BASOPHILS % (AUTO) 1.2 % (0-2); EOSINOPHILS % (AUTO) 8.9 % (0-6); HEMATOCRIT 27.7 % (36.0-47.0); LYMPHOCYTES % (AUTO) 34.6 % (13-45); MEAN CORPUSCULAR HEMOGLOBIN 23.9 pg (27.0-33.4); MEAN CORPUSCULAR HGB CONC 32.3 g/dL (32.0-36.0); MEAN CORPUSCULAR VOLUME 74 fl (80-97); MONOCYTES % (AUTO) 9.5 % (3-13); PLATELET COUNT 224 10^3/uL (150-450); RED BLOOD COUNT 3.75 10^6/uL (3.72-5.28); RED CELL DISTRIBUTION WIDTH 23.7 % (11.5-14.0); SEGMENTED NEUTROPHILS % (AUTO) 45.8 % (42-78); TOTAL CELLS COUNTED % (AUTO) 100 %
[2017-12-23 05:13] LABS: ANION GAP 8 (5-19); BLOOD UREA NITROGEN 33 mg/dL (7-20); CALCIUM 9.2 mg/dL (8.4-10.2); CARBON DIOXIDE 29 mmol/L (22-30); CHLORIDE 105 mmol/L (98-107); GLUCOSE 84 mg/dL (75-110); POTASSIUM 4.4 mmol/L (3.6-5.0); SODIUM 141.8 mmol/L (137-145)
[2017-12-23] MEDS: LANSOPRAZOLE 15 MG TAB.RAP.DR PO SCH ×2 (05:34→17:07)
--- NOTE | 2017-12-23 07:43 | PDOC PROGRESS REPORT ---
Subjective Progress Note for:: 12/23/17 Subjective:: Patient states that she had a good night. No problems today. She is anxious to go home. Reason For Visit: ARF Physical Exam Vital Signs: Temp Pulse Resp BP Pulse Ox 98.4 F 79 20 90/50 L 95 12/23/17 03:16 12/23/17 03:16 12/23/17 03:16 12/23/17 03:16 12/23/17 03:16 Intake & Output 12/22/17 12/23/17 12/24/17 06:59 06:59 06:59 Intake Total 2361 1523 Output Total 1200 Balance 1161 1523 Weight 74.5 kg 74.8 kg General appearance: PRESENT: no acute distress Respiratory exam: PRESENT: clear to auscultation meghna Cardiovascular exam: PRESENT: RRR Extremities exam: PRESENT: +1 edema, other - TEDs in place. Some tenderness to palpation. Neurological exam: PRESENT: alert, awake Psychiatric exam: PRESENT: appropriate affect Results Laboratory Results: 12/23/17 04:23 12/23/17 04:23 12/23/17 12/23/17 04:23 04:23 WBC 5.0 RBC 3.75 Hgb 9.0 L Hct 27.7 L MCV 74 L MCH 23.9 L MCHC 32.3 RDW 23.7 H Plt Count 224 Seg Neutrophils % 45.8 Lymphocytes % 34.6 Monocytes % 9.5 Eosinophils % 8.9 H Basophils % 1.2 Absolute Neutrophils 2.3 Absolute Lymphocytes 1.7 Absolute Monocytes 0.5 Absolute Eosinophils 0.4 Absolute Basophils 0.1 Sodium 141.8 Potassium 4.4 Chloride 105 Carbon Dioxide 29 Anion Gap 8 BUN 33 H Creatinine 1.50 H Est GFR ( Amer) 41 L Est GFR (Non-Af Amer) 34 L Glucose 84 Calcium 9.2 12/16/17 12/16/17 12/16/17 07:03 07:03 12:44 Creatine Kinase 48 46 CK-MB (CK-2) 0.78 Troponin I 0.053 NT-Pro-B Natriuret Pep 12/16/17 12/16/17 12/16/17 12:44 18:30 18:30 Creatine Kinase 48 CK-MB (CK-2) 0.69 0.69 Troponin I 0.046 0.045 NT-Pro-B Natriuret Pep 12/17/17 12/20/17 04:43 15:25 Creatine Kinase CK-MB (CK-2) Troponin I NT-Pro-B Natriuret Pep 2580 H 9710 H Impressions: Head CT 12/15/17 22:24 IMPRESSION: 1. No acute intracranial abnormality by CT criteria. This exam was performed according to our departmental dose-optimization program, which includes automated exposure control, adjustment of the mA and/or kV according to patient size and/or use of iterative reconstruction technique. Abdomen/Pelvis CT 12/16/17 00:00 IMPRESSION: 1. No acute or suspicious abdominopelvic abnormality. 2. Cardiomegaly, cholelithiasis, diverticulosis. Renal Ultrasound 12/16/17 00:00 IMPRESSION: The kidneys are small but otherwise normal. The bladder was not able be evaluated. Chest X-Ray 12/20/17 12:48 IMPRESSION: POSSIBLE TRACE BILATERAL PLEURAL EFFUSIONS. NO ADDITIONAL ACUTE FINDINGS Assessment & Plan - Diagnosis (1) Chronic a-fib Is this a current diagnosis for this admission?: Yes (2) Iron deficiency anemia Qualifiers: Iron deficiency anemia type: unspecified iron deficiency Qualified Code(s) : D50.9 - Iron deficiency anemia, unspecified Is this a current diagnosis for this admission?: Yes (3) Renal failure (ARF), acute on chronic Qualifiers: Acute renal failure type: unspecified Chronic kidney disease stage: stage 3 (moderate) Qualified Code(s): N17.9 - Acute kidney failure, unspecified; N18.3 - Chronic kidney disease, stage 3 (moderate); N18.3 - Chronic kidney disease, stage 3 (moderate) Is this a current diagnosis for this admission?: Yes (4) Dementia Qualifiers: Dementia type: unspecified type Dementia behavioral disturbance: with behavioral disturbance Qualified Code(s): F03.91 - Unspecified dementia with behavioral disturbance Is this a current diagnosis for this admission?: Yes - Plan Summary Plan Summary: She did receive IV iron yesterday. Her HGB appears very stable. Her coumadin dose has been increased appropriately. INR is therapeutic. I will be happy to see her again in about 2 weeks. Her INR should be checked at least weekly. Repeat CBC, Ferritin in a few weeks and continue to follow.
[2017-12-23] MEDS: ASPIRIN 81 MG TABLET, ENT COATED PO SCH (09:52)
[2017-12-23] MEDS: LEVETIRACETAM 500 MG TABLET PO SCH (09:52)
[2017-12-23] MEDS: SACUBITRIL/VALSARTAN 24 MG/26 MG TABLET PO SCH (09:53)
[2017-12-23] MEDS: TORSEMIDE 20 MG TABLET PO SCH (09:53)
--- NOTE | 2017-12-23 11:51 | PDOC PROGRESS REPORT ---
Subjective Progress Note for:: 12/23/17 Subjective:: Patient is currently doing well She has denied any chest pain denied any shortness of the breath Patient's otherwise is pretty much ready to go home except patient's blood pressure is running in the lower range Patient currently put on enresro Due to the patient is a very low EF and patient #1 paced pacemaker ptHemoglobin is currently stable Discussed with the mobile health vehicle operator and suggest the patient received iron transfusionAnd she will give another couple of weeks The patient's continues to drop the hemoglobin need a GI evaluations Reason For Visit: ARF Physical Exam Vital Signs: Temp Pulse Resp BP Pulse Ox 98.2 F 76 16 104/48 L 100 12/23/17 08:16 12/23/17 08:16 12/23/17 08:16 12/23/17 08:16 12/23/17 08:16 Intake & Output 12/22/17 12/23/17 12/24/17 06:59 06:59 06:59 Intake Total 2361 1523 Output Total 1200 Balance 1161 1523 Weight 74.5 kg 74.8 kg General appearance: PRESENT: no acute distress, well-developed, well-nourished Head exam: PRESENT: atraumatic, normocephalic Eye exam: PRESENT: conjunctiva pink, EOMI, PERRLA. ABSENT: scleral icterus Ear exam: PRESENT: normal external ear exam Mouth exam: PRESENT: moist, tongue midline Neck exam: PRESENT: full ROM. ABSENT: carotid bruit, JVD, lymphadenopathy, thyromegaly Respiratory exam: PRESENT: clear to auscultation meghna Cardiovascular exam: PRESENT: RRR. ABSENT: diastolic murmur, rubs, systolic murmur Pulses: PRESENT: normal dorsalis pedis pul, +2 pedal pulses bilateral Vascular exam: PRESENT: normal capillary refill GI/Abdominal exam: PRESENT: normal bowel sounds, soft. ABSENT: distended, guarding, mass, organolmegaly, rebound, tenderness Rectal exam: PRESENT: deferred Neurological exam: PRESENT: alert, awake, oriented to person. ABSENT: motor sensory deficit Psychiatric exam: PRESENT: appropriate affect, normal mood. ABSENT: homicidal ideation, suicidal ideation Skin exam: PRESENT: dry, intact, warm. ABSENT: cyanosis, rash Results Laboratory Results: 12/23/17 04:23 12/23/17 04:23 12/23/17 12/23/17 04:23 04:23 WBC 5.0 RBC 3.75 Hgb 9.0 L Hct 27.7 L MCV 74 L MCH 23.9 L MCHC 32.3 RDW 23.7 H Plt Count 224 Seg Neutrophils % 45.8 Lymphocytes % 34.6 Monocytes % 9.5 Eosinophils % 8.9 H Basophils % 1.2 Absolute Neutrophils 2.3 Absolute Lymphocytes 1.7 Absolute Monocytes 0.5 Absolute Eosinophils 0.4 Absolute Basophils 0.1 Sodium 141.8 Potassium 4.4 Chloride 105 Carbon Dioxide 29 Anion Gap 8 BUN 33 H Creatinine 1.50 H Est GFR ( Amer) 41 L Est GFR (Non-Af Amer) 34 L Glucose 84 Calcium 9.2 12/16/17 12/16/17 12/16/17 07:03 07:03 12:44 Creatine Kinase 48 46 CK-MB (CK-2) 0.78 Troponin I 0.053 NT-Pro-B Natriuret Pep 12/16/17 12/16/17 12/16/17 12:44 18:30 18:30 Creatine Kinase 48 CK-MB (CK-2) 0.69 0.69 Troponin I 0.046 0.045 NT-Pro-B Natriuret Pep 12/17/17 12/20/17 04:43 15:25 Creatine Kinase CK-MB (CK-2) Troponin I NT-Pro-B Natriuret Pep 2580 H 9710 H Impressions: Head CT 12/15/17 22:24 IMPRESSION: 1. No acute intracranial abnormality by CT criteria. This exam was performed according to our departmental dose-optimization program, which includes automated exposure control, adjustment of the mA and/or kV according to patient size and/or use of iterative reconstruction technique. Abdomen/Pelvis CT 12/16/17 00:00 IMPRESSION: 1. No acute or suspicious abdominopelvic abnormality. 2. Cardiomegaly, cholelithiasis, diverticulosis. Renal Ultrasound 12/16/17 00:00 IMPRESSION: The kidneys are small but otherwise normal. The bladder was not able be evaluated. Chest X-Ray 12/20/17 12:48 IMPRESSION: POSSIBLE TRACE BILATERAL PLEURAL EFFUSIONS. NO ADDITIONAL ACUTE FINDINGS Assessment & Plan - Diagnosis (1) Renal failure (ARF), acute on chronic Qualifiers: Acute renal failure type: unspecified Chronic kidney disease stage: stage 3 (moderate) Qualified Code(s): N17.9 - Acute kidney failure, unspecified; N18.3 - Chronic kidney disease, stage 3 (moderate); N18.3 - Chronic kidney disease, stage 3 (moderate) Is this a current diagnosis for this admission?: Yes Plan: Currently all stable (2) Seizure Is this a current diagnosis for this admission?: Yes Plan: Continues to Keppra (3) Hypertension Qualifiers: Hypertension type: essential hypertension Qualified Code(s): I10 - Essential (primary) hypertension Is this a current diagnosis for this admission?: Yes Plan: Currently running in the low discussed with the cardiology continues to monitor (4) Congestive heart failure Qualifiers: Heart failure type: systolic Heart failure chronicity: chronic Qualified Code(s): I50.22 - Chronic systolic (congestive) heart failure Is this a current diagnosis for this admission?: Yes Plan: Continues to torsemide 20 mg p.o. twice a day (5) Coronary artery disease Qualifiers: Coronary Disease-Associated Artery/Lesion type: unspecified vessel or lesion type Is this a current diagnosis for this admission?: Yes Plan: We consult the cardiology and repeat the cardiac enzyme (6) Dementia Qualifiers: Dementia type: unspecified type Dementia behavioral disturbance: with behavioral disturbance Qualified Code(s): F03.91 - Unspecified dementia with behavioral disturbance Is this a current diagnosis for this admission?: Yes Plan: Patient's currently also see a neurology (7) History of implantable cardioverter-defibrillator (ICD) placement Is this a current diagnosis for this admission?: Yes Plan: Current CT of the head is negative (8) Vomiting Qualifiers: Vomiting type: unspecified Vomiting Intractability: non-intractable Nausea presence: with nausea Qualified Code(s): R11.2 - Nausea with vomiting, unspecified Is this a current diagnosis for this admission?: Yes (9) Chronic a-fib Is this a current diagnosis for this admission?: Yes Plan: Currently in a chronic Coumadin INR is 1.5 (10) Noncompliance Is this a current diagnosis for this admission?: Yes (11) Iron deficiency anemia Qualifiers: Iron deficiency anemia type: unspecified iron deficiency Qualified Code(s) : D50.9 - Iron deficiency anemia, unspecified Is this a current diagnosis for this admission?: Yes Plan: Get the stool for the guaiac and also iron transfusion - Time Time Spent with patient: 15-24 minutes Medications reviewed and adjusted accordingly: Yes Anticipated discharge: Home Within: within 24 hours - Inpatient Certification Medical Necessity: Need Close Monitoring Due to Risk of Patient Decompensation Post Hospital Care: D/C Supervisor Operations Documentation - Plan Summary Plan Summary: Continues to current medications
[2017-12-23 12:06] LABS: INTERNATIONAL RATION (INR) 2.18; PROTHROMBIN TIME 25.3 SEC (11.4-15.4)
--- NOTE | 2017-12-23 13:16 | PDOC PROGRESS REPORT ---
Subjective Progress Note for:: 12/23/17 Subjective:: Patient was happy and sitting on the side of her bed when I examined her this morning. She had no complaints of chest pain or SOB. She eager to go home. Reason For Visit: ARF Physical Exam Vital Signs: Temp Pulse Resp BP Pulse Ox 98.1 F 81 16 112/61 100 12/23/17 11:54 12/23/17 11:54 12/23/17 11:54 12/23/17 11:54 12/23/17 11:54 Intake & Output 12/22/17 12/23/17 12/24/17 06:59 06:59 06:59 Intake Total 2361 1523 Output Total 1200 Balance 1161 1523 Weight 74.5 kg 74.8 kg General appearance: PRESENT: no acute distress, well-developed, well-nourished Mouth exam: PRESENT: moist, neck supple Neck exam: PRESENT: full ROM. ABSENT: JVD Respiratory exam: PRESENT: clear to auscultation meghna. ABSENT: crackles, rales, rhonchi, wheezes Cardiovascular exam: PRESENT: irregular rhythm, +S1, +S2. ABSENT: RRR GI/Abdominal exam: PRESENT: soft. ABSENT: ascites, distended, rigid, tenderness Extremities exam: PRESENT: tenderness. ABSENT: pedal edema, +1 edema, +2 edema Musculoskeletal exam: PRESENT: tenderness. ABSENT: normal inspection Neurological exam: PRESENT: alert, awake, oriented to person, oriented to place Psychiatric exam: PRESENT: agitated. ABSENT: appropriate affect, normal mood Skin exam: PRESENT: dry, intact, warm. ABSENT: cyanosis Results Laboratory Results: 12/23/17 04:23 12/23/17 04:23 12/23/17 12/23/17 04:23 04:23 WBC 5.0 RBC 3.75 Hgb 9.0 L Hct 27.7 L MCV 74 L MCH 23.9 L MCHC 32.3 RDW 23.7 H Plt Count 224 Seg Neutrophils % 45.8 Lymphocytes % 34.6 Monocytes % 9.5 Eosinophils % 8.9 H Basophils % 1.2 Absolute Neutrophils 2.3 Absolute Lymphocytes 1.7 Absolute Monocytes 0.5 Absolute Eosinophils 0.4 Absolute Basophils 0.1 Sodium 141.8 Potassium 4.4 Chloride 105 Carbon Dioxide 29 Anion Gap 8 BUN 33 H Creatinine 1.50 H Est GFR ( Amer) 41 L Est GFR (Non-Af Amer) 34 L Glucose 84 Calcium 9.2 12/16/17 12/16/17 12/16/17 07:03 07:03 12:44 Creatine Kinase 48 46 CK-MB (CK-2) 0.78 Troponin I 0.053 NT-Pro-B Natriuret Pep 12/16/17 12/16/17 12/16/17 12:44 18:30 18:30 Creatine Kinase 48 CK-MB (CK-2) 0.69 0.69 Troponin I 0.046 0.045 NT-Pro-B Natriuret Pep 12/17/17 12/20/17 04:43 15:25 Creatine Kinase CK-MB (CK-2) Troponin I NT-Pro-B Natriuret Pep 2580 H 9710 H Impressions: Head CT 12/15/17 22:24 IMPRESSION: 1. No acute intracranial abnormality by CT criteria. This exam was performed according to our departmental dose-optimization program, which includes automated exposure control, adjustment of the mA and/or kV according to patient size and/or use of iterative reconstruction technique. Abdomen/Pelvis CT 12/16/17 00:00 IMPRESSION: 1. No acute or suspicious abdominopelvic abnormality. 2. Cardiomegaly, cholelithiasis, diverticulosis. Renal Ultrasound 12/16/17 00:00 IMPRESSION: The kidneys are small but otherwise normal. The bladder was not able be evaluated. Chest X-Ray 12/20/17 12:48 IMPRESSION: POSSIBLE TRACE BILATERAL PLEURAL EFFUSIONS. NO ADDITIONAL ACUTE FINDINGS Assessment & Plan - Diagnosis (1) Renal failure (ARF), acute on chronic Qualifiers: Acute renal failure type: unspecified Chronic kidney disease stage: stage 3 (moderate) Qualified Code(s): N17.9 - Acute kidney failure, unspecified; N18.3 - Chronic kidney disease, stage 3 (moderate); N18.3 - Chronic kidney disease, stage 3 (moderate) Is this a current diagnosis for this admission?: Yes Plan: looks to be at baseline, from nephrology's standpoint she is stable. Will have her follow up in 10 to [address] Wagner once she is discharged. (2) Seizure Is this a current diagnosis for this admission?: Yes Plan: per Dr. Moncada (3) Chronic a-fib Is this a current diagnosis for this admission?: Yes Plan: Per cardiology (4) Hypertension Qualifiers: Hypertension type: essential hypertension Qualified Code(s): I10 - Essential (primary) hypertension Is this a current diagnosis for this admission?: Yes Plan: stable off antihypertensives (5) Congestive heart failure Qualifiers: Heart failure type: systolic Heart failure chronicity: chronic Qualified Code(s): I50.22 - Chronic systolic (congestive) heart failure Is this a current diagnosis for this admission?: Yes Plan: stable (6) Iron deficiency anemia Qualifiers: Iron deficiency anemia type: unspecified iron deficiency Qualified Code(s) : D50.9 - Iron deficiency anemia, unspecified Is this a current diagnosis for this admission?: Yes Plan: Received IV iron yesterday with no complications. Currently hemoglobin is trending up.
[2017-12-23 16:33] VITALS: BP 122/69
--- NOTE | 2017-12-23 16:55 | PDOC DISCHARGE SUMMARY ---
General - Admit/Disc Date/PCP Admission Date/Primary Care Provider: 12/16/17 00:39 ANDREI SWAIN MD Discharge Date: 12/23/17 - Discharge Diagnosis (1) Renal failure (ARF), acute on chronic Is this a current diagnosis for this admission?: Yes Summary: Currently all stable follow with the nephrology as per discussed with the Dr. Wagner patient is stable discharge (2) Seizure Is this a current diagnosis for this admission?: Yes Summary: Continues to Keppra (3) Hypertension Is this a current diagnosis for this admission?: Yes Summary: Currently stable 122 range continues to in the enresto And add the Coreg after next couple of days but the patient's blood pressures remained stable about 120 (4) Congestive heart failure Is this a current diagnosis for this admission?: Yes Summary: Since EF is very low patients follow with the cardiology at [place] discussed with the daughter to make an appointment to see them (5) Coronary artery disease Is this a current diagnosis for this admission?: Yes Summary: Currently all stable (6) Dementia Is this a current diagnosis for this admission?: Yes Summary: She is currently follow with the neurology (7) History of implantable cardioverter-defibrillator (ICD) placement Is this a current diagnosis for this admission?: Yes Summary: Follow with the cardiology (8) Vomiting Is this a current diagnosis for this admission?: Yes Summary: Currently all resolved (9) Chronic a-fib Is this a current diagnosis for this admission?: Yes Summary: Continues to Coumadin patients follow with the hematology and patient have a home health machine (10) Noncompliance Is this a current diagnosis for this admission?: Yes Summary: His family is very noncompliance again 2 days when we discussed with the patient 's family with the daughter about the patient's current condition and ready to close follow-up but patient's family very adamant to taking her home and daughter understand that patient on multiple comorbidity and require close follow-up Discussed with the patient's family to closely follow with the INR fall precautions and also needs to follow with the cardiology and multiple other subspecialty I hope the patient's family understands so many times discussed in the past when the patient's daughters and they pretty much very noncompliance to follow (11) Iron deficiency anemia Is this a current diagnosis for this admission?: Yes Summary: As per discussed with the hematology currently getting iron transfusion following the 2 weeks and if the patient hemoglobin dropped need a further GI workup - Additional Information Resuscitation Status: Full Code Discharge Diet: Cardiac Discharge Activity: Activity As Tolerated Prescriptions: Levetiracetam [Keppra 500 mg Tablet] 250 mg PO Q12 #60 tablet Sacubitril/Valsartan [Entresto 24 mg/26 mg Tablet] 1 tab PO Q12 #60 tablet Torsemide [Demadex 20 mg Tablet] 20 mg PO DAILY #30 tablet Home Medications: Albuterol Sulfate [Proair HFA] 1 puff IH Q4HP PRN 12/16/17 Aspirin [Ecotrin 81 mg EC Tablet] 81 mg PO DAILY 12/16/17 Bismuth Subsalicylate [Pepto-Bismol 262 Chewable Tablet] 524 mg PO QID 12/16/17 Fluticasone/Vilanterol [Breo Ellipta 100-25 Mcg INH] 1 each IH DAILY 12/16/17 Omeprazole 20 mg PO BID 12/16/17 Warfarin Sodium [Coumadin 3 mg Tablet] 3 mg PO QPM 12/16/17 Levetiracetam [Keppra 500 mg Tablet] 250 mg PO Q12 #60 tablet 12/23/17 Sacubitril/Valsartan [Entresto 24 mg/26 mg Tablet] 1 tab PO Q12 #60 tablet 12/23 Torsemide [Demadex 20 mg Tablet] 20 mg PO DAILY #30 tablet 12/23/17 History of Present Illness History of Present Illness: NAYELI MCKEON is a 72 year old female This is a 72-year-old female with a significant history of the epilepsy currently see a Dr. pham the neurologist and currently taking the Keppra to 50 mg p.o. twice a day but patients stop it because of the more agitations with the medicationsAlso history of for chronic systolic heart failure and coronary artery disease currently [facility] Patients have a chronic systolic heart failure and ICD placementAnd the patient also have a chronic A. fib and currently on chronic CoumadinAnd a chronic kidney disease and currently see a Dr. Wagner Patient is a very noncompliance with a significant underlying dementia and family is not compliant also Patient's also on chronic Coumadin and currently see the medical records technician but did not follow regularly for the Coumadin check Patient's brought to the emergency department yesterday because of the patient have seizures episode and altered mental status in the emergency department initial workup including the CT head was negative other blood work stable except the patient's kidney function is more worsening Patient's last creatinine in my office was 1.6 patient is currently taking the torsemide 20 mg 4 tablets daily Patients when I saw her in the floor alert awake denied any chest pain denied any shortness of the breath but patient has significant underlying dementia Hospital Course Hospital Course: This is a 72-year-old females with the multiple medical problems with a significant history of heart failure with EF is very low at less than 20 persons currently see a [place] [facility] the patient put on the torsemide 80 mg and Zaroxolyn and patient's response very well but patients came with the dry side and patient was in acute renal failure Patient also on the seizures medications but the neurology stop the medications because patient was agitated and patient had a seizures episode and brought to the emergency department and start giving the Keppra Patient's EEG was done was all stable in patients with no seizures episodes Patient seen by Dr. Wagner and patient's baseline kidney function is 1.5 Patient also seen by the Dr. Moody dry transfer worker in the patient echocardiogram was done with the EF is very low and patient was started the in the enresto And patient's blood pressure was 120 range and her discharge and consider to start the beta-gabby\\ Patient seen by the medical records technician for INR and anemia and given iron transfusions and follow outpatient Discussed with the daughter very extensively in all family member wants to take the patient homes and patient wants to go home family understand that patients have a multiple comorbidity require very close follow-up and close blood work Patient's family is very noncompliance to during the patient's to the follow-up appointment and follow-up check a blood work Discussed with the patient's family if the patient's continues been noncompliance interval longer provide the service to the patient's needs to find another primary care provider Discussed with the nursing staff taking care of the patient's to make sure the patient's family follow with all the subspecialty and make appointment Physical Exam Vital Signs: Temp Pulse Resp BP Pulse Ox 98.1 F 77 16 122/69 100 12/23/17 16:31 12/23/17 16:31 12/23/17 16:31 12/23/17 16:31 12/23/17 16:31 Intake & Output 12/22/17 12/23/17 12/24/17 06:59 06:59 06:59 Intake Total 2361 1523 Output Total 1200 Balance 1161 1523 Weight 74.5 kg 74.8 kg General appearance: PRESENT: no acute distress, well-developed, well-nourished Head exam: PRESENT: atraumatic, normocephalic Eye exam: PRESENT: conjunctiva pink, EOMI, PERRLA. ABSENT: scleral icterus Ear exam: PRESENT: normal external ear exam Mouth exam: PRESENT: moist, tongue midline Neck exam: PRESENT: full ROM. ABSENT: carotid bruit, JVD, lymphadenopathy, thyromegaly Respiratory exam: PRESENT: clear to auscultation meghna Cardiovascular exam: PRESENT: RRR. ABSENT: diastolic murmur, rubs, systolic murmur Pulses: PRESENT: normal dorsalis pedis pul, +2 pedal pulses bilateral Vascular exam: PRESENT: normal capillary refill GI/Abdominal exam: PRESENT: normal bowel sounds, soft. ABSENT: distended, guarding, mass, organolmegaly, rebound, tenderness Rectal exam: PRESENT: deferred Musculoskeletal exam: PRESENT: ambulatory Neurological exam: PRESENT: alert, awake, oriented to person, oriented to place , oriented to time, oriented to situation, CN II-XII grossly intact. ABSENT: motor sensory deficit Psychiatric exam: PRESENT: appropriate affect, normal mood. ABSENT: homicidal ideation, suicidal ideation Skin exam: PRESENT: dry, intact, warm. ABSENT: cyanosis, rash Results Laboratory Results: 12/23/17 04:23 12/23/17 04:23 12/23/17 12/23/17 04:23 04:23 WBC 5.0 RBC 3.75 Hgb 9.0 L Hct 27.7 L MCV 74 L MCH 23.9 L MCHC 32.3 RDW 23.7 H Plt Count 224 Seg Neutrophils % 45.8 Lymphocytes % 34.6 Monocytes % 9.5 Eosinophils % 8.9 H Basophils % 1.2 Absolute Neutrophils 2.3 Absolute Lymphocytes 1.7 Absolute Monocytes 0.5 Absolute Eosinophils 0.4 Absolute Basophils 0.1 Sodium 141.8 Potassium 4.4 Chloride 105 Carbon Dioxide 29 Anion Gap 8 BUN 33 H Creatinine 1.50 H Est GFR ( Amer) 41 L Est GFR (Non-Af Amer) 34 L Glucose 84 Calcium 9.2 12/16/17 12/16/17 12/16/17 07:03 07:03 12:44 Creatine Kinase 48 46 CK-MB (CK-2) 0.78 Troponin I 0.053 NT-Pro-B Natriuret Pep 12/16/17 12/16/17 12/16/17 12:44 18:30 18:30 Creatine Kinase 48 CK-MB (CK-2) 0.69 0.69 Troponin I 0.046 0.045 NT-Pro-B Natriuret Pep 12/17/17 12/20/17 04:43 15:25 Creatine Kinase CK-MB (CK-2) Troponin I NT-Pro-B Natriuret Pep 2580 H 9710 H Impressions: Head CT 12/15/17 22:24 IMPRESSION: 1. No acute intracranial abnormality by CT criteria. This exam was performed according to our departmental dose-optimization program, which includes automated exposure control, adjustment of the mA and/or kV according to patient size and/or use of iterative reconstruction technique. Abdomen/Pelvis CT 12/16/17 00:00 IMPRESSION: 1. No acute or suspicious abdominopelvic abnormality. 2. Cardiomegaly, cholelithiasis, diverticulosis. Renal Ultrasound 12/16/17 00:00 IMPRESSION: The kidneys are small but otherwise normal. The bladder was not able be evaluated. Chest X-Ray 12/20/17 12:48 IMPRESSION: POSSIBLE TRACE BILATERAL PLEURAL EFFUSIONS. NO ADDITIONAL ACUTE FINDINGS Qualifiers - * PATIENT BEING DISCHARGED WITH ANY OF THE FOLLOWING DIAGNOSIS: Heart Failure VTE patient discharged on overlapping Therapy?: Yes HF Pt being discharged on ACEI for LVEF less than 40%?: Yes HF Pt being discharged on ARBS for LVEF less than 40%?: Yes HF Pt with Afib discharged with Warfarin?: Yes HF Pt discharged on evidence-based Beta Gabby:: Yes Plan Time Spent: Greater than 30 Minutes - Follow the patient's INR in 3 days and follow the Chem-7 and a one-week and follow with the nephrology Follow with the cardiology
[2017-12-23] MEDS: WARFARIN SODIUM 4 MG TABLET PO SCH (17:06)
--- NOTE | 2017-12-23 20:07 | PDOC PROGRESS REPORT ---
Subjective Progress Note for:: 12/23/17 Subjective:: Patient was started on entresto yesterday but seems like nurses have not given it because of low blood pressure. Recommend that entresto be given unless blood pressure is less than 90 mm systolic. It may be worthwhile to consider stopping trazodone. This was previously discussed with Dr. Moncada. Today I wrote handwritten orders in the chart about not to hold entresto or carvedilol. Patient also started on carvedilol at 3.125 mg p.o. every 12 but to a space it at least 2 hours after interested. Patient seems to be doing better. Renal functions has improved.. Pt is denying any chest arm or neck discomfort. Patient denying any PND, orthopnea. Patient denied any sustained palpitations, dizziness, syncope, near syncope. Patient denying any fever chills. Patient denying any other significant discomfort. Patient laying in bed comfortable. Patient is maintaining sinus rhythm. Review of systems: Rest review of systems negative. Medications: Medications have been reviewed. Reason For Visit: ARF Physical Exam Vital Signs: Temp Pulse Resp BP Pulse Ox 98.1 F 77 16 122/69 100 12/23/17 16:31 12/23/17 16:31 12/23/17 16:31 12/23/17 16:31 12/23/17 16:31 Intake & Output 12/22/17 12/23/17 12/24/17 06:59 06:59 06:59 Intake Total 2361 1523 Output Total 1200 Balance 1161 1523 Weight 74.5 kg 74.8 kg Exam: GENERAL: well-nourished and in no acute distress. Alert and oriented x2 HEAD: Atraumatic, normocephalic. EYES: Pupils equal round and reactive to light, extraocular movements intact, sclera anicteric, conjunctiva are normal. ENT: TMs normal, nares patent, oropharynx clear without exudates. Moist mucous membranes. No oral ulcerations or bleeding gums noted NECK: supple without lymphadenopathy. Trachea is central. No cervical or axillary lymphadenopathy noted. Carotids are 2+, JVD WNL LUNGS: Respiration seems nonlabored, no significant accessory muscle action noted. Breath sounds clear to auscultation bilaterally and equal noted. No wheezes rales or rhonchi noted. No significant dullness noted on percussion. CHEST: Palpation of the chest wall shows no significant chest wall tenderness. HEART: [place] [employer] [place], No PSH, 1/6 JOVON aortic area, 1/6 dill systolic murmur mitral area, no rubs, no gallops. ABDOMEN: Soft, no significant tenderness appreciated, normoactive bowel sounds. No guarding, no rebound. No rigidity noted . No masses appreciated. EXTREMITIES: Pedal pulses are 1-2+, no calf tenderness noted. No clubbing or cyanosis. negative pedal edema noted NEUROLOGICAL: Focused neurological exam showed no significant neurologic deficit. Normal speech, no focal weakness appreciated. PSYCH: Normal mood, normal affect. Judgment and insight not checked. SKIN: No significant ecchymosis, skin is noted to be warm. MUSCULOSKELETAL EXAM: No significant acute joint swelling noted. Results Laboratory Results: 12/23/17 04:23 12/23/17 04:23 12/23/17 12/23/17 04:23 04:23 WBC 5.0 RBC 3.75 Hgb 9.0 L Hct 27.7 L MCV 74 L MCH 23.9 L MCHC 32.3 RDW 23.7 H Plt Count 224 Seg Neutrophils % 45.8 Lymphocytes % 34.6 Monocytes % 9.5 Eosinophils % 8.9 H Basophils % 1.2 Absolute Neutrophils 2.3 Absolute Lymphocytes 1.7 Absolute Monocytes 0.5 Absolute Eosinophils 0.4 Absolute Basophils 0.1 Sodium 141.8 Potassium 4.4 Chloride 105 Carbon Dioxide 29 Anion Gap 8 BUN 33 H Creatinine 1.50 H Est GFR ( Amer) 41 L Est GFR (Non-Af Amer) 34 L Glucose 84 Calcium 9.2 12/16/17 12/16/17 12/16/17 07:03 07:03 12:44 Creatine Kinase 48 46 CK-MB (CK-2) 0.78 Troponin I 0.053 NT-Pro-B Natriuret Pep 12/16/17 12/16/17 12/16/17 12:44 18:30 18:30 Creatine Kinase 48 CK-MB (CK-2) 0.69 0.69 Troponin I 0.046 0.045 NT-Pro-B Natriuret Pep 12/17/17 12/20/17 04:43 15:25 Creatine Kinase CK-MB (CK-2) Troponin I NT-Pro-B Natriuret Pep 2580 H 9710 H EKG Comments: Sinus rhythm no sustained tacky or bradycardia arrhythmias were noted. Impressions: Head CT 12/15/17 22:24 IMPRESSION: 1. No acute intracranial abnormality by CT criteria. This exam was performed according to our departmental dose-optimization program, which includes automated exposure control, adjustment of the mA and/or kV according to patient size and/or use of iterative reconstruction technique. Abdomen/Pelvis CT 12/16/17 00:00 IMPRESSION: 1. No acute or suspicious abdominopelvic abnormality. 2. Cardiomegaly, cholelithiasis, diverticulosis. Renal Ultrasound 12/16/17 00:00 IMPRESSION: The kidneys are small but otherwise normal. The bladder was not able be evaluated. Chest X-Ray 12/20/17 12:48 IMPRESSION: POSSIBLE TRACE BILATERAL PLEURAL EFFUSIONS. NO ADDITIONAL ACUTE FINDINGS Assessment & Plan - Diagnosis (1) Renal failure (ARF), acute on chronic Qualifiers: Acute renal failure type: unspecified Chronic kidney disease stage: stage 3 (moderate) Qualified Code(s): N17.9 - Acute kidney failure, unspecified; N18.3 - Chronic kidney disease, stage 3 (moderate); N18.3 - Chronic kidney disease, stage 3 (moderate) Is this a current diagnosis for this admission?: Yes (2) Congestive heart failure Qualifiers: Heart failure type: systolic Heart failure chronicity: chronic Qualified Code(s): I50.22 - Chronic systolic (congestive) heart failure Is this a current diagnosis for this admission?: Yes (3) Coronary artery disease Qualifiers: Coronary Disease-Associated Artery/Lesion type: unspecified vessel or lesion type Is this a current diagnosis for this admission?: Yes (4) History of implantable cardioverter-defibrillator (ICD) placement Is this a current diagnosis for this admission?: Yes (5) Hypertension Qualifiers: Hypertension type: essential hypertension Qualified Code(s): I10 - Essential (primary) hypertension Is this a current diagnosis for this admission?: Yes (6) Paroxysmal atrial fibrillation Is this a current diagnosis for this admission?: Yes - Notes Notes: Cardiomyopathy: Patient on echocardiogram was noted to have severely depressed LVEF. Have written orders for patient to be given entresto and also carvedilol and try not to hold them. CHF: Currently still compensated. Watch closely for fluid overload. Continue patient on torsemide at 20 mg p.o. daily. CAD: Clinically stable without any angina or angina equivalent symptom. Dementia: Currently is stable. Continue current medications. History of defibrillator placement: Currently without any recent discharges. Seems to be functioning normally based on telemetry strips reviewed. Hypertension: Blood pressure is still bit on the low side. But will need to start patient back on entresto and carvedilol therapy. May consider stopping trazodone which may help with the blood pressure. Otherwise add Midodrin to the regimen. Paroxysmal atrial fibrillation: Patient maintaining sinus rhythm. Currently on anticoagulation with Coumadin. Acute on chronic renal failure: Renal functions improved. - Time Time with patient: 15-25 minutes - CODE STATUS was discussed, patient remains full code. Surrogate decision-maker unchanged. Multiple medical problems were addressed. More than 50% of the time spent coordinating care, discussing management plans with involved caregivers. Management plans discussed with involved personnels. Medical decision making was of moderate to high complexity , patient's has multiple comorbidities. Medications reviewed and adjusted accordingly: Yes
== END 2017-12-23 17:40 | disposition home health service (06) | DRG 683 ==
LOC: ER 22:13 → EH 12-16 00:39 → 3N 12-16 05:37
PROVIDERS: ADMIT Family Medicine; ATTEND Family Medicine
DX: N17.9 Acute kidney failure, unspecified (principal); I13.0 Hypertensive heart and chronic kidney disease with heart failure and stage 1 through stage 4 chronic kidney disease, or unspecified chronic kidney disease; I50.22 Chronic systolic (congestive) heart failure; F03.91 Unspecified dementia, unspecified severity, with behavioral disturbance; N18.3 Chronic kidney disease, stage 3 (moderate); I25.10 Atherosclerotic heart disease of native coronary artery without angina pectoris; D50.9 Iron deficiency anemia, unspecified; I48.2 Chronic atrial fibrillation; K21.9 Gastro-esophageal reflux disease without esophagitis; G40.909 Epilepsy, unspecified, not intractable, without status epilepticus; I25.2 Old myocardial infarction; Z91.14 Patient's other noncompliance with medication regimen; Z86.73 Personal history of transient ischemic attack (TIA), and cerebral infarction without residual deficits; Z79.01 Long term (current) use of anticoagulants; Z79.82 Long term (current) use of aspirin; Z79.51 Long term (current) use of inhaled steroids; Z79.899 Other long term (current) drug therapy
CPT/HCPCS: 36415; 70450; 71045; 71046; 74176; 76775; 80048; 80053; 81001; 82140; 82550; 82553; 82607; 82728; 82746; 82803; 82962; 83540; 83550; 83605; 83735; 83880; 84466; 84484; 85025; 85045; 85610; 87040; 87086; 93005; 93010; 93306; 95819; 96374; 99291; G8978-GP; G8979-GP; J1953; J2405; J3490; J7030; Q0138

== ENCOUNTER → 2018-01-05 | Outpatient (CLI) | payer MEDICARE, MEDICAID ==
[2018-01-05 14:01] LABS: ALANINE AMINOTRANSFERASE 28 U/L (9-52); ALBUMIN 3.7 g/dL (3.5-5.0); ALKALINE PHOSPHATASE 194 U/L (38-126); ANION GAP 10 (5-19); ASPARTATE AMINO TRANSFERASE 27 U/L (14-36); BILIRUBIN,DIRECT 0.3 mg/dL (0.0-0.4); BILIRUBIN,TOTAL 0.6 mg/dL (0.2-1.3); BLOOD UREA NITROGEN 21 mg/dL (7-20); CALCIUM 9.7 mg/dL (8.4-10.2); CARBON DIOXIDE 33 mmol/L (22-30); CHLORIDE 104 mmol/L (98-107); CHOLESTEROL 194.72 mg/dL (0-200); GLUCOSE 84 mg/dL (75-110); POTASSIUM 3.8 mmol/L (3.6-5.0); SODIUM 147.4 mmol/L (137-145); TOTAL PROTEIN 7.1 g/dL (6.3-8.2); TRIGLYCERIDES 132 mg/dL (<150)
[2018-01-05 14:04] LABS: INTERNATIONAL RATION (INR) 1.31; PROTHROMBIN TIME 16.9 SEC (11.4-15.4)
[2018-01-05 14:11] LABS: DIRECT LDL 85 mg/dL (<100)
[2018-01-05 16:43] LABS: ABSOLUTE BASOPHILS # (AUTO) 0.1 10^3/uL (0.0-0.2); ABSOLUTE EOSINOPHILS # (AUTO) 0.5 10^3/uL (0.0-0.6); ABSOLUTE LYMPHOCYTES (AUTO) 1.5 10^3/uL (0.5-4.7); ABSOLUTE MONOCYTES (AUTO) 0.4 10^3/uL (0.1-1.4); ABSOLUTE NEUT (AUTO) 2.7 10^3/uL (1.7-8.2); BASOPHILS % (AUTO) 1.1 % (0-2); EOSINOPHILS % (AUTO) 9.2 % (0-6); HEMATOCRIT 32.1 % (36.0-47.0); HEMOGLOBIN 10.1 g/dL (12.0-15.5); LYMPHOCYTES % (AUTO) 29.5 % (13-45); MEAN CORPUSCULAR HEMOGLOBIN 25.1 pg (27.0-33.4); MEAN CORPUSCULAR HGB CONC 31.4 g/dL (32.0-36.0); MONOCYTES % (AUTO) 8.2 % (3-13); PLATELET COUNT 237 10^3/uL (150-450); RED BLOOD COUNT 4.01 10^6/uL (3.72-5.28); TOTAL CELLS COUNTED % (AUTO) 100 %; WHITE BLOOD COUNT 5.2 10^3/uL (4.0-10.5)
[2018-01-05 17:18] LABS: ANISOCYTOSIS 3+; HYPOCHROMASIA SLIGHT; OVALOCYTES SLIGHT; PLATELET COMMENT ADEQUATE; POIKILOCYTOSIS 1+; TARGET CELLS SLIGHT; TOXIC GRANULATION SLIGHT
[2018-01-05 17:19] LABS: MEAN CORPUSCULAR VOLUME 80 fl (80-97)
== END ==
LOC: OD 12:19
PROVIDERS: ATTEND Family Medicine Geriatric Medicine
DX: I50.9 Heart failure, unspecified (principal); I48.2 Chronic atrial fibrillation; G40.909 Epilepsy, unspecified, not intractable, without status epilepticus; K21.9 Gastro-esophageal reflux disease without esophagitis; E66.3 Overweight; Z79.899 Other long term (current) drug therapy
CPT/HCPCS: 36415; 80053; 80061; 84443; 85025; 85610

== ENCOUNTER → 2018-02-24 | Outpatient (CLI) | payer MEDICARE, MEDICAID ==
--- NOTE | 2018-02-24 10:07 | RADIOLOGY REPORT (SQ) ---
EXAM DESCRIPTION: U/S ABDOMEN LIMITED W/O DOP COMPLETED DATE/TIME: 02/24/2018 9:36 am REASON FOR STUDY: ABN LIVER FUNCTION TEST R94.5 ABNORMAL RESULTS OF LIVER FUNCTION STUDIES COMPARISON: Renal ultrasound 12/16/2017 CT abdomen pelvis 12/16/2017 TECHNIQUE: Dynamic and static grayscale images acquired of the abdomen and recorded on PACS. Additio nal selected color Doppler and spectral images recorded. LIMITATIONS: Midline bowel gas FINDINGS: PANCREAS: Not well seen LIVER: No masses. Echotexture normal. LIVER VASCULATURE: Normal directional flow of the main portal vein and hepatic veins. GALLBLADDER: 2 cm stone in the gallbladder fundus. No gross gallbladder wall thickening or perichole cystic fluid. ULTRASOUND-DETECTED PABON'S SIGN: Negative. INTRAHEPATIC DUCTS AND COMMON DUCT: CBD and intrahepatic ducts normal caliber. No filling defects. INFERIOR VENA CAVA: Normal flow. AORTA: No aneurysm. RIGHT KIDNEY: Normal size. Normal echogenicity. No solid or suspicious masses. No hydronephrosis. No calcifications. PERITONEAL AND RIGHT PLEURAL SPACE: No ascites or effusions. OTHER: No other significant findings. IMPRESSION: 2 cm stone in the gallbladder fundus. No gallbladder wall thickening or pericholecystic fluid. TECHNICAL DOCUMENTATION: JOB ID: [id number] [employer]- All Rights Reserved Reading location - IP/workstation name: [email or web address]
[2018-02-24 10:08] LABS: INTERNATIONAL RATION (INR) 2.32; PROTHROMBIN TIME 26.6 SEC (11.4-15.4)
[2018-02-24 10:22] LABS: ALANINE AMINOTRANSFERASE 34 U/L (9-52); ALBUMIN 3.6 g/dL (3.5-5.0); ALKALINE PHOSPHATASE 149 U/L (38-126); ASPARTATE AMINO TRANSFERASE 30 U/L (14-36); BILIRUBIN,DIRECT 0.5 mg/dL (0.0-0.4); BILIRUBIN,TOTAL 1.1 mg/dL (0.2-1.3); TOTAL PROTEIN 6.8 g/dL (6.3-8.2); TRIGLYCERIDES 92 mg/dL (<150)
[2018-02-24 10:33] LABS: DIRECT LDL 41 mg/dL (<100)
== END ==
LOC: RAD 08:46
PROVIDERS: ATTEND Family Medicine Geriatric Medicine
DX: E78.5 Hyperlipidemia, unspecified (principal); N18.3 Chronic kidney disease, stage 3 (moderate); R84.5 Abnormal microbiological findings in specimens from respiratory organs and thorax; I48.2 Chronic atrial fibrillation; K80.20 Calculus of gallbladder without cholecystitis without obstruction
CPT/HCPCS: 36415; 76705; 80061; 80076; 82306; 85610

== ENCOUNTER 2018-04-09 12:28 | Inpatient (IN) | payer MEDICARE, MEDICAID ==
--- NOTE | 2018-04-09 13:02 | ER Document Report ---
ED Medical Screen (RME) - General Chief Complaint: Breathing Difficulty Stated Complaint: DIFFICULTY BREATHING/WEAKNESS Time Seen by Provider: 04/09/18 12:59 Mode of Arrival: Wheelchair Information source: Relative TRAVEL OUTSIDE OF THE [place] 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 Subsequently referred to the emergency room for continued monitoring and evaluation. - Related Data Allergies/Adverse Reactions: No Known Allergies Allergy (Verified 08/07/17 08:51) Past Medical History - Social History Frequency of alcohol use: None Drug Abuse: None - Past Medical History Cardiac Medical History: Reports: Hx Atrial Fibrillation, Hx Congestive Heart Failure, Hx Coronary Artery Disease, Hx Heart Attack, Hx Hypercholesterolemia, Hx Hypertension Neurological Medical History: Reports: Hx Cerebrovascular Accident Renal/ Medical History: Denies: Hx Peritoneal Dialysis GI Medical History: Reports: Hx Gastroesophageal Reflux Disease Psychiatric Medical History: Reports: Hx Dementia, Hx Depression Past Surgical History: Reports: Hx Cardiac Catheterization Physical Exam - Vital signs Vitals: Temp Pulse Resp BP Pulse Ox 97.6 F 77 24 H 107/73 100 04/09/18 12:51 04/09/18 12:51 04/09/18 12:51 04/09/18 12:51 04/09/18 12:51 - Notes Notes: Chronically ill-appearing elderly appearing weak woman +2 pitting edema in the bilateral lower extremities Course - Re-evaluation Re-evalutation: 04/09/18 13:04 This 73-year-old female with a myriad of medical problems presents for evaluation of syncope in the setting of being 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 On examination she is somnolent, fatigued, her daughter does her speaking for. Given that she had a near syncopal episode today in addition worsening shortness of breath and a relative 10 pound weight gain over the last 2 weeks from her dry weight believe she would benefit from further investigation including but not limited to EKG, will obtain troponin CBC CMP. We will plan for monitoring reassessment. Patient to go to the main emergency department for further investigation. - Vital Signs Vital signs: Temp Pulse Resp BP Pulse Ox 97.6 F 77 24 H 107/73 100 04/09/18 12:51 04/09/18 12:51 04/09/18 12:51 04/09/18 12:51 04/09/18 12:51 Doctor's Discharge - Discharge Referrals: CODY MEHTA MD [Primary Care Provider] - Follow up as needed
--- NOTE | 2018-04-09 13:50 | RADIOLOGY REPORT (SQ) ---
EXAM DESCRIPTION: CHEST 2 VIEWS COMPLETED DATE/TIME: 04/09/2018 1:32 pm REASON FOR STUDY: syncope COMPARISON: 12/20/2017 NUMBER OF VIEWS: Two views. TECHNIQUE: Frontal and lateral radiographic views of the chest acquired. LIMITATIONS: None. FINDINGS: LUNGS AND PLEURA: Chronic interstitial changes. No evidence of pneumonia. No effusions. MEDIASTINUM AND HILAR STRUCTURES: No masses or contour abnormality. HEART AND VASCULAR STRUCTURES: Cardiac enlargement. Vascular congestion. BONES: No acute findings. HARDWARE: Stable position of defibrillator. OTHER: No other significant finding. IMPRESSION: CARDIAC ENLARGEMENT. VASCULAR CONGESTION. TECHNICAL DOCUMENTATION: JOB ID: [id number] [employer]- All Rights Reserved Reading location - IP/workstation name: [email or web address]
--- NOTE | 2018-04-09 14:14 | ER Document Report ---
ED General - General Chief Complaint: Breathing Difficulty Stated Complaint: DIFFICULTY BREATHING/WEAKNESS Time Seen by Provider: 04/09/18 12:59 Mode of Arrival: Wheelchair TRAVEL OUTSIDE OF THE [place] IN LAST 30 DAYS: No - HPI Notes: Patient is a 73-year-old female with a history of A. 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 Family has noticed that she has had increased edema buildup to her LE's over the last 3 weeks despite use of torsemide. They have also noticed an increase in her weakness primarily with ambulation as she has needed assistance primarily of the last day. She has been eating and drinking without any difficulties. She has been urinating normally and having normal bowel movements otherwise. She has no concern of pain. She is at baseline with her mentation and speech otherwise per the family. She did not have any loss of consciousness. Denies any headache, fever , head injury, neck pain, changes in vision/speech/mentation/hearing, URI, sore throat, chest pain, palpitations, syncope, cough, abdominal pain, nausea/ vomiting/diarrhea, urinary retention, dysuria, hematuria, loss of control of bowel or bladder, numbness/tingling, saddle anesthesia, muscle paralysis, or rash. - Related Data Allergies/Adverse Reactions: No Known Allergies Allergy (Verified 08/07/17 08:51) Past Medical History - General Information source: Relative - Social History Smoking Status: Unknown if Ever Smoked Frequency of alcohol use: None Drug Abuse: None Family History: Hypertension Patient has suicidal ideation: No Patient has homicidal ideation: No - Past Medical History Cardiac Medical History: Reports: Hx Atrial Fibrillation, Hx Congestive Heart Failure, Hx Coronary Artery Disease, Hx Heart Attack, Hx Hypercholesterolemia, Hx Hypertension Neurological Medical History: Reports: Hx Cerebrovascular Accident Renal/ Medical History: Denies: Hx Peritoneal Dialysis GI Medical History: Reports: Hx Gastroesophageal Reflux Disease Psychiatric Medical History: Reports: Hx Dementia, Hx Depression Past Surgical History: Reports: Hx Cardiac Catheterization Review of Systems - Review of Systems -: Yes All other systems reviewed and negative Physical Exam - Vital signs Vitals: Temp Pulse Resp BP Pulse Ox 97.6 F 77 24 H 107/73 100 04/09/18 12:51 04/09/18 12:51 04/09/18 12:51 04/09/18 12:51 04/09/18 12:51 - Notes Notes: PHYSICAL EXAMINATION: GENERAL: Well-appearing, well-nourished and in no acute distress, but does have some tachypnea (24 approx). HEAD: Atraumatic, normocephalic. EYES: Pupils equal round and reactive to light, extraocular movements intact, sclera anicteric, conjunctiva are normal. ENT: Nares patent and without discharge. oropharynx clear without exudates. No tonsilar hypertrophy or erythema. Moist mucous membranes. NECK: Normal range of motion, supple without lymphadenopathy LUNGS: Dec breath sounds HEART: irregularly irregular ABDOMEN: Soft, nontender, nondistended abdomen. No guarding, no rebound. No masses appreciated. Normal bowel sounds present. No CVA tenderness bilaterally. Musculoskeletal: FROM to passive/active. Strength 5+/5. Cameron neg. Extremities: 2+ pitting edema b/l. Peripheral pulses 2+. Capillary refill less than 3 seconds. NEUROLOGICAL: Normal speech. Cranial nerves grossly intact 2-12. PSYCH: Normal mood, normal affect. SKIN: Warm, Dry, normal turgor, no rashes or lesions noted. Course - Re-evaluation Re-evalutation: 04/09/18 16:50 Patient is having acute on chronic renal failure as well as suspected acute exacerbation of CHF. Patient has remained tachypneic and feels like she is a little bit of distress at this time. She has maintained her oxygen saturation greater than 96% on room air. We will be starting her on BiPAP. Patient's potassium was 3.1 which was supplemented. Her INR was also elevated at 5.65 without any active bleeding and recommendation need to hold Coumadin for a couple days with close monitoring. This was reviewed with Dr. Thao who is in agreement and we will not give a dose of vit K at this time. Patient has a lactic acid of 2.8. Her vitals have otherwise remained acceptable without any significant tachycardia, hypotension, or hypoxia. Reviewed with hospitalist, Dr. Gold, who accepted pt for admission. - Vital Signs Vital signs: Temp Pulse Resp BP Pulse Ox 97.6 F 77 21 H 109/81 100 04/09/18 12:51 04/09/18 12:51 04/09/18 15:24 04/09/18 15:24 04/09/18 14:22 - Laboratory Result Diagrams: 04/09/18 14:30 04/09/18 15:36 Laboratory results interpreted by me: 04/09/18 04/09/18 04/09/18 14:30 14:30 15:13 Hgb 10.5 L Hct 31.3 L MCV 76 L MCH 25.5 L RDW 21.3 H PT INR Potassium BUN Creatinine Est GFR ( Amer) Est GFR (Non-Af Amer) Lactic Acid 2.8 H Total Bilirubin Direct Bilirubin Alkaline Phosphatase Urine Blood SMALL H Urine Urobilinogen 4.0 H Ur Leukocyte Esterase TRACE H 04/09/18 04/09/18 15:36 15:36 Hgb Hct MCV MCH RDW PT 53.6 H* INR 5.65 H* Potassium 3.1 L BUN 84 H Creatinine 2.72 H Est GFR ( Amer) 21 L Est GFR (Non-Af Amer) 17 L Lactic Acid Total Bilirubin 2.1 H Direct Bilirubin 1.0 H Alkaline Phosphatase 175 H Urine Blood Urine Urobilinogen Ur Leukocyte Esterase Discharge - Discharge Clinical Impression: Acute on chronic renal failure Qualifiers: Acute renal failure type: unspecified Chronic kidney disease stage: unspecified stage Qualified Code(s): N17.9 - Acute kidney failure, unspecified Congestive heart failure Qualifiers: Heart failure type: unspecified Heart failure chronicity: acute Qualified Code( s): I50.9 - Heart failure, unspecified Condition: Stable Disposition: ADMITTED INPATIENT Admitting Provider: Hospitalist - Dr. Gold Unit Admitted: IMCU Referrals: CODY MEHTA MD [Primary Care Provider] - Follow up as needed
[2018-04-09 14:50] LABS: HEMATOCRIT 31.3 % (36.0-47.0); HEMOGLOBIN 10.5 g/dL (12.0-15.5); MEAN CORPUSCULAR HEMOGLOBIN 25.5 pg (27.0-33.4); MEAN CORPUSCULAR HGB CONC 33.4 g/dL (32.0-36.0); MEAN CORPUSCULAR VOLUME 76 fl (80-97); PLATELET COUNT 270 10^3/uL (150-450); RED BLOOD COUNT 4.11 10^6/uL (3.72-5.28); RED CELL DISTRIBUTION WIDTH 21.3 % (11.5-14.0); WHITE BLOOD COUNT 4.1 10^3/uL (4.0-10.5)
[2018-04-09 15:24] LABS: ABSOLUTE LYMPHOCYTES# (MANUAL) 0.8 10^3/uL (0.5-4.7); ABSOLUTE MONOCYTES # (MANUAL) 0.4 10^3/uL (0.1-1.4); BASOPHILS % (MANUAL) 0 % (0-2); EOSINOPHILS % (MANUAL) 0 % (0-6); LYMPHOCYTES % (MANUAL) 19 % (13-45); MONOCYTES % (MANUAL) 9 % (3-13); SEGMENTED NEUTROPHILS % (MAN) 72 % (42-78); TOTAL CELLS COUNTED 100
[2018-04-09 15:26] LABS: TOXIC GRANULATION SLIGHT
[2018-04-09 15:27] LABS: ANISOCYTOSIS 2+; HYPOCHROMASIA SLIGHT; OVALOCYTES SLIGHT; PLATELET COMMENT ADEQUATE; POIKILOCYTOSIS SLIGHT; SCHISTOCYTES SLIGHT
[2018-04-09 15:42] LABS: APPEARANCE,URINE SLIGHTLY-CLOUDY; BILIRUBIN,URINE NEGATIVE (NEGATIVE); COLOR,URINE YELLOW; GLUCOSE, URINE NEGATIVE (NEGATIVE); KETONES,URINE NEGATIVE (NEGATIVE); LEUKOCYTE ESTERASE,URINE TRACE (NEGATIVE); NITRITE,URINE NEGATIVE (NEGATIVE); PROTEIN,URINE NEGATIVE (NEGATIVE); URINE SPECIFIC GRAVITY 1.009
[2018-04-09 15:55] LABS: VENOUS BLOOD BASE EXCESS 4.2 mmol/L; VENOUS BLOOD PCO2 51.2 mmHg (35-63); VENOUS BLOOD PH 7.39 (7.30-7.42)
[2018-04-09 16:10] LABS: ALANINE AMINOTRANSFERASE 28 U/L (9-52); ALBUMIN 3.8 g/dL (3.5-5.0); ALKALINE PHOSPHATASE 175 U/L (38-126); ANION GAP 17 (5-19); ASPARTATE AMINO TRANSFERASE 25 U/L (14-36); BILIRUBIN,TOTAL 2.1 mg/dL (0.2-1.3); BLOOD UREA NITROGEN 84 mg/dL (7-20); CALCIUM 9.4 mg/dL (8.4-10.2); CARBON DIOXIDE 27 mmol/L (22-30); CHLORIDE 98 mmol/L (98-107); CREATINE KINASE 68 U/L (30-135); GLUCOSE 96 mg/dL (75-110); POTASSIUM 3.1 mmol/L (3.6-5.0); SODIUM 141.9 mmol/L (137-145); TOTAL PROTEIN 7.5 g/dL (6.3-8.2)
[2018-04-09 16:13] LABS: INTERNATIONAL RATION (INR) 5.65
[2018-04-09 16:21] LABS: CREATINE KINASE MB 1.12 ng/mL (<4.55); TROPONIN I 0.017 ng/mL
[2018-04-09] MEDS ORDERED: POTASSIUM CHLORIDE 10 MEQ CAPSULE.ER PO ONE ×2 (16:22→22:30)
[2018-04-09] MEDS ORDERED: FUROSEMIDE INJ/PF 20 MG/2 ML SDV IV ONE (16:34)
[2018-04-09] MEDS ORDERED: ONDANSETRON HCL INJ/PF 4 MG/2 ML SDV IV ONE (18:21)
--- NOTE | 2018-04-09 18:27 | PDOC H&P ---
History of Present Illness Admission Date/PCP: 04/09/18 17:02 CODY MEHTA MD Patient complains of: Shortness of breath. History of Present Illness: NAYELI MCKEON is a 73 year old female who states that she has had increasing difficulty with swelling over the past few days. In the past 2 days in particular she has had increasing shortness of breath. She denies chest pain. Past Medical History Cardiac Medical History: Reports: Atrial Fibrillation, Congestive Heart Failure , Coronary Artery Disease, Myocardial Infarction, Hyperlipidema, Hypertension Pulmonary Medical History: Reports: Sleep Apnea EENT Medical History: Reports: None Neurological Medical History: Reports: Ischemic CVA, Seizures Endocrine Medical History: Reports: None Renal/ Medical History: Reports: Chronic Kidney Disease GI Medical History: Reports: Gastroesophageal Reflux Disease Psychiatric Medical History: Reports: Dementia, Depression Past Surgical History Past Surgical History: Reports: Cardiac Catheterization Social History Smoking Status: Unknown if Ever Smoked Frequency of Alcohol Use: None Family History Family History: Reviewed & Not Pertinent, Hypertension Parental Family History Reviewed: Yes Children Family History Reviewed: Yes Sibling(s) Family History Reviewed.: Yes Medication/Allergy Allergies/Adverse Reactions: No Known Allergies Allergy (Verified 08/07/17 08:51) Review of Systems Constitutional: ABSENT: anorexia, fatigue, fever(s), night sweats Eyes: ABSENT: visual disturbances Ears: ABSENT: hearing changes Nose, Mouth, and Throat: ABSENT: mouth pain, sore throat, vertigo Cardiovascular: PRESENT: dyspnea on exertion, edema, orthropnea. ABSENT: chest pain, palpitations Respiratory: PRESENT: dyspnea. ABSENT: cough, hemoptysis, sputum Gastrointestinal: ABSENT: bloating, constipation, diarrhea, heartburn, hematemesis, nausea Musculoskeletal: ABSENT: back pain, deformity, joint swelling Integumentary: PRESENT: diaphoresis. ABSENT: lesions, rash Neurological: PRESENT: tremor(s). ABSENT: abnormal gait, dizziness Endocrine: ABSENT: cold intolerance, polyphagia, polyuria Physical Exam Vital Signs: Temp Pulse Resp BP Pulse Ox 97.6 F 77 19 109/81 93 04/09/18 12:51 04/09/18 12:51 04/09/18 17:00 04/09/18 15:24 04/09/18 17:00 General appearance: PRESENT: no acute distress, cooperative, morbidly obese Head exam: PRESENT: atraumatic, normocephalic Respiratory exam: PRESENT: other - No increased work of breathing. No wheezes, rales, or rhonchi.. ABSENT: wheezes Cardiovascular exam: PRESENT: rubs, other. ABSENT: gallop, RRR, systolic murmur Pulses: PRESENT: other - Diminished distal pulses. GI/Abdominal exam: PRESENT: soft, other - The abdomen is morbidly obese. Bowel sounds are distant. I am unable to evaluate the abdomen for organomegaly, masses , or hernias.. ABSENT: tenderness Rectal exam: PRESENT: deferred Extremities exam: PRESENT: pedal edema, +2 edema. ABSENT: calf tenderness, clubbing Musculoskeletal exam: PRESENT: normal inspection. ABSENT: deformity, dislocation, tenderness Neurological exam: PRESENT: alert, awake, oriented to person, oriented to place , oriented to time, oriented to situation, CN II-XII grossly intact. ABSENT: motor sensory deficit Psychiatric exam: PRESENT: appropriate affect, normal mood Skin exam: PRESENT: dry, intact, warm Results Laboratory Results: 04/09/18 14:30 WBC 4.1 RBC 4.11 Hgb 10.5 L Hct 31.3 L MCV 76 L MCH 25.5 L MCHC 33.4 RDW 21.3 H Plt Count 270 Total Counted 100 Seg Neuts % (Manual) 72 Lymphocytes % (Manual) 19 Monocytes % (Manual) 9 Eosinophils % (Manual) 0 Basophils % (Manual) 0 Abs Neuts (Manual) 3.0 Abs Lymphs (Manual) 0.8 Abs Monocytes (Manual) 0.4 Absolute Eos (Manual) 0.0 Abs Basophils (Manual) 0.0 Toxic Granulation SLIGHT Platelet Comment ADEQUATE Hypochromasia SLIGHT Poikilocytosis SLIGHT Anisocytosis 2+ Microcytosis SLIGHT Ovalocytes SLIGHT Schistocytes SLIGHT 04/09/18 04/09/18 04/09/18 14:30 14:30 15:36 WBC 4.1 RBC 4.11 Hgb 10.5 L Hct 31.3 L MCV 76 L MCH 25.5 L MCHC 33.4 RDW 21.3 H Plt Count 270 Total Counted 100 Seg Neuts % (Manual) 72 Lymphocytes % (Manual) 19 Monocytes % (Manual) 9 Eosinophils % (Manual) 0 Basophils % (Manual) 0 Abs Neuts (Manual) 3.0 Abs Lymphs (Manual) 0.8 Abs Monocytes (Manual) 0.4 Absolute Eos (Manual) 0.0 Abs Basophils (Manual) 0.0 Toxic Granulation SLIGHT Platelet Comment ADEQUATE Hypochromasia SLIGHT Poikilocytosis SLIGHT Anisocytosis 2+ Microcytosis SLIGHT Ovalocytes SLIGHT Schistocytes SLIGHT Sodium 141.9 Potassium 3.1 L Chloride 98 Carbon Dioxide 27 Anion Gap 17 BUN 84 H Creatinine 2.72 H Est GFR ( Amer) 21 L Est GFR (Non-Af Amer) 17 L Glucose 96 Lactic Acid 2.8 H Calcium 9.4 Total Bilirubin 2.1 H Direct Bilirubin 1.0 H AST 25 ALT 28 Alkaline Phosphatase 175 H Creatine Kinase 68 CK-MB (CK-2) Troponin I Total Protein 7.5 Albumin 3.8 04/09/18 15:36 WBC RBC Hgb Hct MCV MCH MCHC RDW Plt Count Total Counted Seg Neuts % (Manual) Lymphocytes % (Manual) Monocytes % (Manual) Eosinophils % (Manual) Basophils % (Manual) Abs Neuts (Manual) Abs Lymphs (Manual) Abs Monocytes (Manual) Absolute Eos (Manual) Abs Basophils (Manual) Toxic Granulation Platelet Comment Hypochromasia Poikilocytosis Anisocytosis Microcytosis Ovalocytes Schistocytes Sodium Potassium Chloride Carbon Dioxide Anion Gap BUN Creatinine Est GFR ( Amer) Est GFR (Non-Af Amer) Glucose Lactic Acid Calcium Total Bilirubin Direct Bilirubin AST ALT Alkaline Phosphatase Creatine Kinase CK-MB (CK-2) 1.12 Troponin I 0.017 Total Protein Albumin Impressions: Chest X-Ray 04/09/18 13:00 IMPRESSION: CARDIAC ENLARGEMENT. VASCULAR CONGESTION. Assessment & Plan - Diagnosis (1) Congestive heart failure Qualifiers: Heart failure type: unspecified Heart failure chronicity: acute Qualified Code(s): I50.9 - Heart failure, unspecified (2) Renal failure (ARF), acute on chronic Qualifiers: Acute renal failure type: unspecified Chronic kidney disease stage: unspecified stage Qualified Code(s): N17.9 - Acute kidney failure, unspecified ; N18.9 - Chronic kidney disease, unspecified; N18.9 - Chronic kidney disease, unspecified (4) Coronary artery disease Qualifiers: Coronary Disease-Associated Artery/Lesion type: unspecified vessel or lesion type (5) Dementia Qualifiers: Dementia type: unspecified type Dementia behavioral disturbance: with behavioral disturbance Qualified Code(s): F03.91 - Unspecified dementia with behavioral disturbance (7) Hypertension Qualifiers: Hypertension type: essential hypertension Qualified Code(s): I10 - Essential (primary) hypertension (8) Iron deficiency anemia Qualifiers: Iron deficiency anemia type: unspecified iron deficiency Qualified Code(s) : D50.9 - Iron deficiency anemia, unspecified - Time Time Spent: Greater than 70 Minutes Medications reviewed and adjusted accordingly: Yes - Inpatient Certification Based on my medical assessment, after consideration of the patient's comorbidities, presenting symptoms, or acuity I expect that the services needed warrant INPATIENT care.: Yes I certify that my determination is in accordance with my understanding of Medicare's requirements for reasonable and necessary INPATIENT services [42 CFR 412.3e].: Yes Medical Necessity: Significant Comorbidiites Make Outpatient Treatment Too Risky , Need For Continuous Telemetry Monitoring, Risk of Complication if Not Cared For in Hospital - Plan Summary Plan Summary: The patient will be admitted to a telemetry bed. She will be diuresed. Her volume status will be carefully monitored. She will be continued on her home medications as possible. Her creatinine and electrolytes will be carefully monitored. She will be ruled out for DC by EKG and enzyme criteria. she will have an echocardiogram performed to determine an ejection fraction.
[2018-04-09] MEDS ORDERED: DEXTROSE 40% GEL 15 GM TUBE PO PRN ×2 (18:30)
[2018-04-09] MEDS ORDERED: DEXTROSE 50%-WATER 25 GM/50 ML DISP.SYRIN IV PRN ×2 (18:30)
[2018-04-09] MEDS ORDERED: GLUCAGON,HUMAN RECOMB 1 MG INJ SUBCUT PRN (18:30)
--- NOTE | 2018-04-09 19:04 | RADIOLOGY REPORT (SQ) ---
EXAM DESCRIPTION: KUB/ABDOMEN (SINGLE VIEW) COMPLETED DATE/TIME: 04/09/2018 6:45 pm REASON FOR STUDY: vomiting COMPARISON: None. NUMBER OF VIEWS: One view. TECHNIQUE: Supine radiographic image of the abdomen acquired. LIMITATIONS: None. FINDINGS: BOWEL GAS PATTERN: Normal bowel gas pattern. No dilated loops. CALCIFICATIONS: No suspicious calcifications. SOFT TISSUES: No gross mass or suggestion of organomegaly. HARDWARE: None in the abdomen. BONES: No acute fracture. No worrisome bone lesions. OTHER: No other significant finding. IMPRESSION: NO RADIOGRAPHIC EVIDENCE FOR ACUTE ABDOMINAL DISEASE. TECHNICAL DOCUMENTATION: JOB ID: [id number] [employer]- All Rights Reserved Reading location - IP/workstation name: [email or web address]
--- NOTE | 2018-04-09 20:34 | EKG REPORT ---
SEVERITY:- ABNORMAL ECG - SINUS RHYTHM PAIRED VENTRICULAR PREMATURE COMPLEXES PROBABLE LEFT ATRIAL ABNORMALITY NONSPECIFIC IVCD WITH LAD CONSIDER INFERIOR OK : Confirmed by: Edis Moody 09-Apr-2018 17:33:53
[2018-04-09] MEDS: POTASSIUM CHLORIDE 10 MEQ CAPSULE.ER PO SCH (22:04)
[2018-04-09] MEDS: FUROSEMIDE INJ/PF 40 MG/4 ML SDV IV SCH (22:04)
[2018-04-09] MEDS: POTASSI CL 20 MEQ/50 ML RIDER 20 MEQ/50 ML RTUPB IV SCH ×2 (22:05→22:46)
[2018-04-10 05:56] LABS: APPEARANCE,URINE CLOUDY; BILIRUBIN,URINE NEGATIVE (NEGATIVE); GLUCOSE, URINE NEGATIVE (NEGATIVE); KETONES,URINE NEGATIVE (NEGATIVE); LEUKOCYTE ESTERASE,URINE LARGE (NEGATIVE); NITRITE,URINE NEGATIVE (NEGATIVE); PROTEIN,URINE 100 mg/dL (NEGATIVE); URINE SPECIFIC GRAVITY 1.011
[2018-04-10 05:57] LABS: COLOR,URINE DARK YELLOW
[2018-04-10 07:05] LABS: ALANINE AMINOTRANSFERASE 35 U/L (9-52); ALBUMIN 3.6 g/dL (3.5-5.0); ALKALINE PHOSPHATASE 173 U/L (38-126); ASPARTATE AMINO TRANSFERASE 23 U/L (14-36); BILIRUBIN,DIRECT 1.4 mg/dL (0.0-0.4); BILIRUBIN,TOTAL 2.9 mg/dL (0.2-1.3); BLOOD UREA NITROGEN 86 mg/dL (7-20); CALCIUM 9.4 mg/dL (8.4-10.2); GLUCOSE 62 mg/dL (75-110); TOTAL PROTEIN 6.8 g/dL (6.3-8.2); TRIGLYCERIDES 98 mg/dL (<150)
[2018-04-10 07:10] LABS: CARBON DIOXIDE 20 mmol/L (22-30); CHLORIDE 102 mmol/L (98-107); SODIUM 143.4 mmol/L (137-145)
[2018-04-10 07:16] LABS: DIRECT LDL 39 mg/dL (<100)
[2018-04-10 07:24] LABS: HEMATOCRIT 31.7 % (36.0-47.0); HEMOGLOBIN 10.4 g/dL (12.0-15.5); MEAN CORPUSCULAR HEMOGLOBIN 25.1 pg (27.0-33.4); MEAN CORPUSCULAR HGB CONC 32.8 g/dL (32.0-36.0); MEAN CORPUSCULAR VOLUME 77 fl (80-97); PLATELET COUNT 171 10^3/uL (150-450); RED BLOOD COUNT 4.13 10^6/uL (3.72-5.28); RED CELL DISTRIBUTION WIDTH 20.2 % (11.5-14.0); WHITE BLOOD COUNT 4.4 10^3/uL (4.0-10.5)
[2018-04-10 07:30] LABS: POTASSIUM 5.3 mmol/L (3.6-5.0)
[2018-04-10 07:31] LABS: ANION GAP 21 (5-19)
[2018-04-10 08:36] LABS: ABSOLUTE LYMPHOCYTES# (MANUAL) 1.1 10^3/uL (0.5-4.7); ABSOLUTE MONOCYTES # (MANUAL) 0.2 10^3/uL (0.1-1.4); ABSOLUTE NEUTROPHILS# (MANUAL) 3.1 10^3/uL (1.7-8.2); BASOPHILS % (MANUAL) 0 % (0-2); EOSINOPHILS % (MANUAL) 0 % (0-6); LYMPHOCYTES % (MANUAL) 25 % (13-45); MONOCYTES % (MANUAL) 4 % (3-13); SEGMENTED NEUTROPHILS % (MAN) 71 % (42-78); TOTAL CELLS COUNTED 100
[2018-04-10 08:37] LABS: HYPOCHROMASIA 1+
[2018-04-10 08:38] LABS: ANISOCYTOSIS 2+; OVALOCYTES 2+; PLATELET COMMENT ADEQUATE; POIKILOCYTOSIS 2+; TARGET CELLS SLIGHT
--- NOTE | 2018-04-10 08:54 | RADIOLOGY REPORT (SQ) ---
EXAM DESCRIPTION: CHEST SINGLE VIEW COMPLETED DATE/TIME: 04/10/2018 7:40 am REASON FOR STUDY: chf COMPARISON: 04/09/2018. EXAM PARAMETERS: NUMBER OF VIEWS: One view. TECHNIQUE: Single frontal radiographic view of the chest acquired. RADIATION DOSE: NA LIMITATIONS: None. FINDINGS: LUNGS AND PLEURA: No opacities, masses or pneumothorax. No pleural effusion. MEDIASTINUM AND HILAR STRUCTURES: No masses. Contour normal. HEART AND VASCULAR STRUCTURES: Cardiomegaly unchanged. Decrease in the vascular congestion. BONES: No acute findings. HARDWARE: Defibrillator. OTHER: No other significant finding. IMPRESSION: STABLE CARDIOMEGALY. MILD VASCULAR CONGESTION HAS IMPROVED. TECHNICAL DOCUMENTATION: JOB ID: [id number] [employer]- All Rights Reserved Reading location - IP/workstation name: [email or web address]
[2018-04-10] MEDS ORDERED: ENOXAPARIN SODIUM INJ 30 MG/0.3 ML DISP.SYRIN SUBCUT SCH (10:00)
[2018-04-10] MEDS: FUROSEMIDE INJ/PF 40 MG/4 ML SDV IV SCH ×2 (10:49→22:06)
[2018-04-10] MEDS: POTASSIUM CHLORIDE 10 MEQ CAPSULE.ER PO SCH ×2 (12:55→22:02)
[2018-04-10 18:35] LABS: INTERNATIONAL RATION (INR) 5.71; PROTHROMBIN TIME 54.1 SEC (11.4-15.4)
[2018-04-10] MEDS ORDERED: PHYTONADIONE 5 MG TABLET PO ONE (18:40)
[2018-04-10] MEDS ORDERED: PHYTONADIONE 5 MG TABLET ONE (19:02)
--- NOTE | 2018-04-11 05:41 | PDOC PROGRESS REPORT ---
Subjective Progress Note for:: 04/10/18 Subjective:: The patient complains of a cough today. Reason For Visit: ACUTE RENAL FAILURE SUPERIMPOSED ON CHRONIC KIDNEY Physical Exam Vital Signs: Temp Pulse Resp BP Pulse Ox 97.2 F 68 19 111/69 100 04/11/18 03:05 04/11/18 03:05 04/11/18 03:05 04/11/18 03:05 04/11/18 03:05 Intake & Output 04/09/18 04/10/18 04/11/18 06:59 06:59 06:59 Intake Total 17 645 Output Total 100 400 Balance -83 245 Weight 83.7 kg 83.7 kg General appearance: PRESENT: cooperative Respiratory exam: PRESENT: rales, other - No increased work of breathing.. ABSENT: rhonchi, wheezes Cardiovascular exam: PRESENT: RRR. ABSENT: gallop, rubs, systolic murmur GI/Abdominal exam: PRESENT: normal bowel sounds, soft. ABSENT: hernia, mass, organolmegaly, tenderness Extremities exam: PRESENT: +2 edema. ABSENT: clubbing, joint swelling Neurological exam: PRESENT: alert, awake, oriented to person, CN II-XII grossly intact. ABSENT: motor sensory deficit Skin exam: PRESENT: dry, intact, warm Results Laboratory Results: 04/10/18 05:55 04/10/18 05:55 04/10/18 04/10/18 04/10/18 05:17 05:55 05:55 WBC 4.4 RBC 4.13 Hgb 10.4 L Hct 31.7 L MCV 77 L MCH 25.1 L MCHC 32.8 RDW 20.2 H Plt Count 171 Seg Neutrophils % Not Reportable Lymphocytes % Not Reportable Monocytes % Not Reportable Eosinophils % Not Reportable Basophils % Not Reportable Absolute Neutrophils Not Reportable Absolute Lymphocytes Not Reportable Absolute Monocytes Not Reportable Absolute Eosinophils Not Reportable Absolute Basophils Not Reportable Sodium 143.4 Potassium 5.3 H D Chloride 102 Carbon Dioxide 20 L Anion Gap 21 H BUN 86 H Creatinine 2.77 H Est GFR ( Amer) 20 L Est GFR (Non-Af Amer) 17 L Glucose 62 L Calcium 9.4 Magnesium 2.0 Total Bilirubin 2.9 H AST 23 ALT 35 Alkaline Phosphatase 173 H Total Protein 6.8 Albumin 3.6 Triglycerides 98 Cholesterol 105.40 LDL Cholesterol Direct 39 VLDL Cholesterol 20.0 HDL Cholesterol 43 Urine Color DARK YELLOW Urine Appearance CLOUDY Urine pH 5.0 Ur Specific [place] 1.011 Urine Protein 100 H Urine Glucose (UA) NEGATIVE Urine Ketones NEGATIVE Urine Blood LARGE H Urine Nitrite NEGATIVE Ur Leukocyte Esterase LARGE H Urine WBC (Auto) >182 Urine RBC (Auto) >182 04/09/18 04/10/18 04/10/18 18:00 00:22 05:55 Troponin I 0.017 0.020 0.017 Impressions: KUB X-Ray 04/09/18 00:00 IMPRESSION: NO RADIOGRAPHIC EVIDENCE FOR ACUTE ABDOMINAL DISEASE. Chest X-Ray 04/10/18 07:00 IMPRESSION: STABLE CARDIOMEGALY. MILD VASCULAR CONGESTION HAS IMPROVED. Assessment & Plan - Diagnosis (1) Congestive heart failure Qualifiers: Heart failure type: combined systolic and diastolic Heart failure chronicity: acute Qualified Code(s): I50.41 - Acute combined systolic ( congestive) and diastolic (congestive) heart failure Is this a current diagnosis for this admission?: Yes Plan: EF 15-20% Grade 2/4 diastolic dysfunction. Diuresis as possible. (2) Renal failure (ARF), acute on chronic Qualifiers: Acute renal failure type: unspecified Chronic kidney disease stage: stage 4 (severe) Qualified Code(s): N17.9 - Acute kidney failure, unspecified; N18.4 - Chronic kidney disease, stage 4 (severe); N18.4 - Chronic kidney disease , stage 4 (severe); N18.4 - Chronic kidney disease, stage 4 (severe); N18.4 - Chronic kidney disease, stage 4 (severe) Is this a current diagnosis for this admission?: Yes Plan: Monitor. (3) Chronic a-fib Is this a current diagnosis for this admission?: Yes Plan: Rate is controlled. (4) Coronary artery disease Qualifiers: Coronary Disease-Associated Artery/Lesion type: unspecified vessel or lesion type [place] vs. transplanted heart: [place] heart Associated angina: without angina Qualified Code(s): I25.10 - Atherosclerotic heart disease of [place] coronary artery without angina pectoris Is this a current diagnosis for this admission?: Yes Plan: Continue home medications. (5) Dementia Qualifiers: Dementia type: unspecified type Dementia behavioral disturbance: with behavioral disturbance Qualified Code(s): F03.91 - Unspecified dementia with behavioral disturbance Is this a current diagnosis for this admission?: Yes Plan: Noted. Mental Status at baseline. (6) History of implantable cardioverter-defibrillator (ICD) placement Is this a current diagnosis for this admission?: Yes Plan: Noted (7) Hypertension Qualifiers: Hypertension type: essential hypertension Qualified Code(s): I10 - Essential (primary) hypertension Is this a current diagnosis for this admission?: Yes Plan: Continue home medications. (8) Iron deficiency anemia Qualifiers: Iron deficiency anemia type: unspecified iron deficiency Qualified Code(s) : D50.9 - Iron deficiency anemia, unspecified Is this a current diagnosis for this admission?: Yes Plan: Supplement. - Time Time Spent with patient: 25-34 minutes - Inpatient Certification Based on my medical assessment, after consideration of the patient's comorbidities, presenting symptoms, or acuity I expect that the services needed warrant INPATIENT care.: Yes I certify that my determination is in accordance with my understanding of Medicare's requirements for reasonable and necessary INPATIENT services [42 CFR 412.3e].: Yes Medical Necessity: Significant Comorbidiites Make Outpatient Treatment Too Risky , Need Close Monitoring Due to Risk of Patient Decompensation, Need For IV Fluids, Need For Continuous Telemetry Monitoring, Risk of Complication if Not Cared For in Hospital
[2018-04-11 07:18] LABS: INTERNATIONAL RATION (INR) 4.83; PROTHROMBIN TIME 47.4 SEC (11.4-15.4)
[2018-04-11 07:50] LABS: ANION GAP 16 (5-19); BLOOD UREA NITROGEN 94 mg/dL (7-20); CALCIUM 9.5 mg/dL (8.4-10.2); CARBON DIOXIDE 24 mmol/L (22-30); CHLORIDE 100 mmol/L (98-107); GLUCOSE 88 mg/dL (75-110); SODIUM 139.6 mmol/L (137-145)
[2018-04-11 08:34] LABS: HEMATOCRIT 30.5 % (36.0-47.0); HEMOGLOBIN 9.9 g/dL (12.0-15.5); MEAN CORPUSCULAR HEMOGLOBIN 24.6 pg (27.0-33.4); MEAN CORPUSCULAR HGB CONC 32.5 g/dL (32.0-36.0); MEAN CORPUSCULAR VOLUME 76 fl (80-97); PLATELET COUNT 166 10^3/uL (150-450); RED BLOOD COUNT 4.05 10^6/uL (3.72-5.28); RED CELL DISTRIBUTION WIDTH 20.1 % (11.5-14.0); WHITE BLOOD COUNT 3.9 10^3/uL (4.0-10.5)
[2018-04-11 09:16] LABS: ABSOLUTE LYMPHOCYTES# (MANUAL) 1.2 10^3/uL (0.5-4.7); ABSOLUTE MONOCYTES # (MANUAL) 0.2 10^3/uL (0.1-1.4); ABSOLUTE NEUTROPHILS# (MANUAL) 2.5 10^3/uL (1.7-8.2); BASOPHILS % (MANUAL) 0 % (0-2); EOSINOPHILS % (MANUAL) 0 % (0-6); LYMPHOCYTES % (MANUAL) 32 % (13-45); MONOCYTES % (MANUAL) 4 % (3-13); SEGMENTED NEUTROPHILS % (MAN) 64 % (42-78); TOTAL CELLS COUNTED 100
[2018-04-11 09:18] LABS: ANISOCYTOSIS 2+; HYPOCHROMASIA 1+; OVALOCYTES 2+; PLATELET COMMENT ADEQUATE; POIKILOCYTOSIS 3+; POLYCHROMASIA SLIGHT; SCHISTOCYTES SLIGHT; TARGET CELLS 1+
[2018-04-11] MEDS: FUROSEMIDE INJ/PF 40 MG/4 ML SDV IV SCH ×2 (10:36→22:18)
[2018-04-11] MEDS: POTASSIUM CHLORIDE 10 MEQ CAPSULE.ER PO SCH ×2 (10:36→22:18)
--- NOTE | 2018-04-11 15:09 | PDOC PROGRESS REPORT ---
Subjective Progress Note for:: 04/11/18 Subjective:: The patient's family states that she is confused today. No other new complaints. Was awake, and alert for me. Reason For Visit: ACUTE RENAL FAILURE SUPERIMPOSED ON CHRONIC KIDNEY Physical Exam Vital Signs: Temp Pulse Resp BP Pulse Ox 97.4 F 66 22 H 106/67 98 04/11/18 11:13 04/11/18 11:13 04/11/18 11:13 04/11/18 11:13 04/11/18 11:13 Intake & Output 04/10/18 04/11/18 04/12/18 06:59 06:59 06:59 Intake Total 17 645 444 Output Total 100 600 50 Balance -83 45 394 Weight 83.7 kg 83.4 kg General appearance: PRESENT: no acute distress, cooperative Respiratory exam: PRESENT: other - No increased work of breathing. No wheezes, rales, or rhonchi. No tactile fremitus. Cardiovascular exam: PRESENT: RRR, other. ABSENT: gallop, rubs, systolic murmur Pulses: PRESENT: normal carotid pulses, normal dorsalis pedis pul GI/Abdominal exam: PRESENT: normal bowel sounds, soft. ABSENT: guarding, mass, organolmegaly, tenderness Skin exam: PRESENT: dry, intact, warm Results Laboratory Results: 04/11/18 06:56 04/11/18 06:56 04/11/18 04/11/18 06:56 06:56 WBC 3.9 L RBC 4.05 Hgb 9.9 L Hct 30.5 L MCV 76 L MCH 24.6 L MCHC 32.5 RDW 20.1 H Plt Count 166 Seg Neutrophils % Not Reportable Lymphocytes % Not Reportable Monocytes % Not Reportable Eosinophils % Not Reportable Basophils % Not Reportable Absolute Neutrophils Not Reportable Absolute Lymphocytes Not Reportable Absolute Monocytes Not Reportable Absolute Eosinophils Not Reportable Absolute Basophils Not Reportable Sodium 139.6 Potassium 5.0 Chloride 100 Carbon Dioxide 24 Anion Gap 16 BUN 94 H Creatinine 3.08 H Est GFR ( Amer) 18 L Est GFR (Non-Af Amer) 15 L Glucose 88 Calcium 9.5 04/09/18 04/10/18 04/10/18 18:00 00:22 05:55 Troponin I 0.017 0.020 0.017 Impressions: KUB X-Ray 04/09/18 00:00 IMPRESSION: NO RADIOGRAPHIC EVIDENCE FOR ACUTE ABDOMINAL DISEASE. Chest X-Ray 04/10/18 07:00 IMPRESSION: STABLE CARDIOMEGALY. MILD VASCULAR CONGESTION HAS IMPROVED. Assessment & Plan - Diagnosis (1) Congestive heart failure Qualifiers: Heart failure type: combined systolic and diastolic Heart failure chronicity: acute Qualified Code(s): I50.41 - Acute combined systolic ( congestive) and diastolic (congestive) heart failure Is this a current diagnosis for this admission?: Yes Plan: EF 15-20% Grade 2/4 diastolic dysfunction. Diuresis as possible. Blood pressures too low for diuresis. (2) Renal failure (ARF), acute on chronic Qualifiers: Acute renal failure type: unspecified Chronic kidney disease stage: stage 4 (severe) Qualified Code(s): N17.9 - Acute kidney failure, unspecified; N18.4 - Chronic kidney disease, stage 4 (severe); N18.4 - Chronic kidney disease , stage 4 (severe); N18.4 - Chronic kidney disease, stage 4 (severe); N18.4 - Chronic kidney disease, stage 4 (severe) Is this a current diagnosis for this admission?: Yes Plan: Monitor. Creatinine increasing. Avoid nephrotoxic medications. Likely related to congestive heart failure. (3) Chronic a-fib Is this a current diagnosis for this admission?: Yes Plan: Rate is controlled. (4) Coronary artery disease Qualifiers: Coronary Disease-Associated Artery/Lesion type: unspecified vessel or lesion type [place] vs. transplanted heart: [place] heart Associated angina: without angina Qualified Code(s): I25.10 - Atherosclerotic heart disease of [place] coronary artery without angina pectoris Is this a current diagnosis for this admission?: Yes Plan: Continue home medications. (5) Dementia Qualifiers: Dementia type: unspecified type Dementia behavioral disturbance: with behavioral disturbance Qualified Code(s): F03.91 - Unspecified dementia with behavioral disturbance Is this a current diagnosis for this admission?: Yes Plan: Noted. Family feels that she is more confused today. Seems unchanged to me. (6) History of implantable cardioverter-defibrillator (ICD) placement Is this a current diagnosis for this admission?: Yes Plan: Noted. (7) Hypertension Qualifiers: Hypertension type: essential hypertension Qualified Code(s): I10 - Essential (primary) hypertension Is this a current diagnosis for this admission?: Yes (8) Iron deficiency anemia Qualifiers: Iron deficiency anemia type: unspecified iron deficiency Qualified Code(s) : D50.9 - Iron deficiency anemia, unspecified Is this a current diagnosis for this admission?: Yes (9) UTI (urinary tract infection) due to Enterococcus Is this a current diagnosis for this admission?: Yes Plan: Urine cultures positife for gram negative rods. Awaiting ID and specificities. Antibiotics. (10) Supratherapeutic INR Is this a current diagnosis for this admission?: Yes Plan: Hold coumadin and vitamin k given yesterday. INR down today, but still high. I will give more vitamin k. Monitor.
[2018-04-11] MEDS ORDERED: PIPERACILLIN/TAZOBACTAM 3.375 GM VIAL IV SCH (15:15)
[2018-04-11] MEDS ORDERED: PHYTONADIONE 5 MG TABLET PO ONE (16:00)
[2018-04-11] MEDS: PIPERACILLIN SODIUM/TAZOBACTAM 2.25 GM in NORMAL SALINE 50 ML IV SCH (18:30)
[2018-04-12] MEDS: PIPERACILLIN SODIUM/TAZOBACTAM 2.25 GM in NORMAL SALINE 50 ML IV SCH ×2 (01:51→09:38)
[2018-04-12] MEDS ORDERED: PROMETHAZINE HCL INJ 25 MG/1 ML VIAL IV PRN (04:43)
[2018-04-12] MEDS: POTASSIUM CHLORIDE 10 MEQ CAPSULE.ER PO SCH (10:00)
[2018-04-12 10:13] LABS: PROTHROMBIN TIME 53.6 SEC (11.4-15.4)
[2018-04-12 10:18] LABS: HEMATOCRIT 31.9 % (36.0-47.0); HEMOGLOBIN 10.2 g/dL (12.0-15.5); MEAN CORPUSCULAR HEMOGLOBIN 24.5 pg (27.0-33.4); MEAN CORPUSCULAR HGB CONC 32.1 g/dL (32.0-36.0); MEAN CORPUSCULAR VOLUME 76 fl (80-97); PLATELET COUNT 221 10^3/uL (150-450); RED BLOOD COUNT 4.17 10^6/uL (3.72-5.28); RED CELL DISTRIBUTION WIDTH 20.5 % (11.5-14.0); WHITE BLOOD COUNT 4.6 10^3/uL (4.0-10.5)
[2018-04-12 10:38] LABS: ANION GAP 16 (5-19); BLOOD UREA NITROGEN 98 mg/dL (7-20); CALCIUM 9.8 mg/dL (8.4-10.2); CARBON DIOXIDE 25 mmol/L (22-30); CHLORIDE 99 mmol/L (98-107); GLUCOSE 104 mg/dL (75-110); POTASSIUM 4.7 mmol/L (3.6-5.0); SODIUM 139.7 mmol/L (137-145)
[2018-04-12] MEDS: FUROSEMIDE INJ/PF 40 MG/4 ML SDV IV SCH (11:05)
[2018-04-12 11:06] LABS: ABSOLUTE LYMPHOCYTES# (MANUAL) 1.2 10^3/uL (0.5-4.7); ABSOLUTE MONOCYTES # (MANUAL) 0.2 10^3/uL (0.1-1.4); ABSOLUTE NEUTROPHILS# (MANUAL) 3.1 10^3/uL (1.7-8.2); BASOPHILS % (MANUAL) 1 % (0-2); EOSINOPHILS % (MANUAL) 0 % (0-6); LYMPHOCYTES % (MANUAL) 25 % (13-45); MONOCYTES % (MANUAL) 5 % (3-13); NUCLEATED RED BLOOD CELLS 2 /100 WBC (0); SEGMENTED NEUTROPHILS % (MAN) 67 % (42-78); TOTAL CELLS COUNTED 100
[2018-04-12 11:07] LABS: ANISOCYTOSIS 3+; HYPOCHROMASIA 1+; OVALOCYTES 1+; PLATELET COMMENT ADEQUATE; POIKILOCYTOSIS 2+; POLYCHROMASIA SLIGHT; SCHISTOCYTES SLIGHT; TARGET CELLS 1+
--- NOTE | 2018-04-12 17:32 | PDOC CONSULTATION ---
Consultation Consult Date: 04/12/18 Consult reason:: blayne History of Present Illness Admission Date/PCP: 04/09/18 17:02 CODY MEHTA MD History of Present Illness: NAYELI MCKEON is a 73 year old female female with a history of A. 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 In the ER the family told the ER physcian that they noticed increased swelling and weakness in her lower extremities for 3 weeks. Labs were drawn in the ER that showed a creatinine of 2.7 and a potassium of 3.1. She was also found to be fluid overloaded with an elevated BNP and chest x-ray that showed vascular congestion. In the hospital she was started on furosemide and potassium supplements. A couple days into the visit she was found to have an elevated creatinine in the 3s and she was also more confused according to the family. Blood and urine cultures were drawn. She was placed on piptazo for the UTI. During examination, a history was not able to be obtained. She was randomly answering questions yes or no. When asked the same ROS question she would give two opposite answers sometimes. History was obtained from prior notes, patient was AMS due to dementia so she was not a reliable patient. Past Medical History Cardiac Medical History: Reports: Atrial Fibrillation, Coronary Artery Disease, Hyperlipidemia, Myocardial Infarction Pulmonary Medical History: Reports: Sleep Apnea EENT Medical History: Reports: None Neurological Medical History: Reports: Ischemic CVA, Seizures Endocrine Medical History: Reports: None GI Medical History: Reports: Gastroesophageal Reflux Disease Psychiatric Medical History: Reports: Dementia, Depression Past Surgical History Past Surgical History: Reports: Cardiac Catheterization Social History Smoking Status: Unknown if Ever Smoked Frequency of Alcohol Use: None Hx Recreational Drug Use: No Hx Prescription Drug Abuse: No - Advance Directive Resuscitation Status: Full Code Family History Parental Family History Reviewed: No Children Family History Reviewed: NA Sibling(s) Family History Reviewed.: NA Medication/Allergy Home Medications: Aspirin [Ecotrin 81 mg EC Tablet] 81 mg PO DAILY 04/09/18 Carvedilol [Coreg 6.25 mg Tablet] 6.25 mg PO Q12 04/09/18 Cholecalciferol (Vitamin D3) [Vitamin D3 1000 Unit Tablet] 1,000 unit PO DAILY 04/09/18 Fluticasone/Vilanterol [Breo Ellipta 100-25 Mcg INH] 1 puff IH DAILY 04/09/18 Levetiracetam [Keppra 500 mg Tablet] 500 mg PO Q12 04/09/18 Lisinopril [Prinivil 5 mg Tablet] 5 mg PO DAILY 04/09/18 Melatonin [Melatonin 5 mg Tablet] 5 mg PO QHS 04/09/18 Metolazone [Zaroxolyn 2.5 mg Tablet] 2.5 mg PO DAILY 04/09/18 Rosuvastatin Calcium [Crestor 10 mg Tablet] 10 mg PO DAILY 04/09/18 Torsemide [Demadex 20 mg Tablet] 20 mg PO DAILY 04/09/18 Warfarin Sodium [Coumadin 3 mg Tablet] 3 mg PO DAILY 04/09/18 Allergies/Adverse Reactions: No Known Allergies Allergy (Verified 08/07/17 08:51) Review of Systems ROS unobtainable: Due to mental status Physical Exam Vital Signs: Temp Pulse Resp BP Pulse Ox 97.3 F 73 17 116/83 100 04/12/18 15:32 04/12/18 15:32 04/12/18 15:32 04/12/18 15:32 04/12/18 15:32 Intake & Output 04/11/18 04/12/18 04/13/18 06:59 06:59 06:59 Intake Total 645 1049 286 Output Total 600 650 100 Balance 45 399 186 Weight 83.4 kg 85 kg General appearance: PRESENT: no acute distress, obese Mouth exam: PRESENT: dry mucosa, neck supple. ABSENT: moist Neck exam: PRESENT: full ROM. ABSENT: JVD Respiratory exam: PRESENT: clear to auscultation meghna. ABSENT: accessory muscle use, crackles, decreased breath sounds, rales, rhonchi, wheezes Cardiovascular exam: PRESENT: +S1, +S2, systolic murmur GI/Abdominal exam: PRESENT: soft. ABSENT: ascites, diminished bowel sounds, distended, guarding, tenderness Extremities exam: PRESENT: tenderness. ABSENT: pedal edema, +1 edema, +2 edema Musculoskeletal exam: PRESENT: tenderness. ABSENT: normal inspection Neurological exam: PRESENT: alert, altered, awake Skin exam: PRESENT: dry, intact, warm. ABSENT: cyanosis Results Laboratory Results: 04/12/18 09:55 04/12/18 09:55 04/12/18 04/12/18 09:55 09:55 WBC 4.6 RBC 4.17 Hgb 10.2 L Hct 31.9 L MCV 76 L MCH 24.5 L MCHC 32.1 RDW 20.5 H Plt Count 221 Seg Neutrophils % Not Reportable Lymphocytes % Not Reportable Monocytes % Not Reportable Eosinophils % Not Reportable Basophils % Not Reportable Absolute Neutrophils Not Reportable Absolute Lymphocytes Not Reportable Absolute Monocytes Not Reportable Absolute Eosinophils Not Reportable Absolute Basophils Not Reportable Sodium 139.7 Potassium 4.7 Chloride 99 Carbon Dioxide 25 Anion Gap 16 BUN 98 H Creatinine 3.17 H Est GFR ( Amer) 17 L Est GFR (Non-Af Amer) 14 L Glucose 104 Calcium 9.8 04/09/18 04/10/18 04/10/18 18:00 00:22 05:55 Troponin I 0.017 0.020 0.017 Impressions: KUB X-Ray 04/09/18 00:00 IMPRESSION: NO RADIOGRAPHIC EVIDENCE FOR ACUTE ABDOMINAL DISEASE. Chest X-Ray 04/10/18 07:00 IMPRESSION: STABLE CARDIOMEGALY. MILD VASCULAR CONGESTION HAS IMPROVED. Assessment & Plan - Diagnosis (1) Congestive heart failure Qualifiers: Heart failure type: combined systolic and diastolic Heart failure chronicity: acute Qualified Code(s): I50.41 - Acute combined systolic ( congestive) and diastolic (congestive) heart failure Is this a current diagnosis for this admission?: Yes Plan: looks to have resolved, patient looks to actually be on dryer side, will stop furosemide (2) Renal failure (ARF), acute on chronic Qualifiers: Acute renal failure type: unspecified Chronic kidney disease stage: stage 4 (severe) Qualified Code(s): N17.9 - Acute kidney failure, unspecified; N18.4 - Chronic kidney disease, stage 4 (severe); N18.4 - Chronic kidney disease , stage 4 (severe); N18.4 - Chronic kidney disease, stage 4 (severe); N18.4 - Chronic kidney disease, stage 4 (severe) Is this a current diagnosis for this admission?: Yes Plan: nonoliguric, looked to intial come with an BLAYNE due to CHF, no looks to be on the dry side,with other underlining causes from UTI. Will d/c furosemide and gently rehydrate with NS at 50mL an hour for 1L. Adjust all medications for a GFR of less than 25. 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 (3) UTI (urinary tract infection) due to Enterococcus Is this a current diagnosis for this admission?: Yes Plan: Cultures are back, switching to cipro 250mg qd for 7 days. (4) Hypertension Qualifiers: Hypertension type: essential hypertension Qualified Code(s): I10 - Essential (primary) hypertension Is this a current diagnosis for this admission?: Yes Plan: controlled on no bp medications. (5) Hypokalemia Plan: looks to have resolved, will stop potassium replacement for now let the potassium come down some. (6) Iron deficiency anemia Qualifiers: Iron deficiency anemia type: unspecified iron deficiency Qualified Code(s) : D50.9 - Iron deficiency anemia, unspecified Is this a current diagnosis for this admission?: Yes Plan: will reassess iron studies since it has been over 3 months and previously she had a severally low iron saturation.
--- NOTE | 2018-04-12 18:38 | XCELERA REPORT ---
[address] [address] Transthoracic Echocardiogram Report Name: NAYELI MCKEON Age: 73 yrs Gender: Female : 1945 Patient Status: Inpatient Patient Location: [address] [place] [address] Study Date: 04/12/2018 01:38 PM Height: 64 in Weight: 177 lb BSA: 1.9 m2 Procedure: A complete two-dimensional transthoracic echocardiogram was performed (2D, M-mode, spectral and color flow Doppler). The study was technically adequate with some images being suboptimal in quality. Reason For Study: CHF exacerbation Ordering Physician: DEO ROBBINS Performed By: Salma Villarreal Interpretation Summary The Ejection Fraction estimate is <20% Left ventricular systolic function is severely reduced. The left ventricle is moderately dilated. Doppler measurements suggest pseudonormalized left ventricular relaxation, which is associated with grade II/IV or mild to moderate diastolic dysfunction There is severe global hypokinesis of the left ventricle. Regional wall motion abnormalities cannot be excluded due to limited visualization. The right ventricle is grossly normal size. The right ventricular systolic function is mild to moderately reduced. The left atrium is mildly dilated. Borderline right atrial enlargement. There is a mild amount of mitral regurgitation There is no mitral valve stenosis. No aortic regurgitation is present. There is no aortic valve stenosis There is a mild amount of tricuspid regurgitation There is mild pulmonary hypertension by echo Right ventricular systolic pressure is estimated to be elevated at 30-40mmHg. The aortic root is not well visualized but is probably normal size. The inferior vena cava appeared normal and decreased < 50% with respiration (RAP 10-15 mmHg) There is no pericardial effusion. Pacemaker wire noted. MMode/2D Measurements & Calculations RVDd: 3.6 cm LVIDd: 7.1 cm FS: 16.2 % Ao root diam: 2.7 cm IVSd: 0.56 cm LVIDs: 6.0 cm EDV(Teich): 264.4 ml Ao root area: 5.9 cm2 LVPWd: 0.60 cm ESV(Teich): 176.8 ml EF(Teich): 33.1 % LVOT diam: 1.8 cm LVOT area: 2.6 cm2 Doppler Measurements & Calculations MV E max felipa: MV dec slope: Ao V2 max: LV V1 max P.3 cm/sec 504.2 cm/sec2 110.6 cm/sec 2.5 mmHg MV A max felipa: MV dec time: 0.16 secAo max P.9 mmHgLV V1 max: 72.2 cm/sec DEO(V,D): 1.8 cm2 79.1 cm/sec MV E/A: 1.1 PA V2 max: PI max felipa: TR max felipa: 53.5 cm/sec 163.6 cm/sec 267.5 cm/sec PA max P.1 mmHg PI max P.7 mmHg TR max PG: PI dec slope: 28.6 mmHg 94.5 cm/sec2 Left Ventricle The left ventricle is moderately dilated. There is normal left ventricular wall thickness. Left ventricular systolic function is severely reduced. The Ejection Fraction estimate is <20%. Doppler measurements suggest pseudonormalized left ventricular relaxation, which is associated with grade II/IV or mild to moderate diastolic dysfunction. There is severe global hypokinesis of the left ventricle. Regional wall motion abnormalities cannot be excluded due to limited visualization. Right Ventricle The right ventricle is grossly normal size. There is normal right ventricular wall thickness. The right ventricular systolic function is mild to moderately reduced. Atria Borderline right atrial enlargement. The left atrium is mildly dilated. Interarterial septum not well visualized and not well dopplered. Cannot comment on ASD/PFO presence. Mitral Valve The mitral valve is grossly normal. There is no mitral valve stenosis. There is a mild amount of mitral regurgitation. Aortic Valve The aortic valve opens well. There is no aortic valve stenosis. No aortic regurgitation is present. Tricuspid Valve The tricuspid valve is not well visualized, but is grossly normal. There is no tricuspid stenosis. There is a mild amount of tricuspid regurgitation. There is mild pulmonary hypertension by echo. Right ventricular systolic pressure is estimated to be elevated at 30-40mmHg. Pulmonic Valve The pulmonic valve is not well visualized. Great Vessels The aortic root is not well visualized but is probably normal size. The inferior vena cava appeared normal and decreased < 50% with respiration (RAP 10-15 mmHg). Effusions There is no pericardial effusion. Incidental Findings Pacemaker wire noted. : DEO ROBBINS > Edis Moody
[2018-04-12] MEDS: NORMAL SALINE 1000 ML 1,000 ML IV PRN (18:45)
--- NOTE | 2018-04-12 19:04 | PDOC PROGRESS REPORT ---
Subjective Progress Note for:: 04/12/18 Subjective:: The patient is awake and alert for me this morning. No new complaints. Reason For Visit: HEART FAILURE Physical Exam Vital Signs: Temp Pulse Resp BP Pulse Ox 97.3 F 73 17 116/83 100 04/12/18 15:32 04/12/18 15:32 04/12/18 15:32 04/12/18 15:32 04/12/18 15:32 Intake & Output 04/11/18 04/12/18 04/13/18 06:59 06:59 06:59 Intake Total 645 1049 586 Output Total 600 650 400 Balance 45 399 186 Weight 83.4 kg 85 kg General appearance: PRESENT: no acute distress, cooperative Respiratory exam: PRESENT: other - No increased work of breathing.. ABSENT: rales, rhonchi, wheezes Cardiovascular exam: PRESENT: RRR, other. ABSENT: gallop, rubs, systolic murmur GI/Abdominal exam: PRESENT: normal bowel sounds, soft. ABSENT: distended, hernia, mass, organolmegaly, tenderness Extremities exam: PRESENT: full ROM, +1 edema. ABSENT: joint swelling, tenderness Musculoskeletal exam: PRESENT: full ROM, normal inspection. ABSENT: deformity, dislocation, tenderness Neurological exam: PRESENT: alert, awake, oriented to person, oriented to place , oriented to time, oriented to situation, reflexes normal, CN II-XII grossly intact. ABSENT: motor sensory deficit Skin exam: PRESENT: dry, intact, warm Results Laboratory Results: 04/12/18 09:55 04/12/18 09:55 04/12/18 04/12/18 09:55 09:55 WBC 4.6 RBC 4.17 Hgb 10.2 L Hct 31.9 L MCV 76 L MCH 24.5 L MCHC 32.1 RDW 20.5 H Plt Count 221 Seg Neutrophils % Not Reportable Lymphocytes % Not Reportable Monocytes % Not Reportable Eosinophils % Not Reportable Basophils % Not Reportable Absolute Neutrophils Not Reportable Absolute Lymphocytes Not Reportable Absolute Monocytes Not Reportable Absolute Eosinophils Not Reportable Absolute Basophils Not Reportable Sodium 139.7 Potassium 4.7 Chloride 99 Carbon Dioxide 25 Anion Gap 16 BUN 98 H Creatinine 3.17 H Est GFR ( Amer) 17 L Est GFR (Non-Af Amer) 14 L Glucose 104 Calcium 9.8 0804/10/18 04/10/18 18:00 00:22 05:55 Troponin I 0.017 0.020 0.017 Impressions: KUB X-Ray 04/09/18 00:00 IMPRESSION: NO RADIOGRAPHIC EVIDENCE FOR ACUTE ABDOMINAL DISEASE. Chest X-Ray 04/10/18 07:00 IMPRESSION: STABLE CARDIOMEGALY. MILD VASCULAR CONGESTION HAS IMPROVED. Assessment & Plan - Diagnosis (1) Congestive heart failure Qualifiers: Heart failure type: combined systolic and diastolic Heart failure chronicity: acute Qualified Code(s): I50.41 - Acute combined systolic ( congestive) and diastolic (congestive) heart failure Is this a current diagnosis for this admission?: Yes Plan: EF 15-20% Grade 2/4 diastolic dysfunction. Diuresis as possible. Blood pressures too low for diuresis. (2) Renal failure (ARF), acute on chronic Qualifiers: Acute renal failure type: unspecified Chronic kidney disease stage: stage 4 (severe) Qualified Code(s): N17.9 - Acute kidney failure, unspecified; N18.4 - Chronic kidney disease, stage 4 (severe); N18.4 - Chronic kidney disease , stage 4 (severe); N18.4 - Chronic kidney disease, stage 4 (severe); N18.4 - Chronic kidney disease, stage 4 (severe) Is this a current diagnosis for this admission?: Yes Plan: Monitor. Avoid nephrotoxic medications. Likely related to congestive heart failure. Creatinine up again. Will consult nephrology. (3) Chronic a-fib Is this a current diagnosis for this admission?: Yes Plan: Rate is controlled. (4) Coronary artery disease Qualifiers: Coronary Disease-Associated Artery/Lesion type: unspecified vessel or lesion type [place] vs. transplanted heart: [place] heart Associated angina: without angina Qualified Code(s): I25.10 - Atherosclerotic heart disease of [place] coronary artery without angina pectoris Is this a current diagnosis for this admission?: Yes Plan: Continue home medications. (5) Dementia Qualifiers: Dementia type: unspecified type Dementia behavioral disturbance: with behavioral disturbance Qualified Code(s): F03.91 - Unspecified dementia with behavioral disturbance Is this a current diagnosis for this admission?: Yes Plan: Noted. (6) History of implantable cardioverter-defibrillator (ICD) placement Is this a current diagnosis for this admission?: Yes Plan: Noted. (7) Hypertension Qualifiers: Hypertension type: essential hypertension Qualified Code(s): I10 - Essential (primary) hypertension Is this a current diagnosis for this admission?: Yes Plan: Continue home medications. (8) Iron deficiency anemia Qualifiers: Iron deficiency anemia type: unspecified iron deficiency Qualified Code(s) : D50.9 - Iron deficiency anemia, unspecified Is this a current diagnosis for this admission?: Yes Plan: Supplement. (9) UTI (urinary tract infection) due to Enterococcus Is this a current diagnosis for this admission?: Yes Plan: Urine cultures positife for gram negative rods. Awaiting ID and specificities. Antibiotics. (10) Supratherapeutic INR Is this a current diagnosis for this admission?: Yes Plan: Hold coumadin and vitamin k given yesterday. I will give more vitamin K and order PT/INR in the am. Will also check LFT's ant right upper quadrant ultrasound. - Time Time Spent with patient: 25-34 minutes
[2018-04-12] MEDS: CIPROFLOXACIN HCL 500 MG TABLET PO SCH (19:47)
[2018-04-12] MEDS ORDERED: PHYTONADIONE 5 MG TABLET PO ONE (20:00)
[2018-04-13] MEDS: NORMAL SALINE 1000 ML 1,000 ML IV PRN (05:48)
[2018-04-13 06:52] LABS: ALANINE AMINOTRANSFERASE 29 U/L (9-52); ALBUMIN 3.4 g/dL (3.5-5.0); ALKALINE PHOSPHATASE 183 U/L (38-126); ANION GAP 17 (5-19); ASPARTATE AMINO TRANSFERASE 22 U/L (14-36); BILIRUBIN,DIRECT 1.9 mg/dL (0.0-0.4); BILIRUBIN,TOTAL 3.6 mg/dL (0.2-1.3); BLOOD UREA NITROGEN 96 mg/dL (7-20); CALCIUM 9.4 mg/dL (8.4-10.2); CARBON DIOXIDE 22 mmol/L (22-30); CHLORIDE 102 mmol/L (98-107); GLUCOSE 81 mg/dL (75-110); POTASSIUM 4.5 mmol/L (3.6-5.0); TOTAL PROTEIN 6.8 g/dL (6.3-8.2)
[2018-04-13 06:59] LABS: PROTHROMBIN TIME 21.8 SEC (11.4-15.4)
--- NOTE | 2018-04-13 08:31 | RADIOLOGY REPORT (SQ) ---
EXAM DESCRIPTION: U/S ABDOMEN LIMITED W/O DOP COMPLETED DATE/TIME: 04/13/2018 8:12 am REASON FOR STUDY: Concern for hepatits/cirrhosis COMPARISON: 02/24/2018 TECHNIQUE: Dynamic and static grayscale images acquired of the abdomen and recorded on PACS. Additio nal selected color Doppler and spectral images recorded. LIMITATIONS: None. FINDINGS: PANCREAS: Slightly heterogenous in appearance. No masses. Visualized pancreatic duct no rmal caliber. LIVER: Nodular contour to the liver and diffuse increased coarsened echotexture, findings suggest ci rrhosis of the liver. The liver measures 13.9 cm in length. LIVER VASCULATURE: Increased pulsatility of blood flow in the main portal vein. Normal directional flow of the main portal vein and hepatic veins. GALLBLADDER: Gallstone is again identified. Slight to mild diffuse gallbladder wall thickening. Th e gallbladder wall measures 3.1 mm. Pericholecystic fluid. ULTRASOUND-DETECTED PABON'S SIGN: Negative. INTRAHEPATIC DUCTS AND COMMON DUCT: CBD measures 5.0 mm, at the upper limits of normal. The intrahep atic ducts normal caliber. No filling defects. INFERIOR VENA CAVA: Normal flow. AORTA: No aneurysm. RIGHT KIDNEY: The right kidney measures 7.5 cm, the size may be slightly underestimated. Normal ech ogenicity. No solid or suspicious masses. No hydronephrosis. No calcifications. PERITONEAL AND RIGHT PLEURAL SPACE: No ascites or effusions. OTHER: No other significant findings. IMPRESSION: 1 As on the prior study dated 02/24/2018, gallstone. Slight to mild diffuse gallbladder wall thickening and pericholecystic fluid. Correlation suggested. 2. Nodular contour to the liver and diffuse increased coarsened echotexture, findings suggest cirrho sis of the liver. TECHNICAL DOCUMENTATION: JOB ID: [id number] [employer]- All Rights Reserved Reading location - IP/workstation name: [email or web address]
[2018-04-13] MEDS: CIPROFLOXACIN HCL 500 MG TABLET PO SCH (10:37)
--- NOTE | 2018-04-13 14:24 | PDOC PROGRESS REPORT ---
Subjective Progress Note for:: 04/13/18 Subjective:: Patient was sitting up in her chair. She was eating her breakfast at the time. She appeared to be less confused than yesterday. She denied chest pain, SOB, n/v /d/c. Reason For Visit: HEART FAILURE Physical Exam Vital Signs: Temp Pulse Resp BP Pulse Ox 97.2 F 63 17 111/57 L 100 04/13/18 11:52 04/13/18 11:52 04/13/18 11:52 04/13/18 11:52 04/13/18 11:52 Intake & Output 04/12/18 04/13/18 04/14/18 06:59 06:59 06:59 Intake Total 1049 1376 118 Output Total 650 1100 200 Balance 399 276 -82 Weight 85 kg 84.9 kg General appearance: PRESENT: no acute distress, well-developed, well-nourished Mouth exam: PRESENT: dry mucosa, moist Neck exam: PRESENT: full ROM. ABSENT: JVD Respiratory exam: PRESENT: clear to auscultation meghna. ABSENT: accessory muscle use, crackles, decreased breath sounds, rales, rhonchi, wheezes Cardiovascular exam: PRESENT: +S1, +S2, systolic murmur GI/Abdominal exam: PRESENT: soft. ABSENT: ascites, diminished bowel sounds, distended, guarding, tenderness Extremities exam: PRESENT: tenderness. ABSENT: pedal edema, +1 edema, +2 edema Musculoskeletal exam: PRESENT: tenderness Neurological exam: PRESENT: alert, awake, oriented to person, oriented to place Skin exam: PRESENT: dry, intact, warm. ABSENT: cyanosis Results Laboratory Results: 04/12/18 09:55 04/13/18 05:47 04/13/18 05:47 Sodium 141.0 Potassium 4.5 Chloride 102 Carbon Dioxide 22 Anion Gap 17 BUN 96 H Creatinine 2.93 H Est GFR ( Amer) 19 L Est GFR (Non-Af Amer) 16 L Glucose 81 Calcium 9.4 Total Bilirubin 3.6 H AST 22 ALT 29 Alkaline Phosphatase 183 H Total Protein 6.8 Albumin 3.4 L 04/10/18 05:17 Clean Catch Midstream Urine Culture - Final Escherichia Coli Klebsiella Pneumoniae 04/09/18 04/10/18 04/10/18 18:00 00:22 05:55 Troponin I 0.017 0.020 0.017 Impressions: KUB X-Ray 04/09/18 00:00 IMPRESSION: NO RADIOGRAPHIC EVIDENCE FOR ACUTE ABDOMINAL DISEASE. Chest X-Ray 04/10/18 07:00 IMPRESSION: STABLE CARDIOMEGALY. MILD VASCULAR CONGESTION HAS IMPROVED. Abdomen Ultrasound 04/13/18 00:00 IMPRESSION: 1 As on the prior study dated 02/24/2018, gallstone. Slight to mild diffuse gallbladder wall thickening and pericholecystic fluid. Correlation suggested. 2. Nodular contour to the liver and diffuse increased coarsened echotexture, findings suggest cirrhosis of the liver. Assessment & Plan - Diagnosis (1) Congestive heart failure Qualifiers: Heart failure type: combined systolic and diastolic Heart failure chronicity: acute Qualified Code(s): I50.41 - Acute combined systolic ( congestive) and diastolic (congestive) heart failure Is this a current diagnosis for this admission?: Yes Plan: Stable, stopping fluids (2) Renal failure (ARF), acute on chronic Qualifiers: Acute renal failure type: unspecified Chronic kidney disease stage: stage 4 (severe) Qualified Code(s): N17.9 - Acute kidney failure, unspecified; N18.4 - Chronic kidney disease, stage 4 (severe); N18.4 - Chronic kidney disease , stage 4 (severe); N18.4 - Chronic kidney disease, stage 4 (severe); N18.4 - Chronic kidney disease, stage 4 (severe) Is this a current diagnosis for this admission?: Yes Plan: improving, stopping fluids and letting her gently rehydrate on her own, continue holding diuretics (3) UTI (urinary tract infection) due to Enterococcus Is this a current diagnosis for this admission?: Yes Plan: on cipro (4) Hypertension Qualifiers: Hypertension type: essential hypertension Qualified Code(s): I10 - Essential (primary) hypertension Is this a current diagnosis for this admission?: Yes Plan: controlled off bp meds (5) Hypokalemia Plan: stable, off supplements. (6) Iron deficiency anemia Qualifiers: Iron deficiency anemia type: unspecified iron deficiency Qualified Code(s) : D50.9 - Iron deficiency anemia, unspecified Is this a current diagnosis for this admission?: Yes Plan: improving
--- NOTE | 2018-04-13 18:15 | PDOC PROGRESS REPORT ---
Subjective Progress Note for:: 04/13/18 Subjective:: This is 73 years old black female patient admitted for acute on chronic CHF exacerbation. Patient is being managed with Lasix and other heart protective medications. She is also being followed up by fur weigher for her acute on chronic kidney disease. This morning I seen patient sitting up on recliner and enjoying her breakfast. She is awake alert and she is more conversant and appears oriented. Patient has been on Coumadin for chronic A. fib and but she is found to have supratherapeutic INR which currently resolved and I switched her Coumadin to Eliquis. Reason For Visit: HEART FAILURE Physical Exam Vital Signs: Temp Pulse Resp BP Pulse Ox 97.1 F 71 17 115/68 100 04/13/18 15:30 04/13/18 15:30 04/13/18 15:30 04/13/18 15:30 04/13/18 15:30 Intake & Output 04/12/18 04/13/18 04/14/18 06:59 06:59 06:59 Intake Total 1049 1376 118 Output Total 650 1100 200 Balance 399 276 -82 Weight 85 kg 84.9 kg General appearance: PRESENT: no acute distress Head exam: PRESENT: atraumatic Eye exam: PRESENT: conjunctiva pink Mouth exam: PRESENT: moist Neck exam: ABSENT: carotid bruit, JVD, lymphadenopathy, thyromegaly Respiratory exam: PRESENT: decreased breath sounds. ABSENT: rales, rhonchi, wheezes Cardiovascular exam: PRESENT: irregular rhythm GI/Abdominal exam: PRESENT: normal bowel sounds, soft. ABSENT: distended, guarding, mass, organolmegaly, rebound, tenderness Neurological exam: PRESENT: alert, awake Results Laboratory Results: 04/12/18 09:55 04/13/18 05:47 04/13/18 05:47 Sodium 141.0 Potassium 4.5 Chloride 102 Carbon Dioxide 22 Anion Gap 17 BUN 96 H Creatinine 2.93 H Est GFR ( Amer) 19 L Est GFR (Non-Af Amer) 16 L Glucose 81 Calcium 9.4 Total Bilirubin 3.6 H AST 22 ALT 29 Alkaline Phosphatase 183 H Total Protein 6.8 Albumin 3.4 L 04/10/18 05:17 Clean Catch Midstream Urine Culture - Final Escherichia Coli Klebsiella Pneumoniae 08/24/18 08/25/18 08/25/18 18:00 00:22 05:55 Troponin I 0.017 0.020 0.017 Impressions: KUB X-Ray 04/09/18 00:00 IMPRESSION: NO RADIOGRAPHIC EVIDENCE FOR ACUTE ABDOMINAL DISEASE. Chest X-Ray 04/10/18 07:00 IMPRESSION: STABLE CARDIOMEGALY. MILD VASCULAR CONGESTION HAS IMPROVED. Abdomen Ultrasound 04/13/18 00:00 IMPRESSION: 1 As on the prior study dated 02/24/2018, gallstone. Slight to mild diffuse gallbladder wall thickening and pericholecystic fluid. Correlation suggested. 2. Nodular contour to the liver and diffuse increased coarsened echotexture, findings suggest cirrhosis of the liver. Assessment & Plan - Diagnosis (1) Acute on chronic systolic congestive heart failure, NYHA class 3 Is this a current diagnosis for this admission?: Yes Plan: Echo shows ejection fraction less than 20%. Patient is status post AICD placement (2) Acute on chronic stage IV CKD Is this a current diagnosis for this admission?: Yes Plan: Management per her primary fur weigher. (3) Supratherapeutic INR Is this a current diagnosis for this admission?: Yes Plan: Has resolved. I discontinued her Coumadin and patient started on Eliquis (4) Chronic a-fib Is this a current diagnosis for this admission?: Yes Plan: Controlled. Continue Eliquis. (5) Hypokalemia Is this a current diagnosis for this admission?: Yes Plan: Has resolved. (6) Iron deficiency anemia Qualifiers: Iron deficiency anemia type: unspecified iron deficiency Qualified Code(s) : D50.9 - Iron deficiency anemia, unspecified Is this a current diagnosis for this admission?: Yes Plan: H and H stable (7) Dementia Qualifiers: Dementia behavioral disturbance: without behavioral disturbance Is this a current diagnosis for this admission?: Yes Plan: Stable
[2018-04-13] MEDS: APIXABAN 2.5 MG TABLET PO SCH (18:16)
--- NOTE | 2018-04-13 19:54 | EKG REPORT ---
SEVERITY:- ABNORMAL ECG - SINUS RHYTHM PAIRED VENTRICULAR PREMATURE COMPLEXES NONSPECIFIC IVCD WITH LAD CONSIDER INFERIOR INFARCT CONSIDER ANTEROSEPTAL INFARCT : Confirmed by: Robi Livingston MD 13-Apr-2018 19:53:21
[2018-04-13] MEDS: CARVEDILOL 6.25 MG TABLET PO SCH (23:22)
[2018-04-13] MEDS: MELATONIN 5 MG TABLET PO SCH (23:22)
[2018-04-13] MEDS: ATORVASTATIN CALCIUM 20 MG TABLET PO SCH (23:24)
[2018-04-13] MEDS: LEVETIRACETAM 500 MG TABLET PO SCH (23:28)
[2018-04-14 06:46] LABS: HEMATOCRIT 29.3 % (36.0-47.0); HEMOGLOBIN 9.6 g/dL (12.0-15.5); MEAN CORPUSCULAR HEMOGLOBIN 24.7 pg (27.0-33.4); MEAN CORPUSCULAR HGB CONC 32.7 g/dL (32.0-36.0); MEAN CORPUSCULAR VOLUME 76 fl (80-97); PLATELET COUNT 201 10^3/uL (150-450); RED BLOOD COUNT 3.88 10^6/uL (3.72-5.28); WHITE BLOOD COUNT 4.5 10^3/uL (4.0-10.5)
[2018-04-14 08:53] LABS: ANION GAP 15 (5-19); BLOOD UREA NITROGEN 93 mg/dL (7-20); CALCIUM 9.7 mg/dL (8.4-10.2); CARBON DIOXIDE 23 mmol/L (22-30); CHLORIDE 103 mmol/L (98-107); GLUCOSE 74 mg/dL (75-110); POTASSIUM 4.5 mmol/L (3.6-5.0); SODIUM 140.9 mmol/L (137-145)
[2018-04-14] MEDS ORDERED: (PENDING PHARMACY ID) (Fluticasone/Vilanterol [Breo Ellipta 100-25 Mcg Inh] 1 PUFF) IH SCH (10:00)
[2018-04-14] MEDS: LEVETIRACETAM 500 MG TABLET PO SCH ×2 (10:01→22:46)
[2018-04-14] MEDS: CARVEDILOL 6.25 MG TABLET PO SCH ×2 (10:02→22:44)
[2018-04-14] MEDS: CHOLECALCIFEROL (D3) 1,000 UNIT TABLET PO SCH (10:02)
[2018-04-14] MEDS: TORSEMIDE 20 MG TABLET PO SCH (10:02)
[2018-04-14] MEDS: ASPIRIN 81 MG TABLET, ENT COATED PO SCH (10:02)
[2018-04-14] MEDS: APIXABAN 2.5 MG TABLET PO SCH ×2 (10:02→18:04)
[2018-04-14] MEDS: LISINOPRIL 5 MG TABLET PO SCH (10:03)
[2018-04-14] MEDS: CIPROFLOXACIN HCL 500 MG TABLET PO SCH (10:54)
--- NOTE | 2018-04-14 15:22 | PDOC PROGRESS REPORT ---
Subjective Progress Note for:: 04/14/18 Subjective:: Patient seen and examined while she is sitting on chair and enjoying her breakfast. This morning patient has an episode of transient confusion which subsided later. Her vital signs, medication and labs were reviewed. Reason For Visit: HEART FAILURE Physical Exam Vital Signs: Temp Pulse Resp BP Pulse Ox 97.2 F 63 18 108/66 97 04/14/18 11:44 04/14/18 11:44 04/14/18 11:44 04/14/18 11:44 04/14/18 11:44 Intake & Output 04/13/18 04/14/18 04/15/18 06:59 06:59 06:59 Intake Total 1376 355 236 Output Total 1100 1400 200 Balance 276 -1045 36 Weight 84.9 kg 84.4 kg Results Laboratory Results: 04/14/18 05:49 04/14/18 08:05 04/14/18 04/14/18 04/14/18 05:49 05:49 08:05 WBC 4.5 RBC 3.88 Hgb 9.6 L Hct 29.3 L MCV 76 L MCH 24.7 L MCHC 32.7 RDW 21.0 H Plt Count 201 Sodium Cancelled 140.9 Potassium Cancelled 4.5 Chloride Cancelled 103 Carbon Dioxide Cancelled 23 Anion Gap Cancelled 15 BUN Cancelled 93 H Creatinine Cancelled 2.61 H Est GFR ( Amer) Cancelled 22 L Est GFR (Non-Af Amer) Cancelled 18 L Glucose Cancelled 74 L Calcium Cancelled 9.7 Ammonia 04/14/18 11:35 WBC RBC Hgb Hct MCV MCH MCHC RDW Plt Count Sodium Potassium Chloride Carbon Dioxide Anion Gap BUN Creatinine Est GFR ( Amer) Est GFR (Non-Af Amer) Glucose Calcium Ammonia < 8.7 L 04/09/18 04/10/18 04/10/18 18:00 00:22 05:55 Troponin I 0.017 0.020 0.017 Impressions: KUB X-Ray 04/09/18 00:00 IMPRESSION: NO RADIOGRAPHIC EVIDENCE FOR ACUTE ABDOMINAL DISEASE. Chest X-Ray 04/10/18 07:00 IMPRESSION: STABLE CARDIOMEGALY. MILD VASCULAR CONGESTION HAS IMPROVED. Abdomen Ultrasound 04/13/18 00:00 IMPRESSION: 1 As on the prior study dated 02/24/2018, gallstone. Slight to mild diffuse gallbladder wall thickening and pericholecystic fluid. Correlation suggested. 2. Nodular contour to the liver and diffuse increased coarsened echotexture, findings suggest cirrhosis of the liver. Assessment & Plan - Diagnosis (1) Acute on chronic systolic congestive heart failure, NYHA class 3 Is this a current diagnosis for this admission?: Yes Plan: Echo shows ejection fraction less than 20%. Patient is status post AICD placement (2) Acute on chronic stage IV CKD Is this a current diagnosis for this admission?: Yes Plan: Management per her primary departmental secretary. (3) Supratherapeutic INR Is this a current diagnosis for this admission?: Yes Plan: Has resolved (4) Chronic a-fib Is this a current diagnosis for this admission?: Yes Plan: Controlled. Continue Eliquis. (5) Hypokalemia Is this a current diagnosis for this admission?: Yes Plan: Has resolved. (6) Iron deficiency anemia Qualifiers: Iron deficiency anemia type: unspecified iron deficiency Qualified Code(s) : D50.9 - Iron deficiency anemia, unspecified Is this a current diagnosis for this admission?: Yes Plan: H and H stable (7) Dementia Qualifiers: Dementia behavioral disturbance: without behavioral disturbance Is this a current diagnosis for this admission?: Yes Plan: Stable
[2018-04-14] MEDS: METOLAZONE 2.5 MG TABLET PO SCH (15:31)
--- NOTE | 2018-04-14 15:45 | PDOC PROGRESS REPORT ---
Subjective Progress Note for:: 04/14/18 Subjective:: Patient was seen laying in her bed. At the time she appeared to be more altered than yesterday. She was angry and was focused on getting placed in her chair next to her bed. She was not able to reliably give me a ROS. She did have a recent abdominal ultrasound that showed concern for cirrhosis of the liver. Reason For Visit: HEART FAILURE Physical Exam Vital Signs: Temp Pulse Resp BP Pulse Ox 97.2 F 72 17 109/75 100 04/14/18 15:15 04/14/18 15:15 04/14/18 15:15 04/14/18 15:15 04/14/18 15:15 Intake & Output 04/13/18 04/14/18 04/15/18 06:59 06:59 06:59 Intake Total 1376 355 236 Output Total 1100 1400 200 Balance 276 -1045 36 Weight 84.9 kg 84.4 kg General appearance: PRESENT: no acute distress, well-developed, well-nourished Mouth exam: PRESENT: moist, neck supple Neck exam: PRESENT: full ROM. ABSENT: JVD Respiratory exam: PRESENT: clear to auscultation meghna. ABSENT: accessory muscle use, crackles, rales, rhonchi, wheezes Cardiovascular exam: PRESENT: +S1, +S2, systolic murmur GI/Abdominal exam: PRESENT: soft. ABSENT: ascites, diminished bowel sounds, distended, guarding, tenderness Extremities exam: ABSENT: pedal edema, tenderness, +1 edema, +2 edema Musculoskeletal exam: PRESENT: normal inspection. ABSENT: tenderness Neurological exam: PRESENT: alert, altered, awake, oriented to place Psychiatric exam: PRESENT: agitated Focused psych exam: PRESENT: restlessness Skin exam: PRESENT: dry, intact, warm. ABSENT: cyanosis Results Laboratory Results: 04/14/18 05:49 04/14/18 08:05 04/14/18 04/14/18 04/14/18 05:49 05:49 08:05 WBC 4.5 RBC 3.88 Hgb 9.6 L Hct 29.3 L MCV 76 L MCH 24.7 L MCHC 32.7 RDW 21.0 H Plt Count 201 Sodium Cancelled 140.9 Potassium Cancelled 4.5 Chloride Cancelled 103 Carbon Dioxide Cancelled 23 Anion Gap Cancelled 15 BUN Cancelled 93 H Creatinine Cancelled 2.61 H Est GFR ( Amer) Cancelled 22 L Est GFR (Non-Af Amer) Cancelled 18 L Glucose Cancelled 74 L Calcium Cancelled 9.7 Ammonia 04/14/18 11:35 WBC RBC Hgb Hct MCV MCH MCHC RDW Plt Count Sodium Potassium Chloride Carbon Dioxide Anion Gap BUN Creatinine Est GFR ( Amer) Est GFR (Non-Af Amer) Glucose Calcium Ammonia < 8.7 L 04/09/18 04/10/18 04/10/18 18:00 00:22 05:55 Troponin I 0.017 0.020 0.017 Impressions: KUB X-Ray 04/09/18 00:00 IMPRESSION: NO RADIOGRAPHIC EVIDENCE FOR ACUTE ABDOMINAL DISEASE. Chest X-Ray 04/10/18 07:00 IMPRESSION: STABLE CARDIOMEGALY. MILD VASCULAR CONGESTION HAS IMPROVED. Abdomen Ultrasound 04/13/18 00:00 IMPRESSION: 1 As on the prior study dated 02/24/2018, gallstone. Slight to mild diffuse gallbladder wall thickening and pericholecystic fluid. Correlation suggested. 2. Nodular contour to the liver and diffuse increased coarsened echotexture, findings suggest cirrhosis of the liver. Assessment & Plan - Diagnosis (1) Congestive heart failure Qualifiers: Heart failure type: combined systolic and diastolic Heart failure chronicity: acute Qualified Code(s): I50.41 - Acute combined systolic ( congestive) and diastolic (congestive) heart failure Is this a current diagnosis for this admission?: Yes Plan: Stable (2) Renal failure (ARF), acute on chronic Qualifiers: Acute renal failure type: unspecified Chronic kidney disease stage: stage 4 (severe) Qualified Code(s): N17.9 - Acute kidney failure, unspecified; N18.4 - Chronic kidney disease, stage 4 (severe); N18.4 - Chronic kidney disease , stage 4 (severe); N18.4 - Chronic kidney disease, stage 4 (severe); N18.4 - Chronic kidney disease, stage 4 (severe) Is this a current diagnosis for this admission?: Yes Plan: improving, letting her gently rehydrate on her own, continue holding diuretics (3) UTI (urinary tract infection) due to Enterococcus Is this a current diagnosis for this admission?: Yes Plan: on cipro (4) Hypertension Qualifiers: Hypertension type: essential hypertension Qualified Code(s): I10 - Essential (primary) hypertension Is this a current diagnosis for this admission?: Yes Plan: controlled off bp meds (5) Hypokalemia Is this a current diagnosis for this admission?: Yes Plan: stable, off supplements. (6) Iron deficiency anemia Qualifiers: Iron deficiency anemia type: unspecified iron deficiency Qualified Code(s) : D50.9 - Iron deficiency anemia, unspecified Is this a current diagnosis for this admission?: Yes Plan: will get iron panel for tomorrow morning
[2018-04-14] MEDS: MELATONIN 5 MG TABLET PO SCH (22:46)
[2018-04-14] MEDS: ATORVASTATIN CALCIUM 20 MG TABLET PO SCH (22:46)
[2018-04-15] MEDS: LEVETIRACETAM 500 MG TABLET PO SCH (10:12)
[2018-04-15] MEDS: LISINOPRIL 5 MG TABLET PO SCH (10:12)
[2018-04-15] MEDS: CHOLECALCIFEROL (D3) 1,000 UNIT TABLET PO SCH (10:12)
[2018-04-15] MEDS: TORSEMIDE 20 MG TABLET PO SCH (10:12)
[2018-04-15] MEDS: CIPROFLOXACIN HCL 500 MG TABLET PO SCH (10:12)
[2018-04-15] MEDS: METOLAZONE 2.5 MG TABLET PO SCH (10:12)
[2018-04-15] MEDS: CARVEDILOL 6.25 MG TABLET PO SCH (10:12)
[2018-04-15] MEDS: ASPIRIN 81 MG TABLET, ENT COATED PO SCH (10:13)
[2018-04-15] MEDS: APIXABAN 2.5 MG TABLET PO SCH (10:13)
--- NOTE | 2018-04-15 10:17 | PDOC DISCHARGE SUMMARY ---
General - Admit/Disc Date/PCP Admission Date/Primary Care Provider: 04/09/18 17:02 CODY MEHTA MD Discharge Date: 04/15/18 - Discharge Diagnosis (1) Acute on chronic systolic congestive heart failure, NYHA class 3 Is this a current diagnosis for this admission?: Yes (2) Acute on chronic stage IV CKD Is this a current diagnosis for this admission?: Yes (3) Supratherapeutic INR Is this a current diagnosis for this admission?: Yes (4) Chronic a-fib Is this a current diagnosis for this admission?: Yes (5) Hypokalemia Is this a current diagnosis for this admission?: Yes (6) Iron deficiency anemia Is this a current diagnosis for this admission?: Yes (7) Dementia Is this a current diagnosis for this admission?: Yes - Additional Information Resuscitation Status: Full Code Discharge Diet: Cardiac Discharge Activity: Activity As Tolerated, Balance Activity w/Rest, Weigh Daily Home Medications: Aspirin [Ecotrin 81 mg EC Tablet] 81 mg PO DAILY 04/09/18 Carvedilol [Coreg 6.25 mg Tablet] 6.25 mg PO Q12 04/09/18 Cholecalciferol (Vitamin D3) [Vitamin D3 1000 Unit Tablet] 1,000 unit PO DAILY 04/09/18 Fluticasone/Vilanterol [Breo Ellipta 100-25 Mcg INH] 1 puff IH DAILY 04/09/18 Levetiracetam [Keppra 500 mg Tablet] 500 mg PO Q12 04/09/18 Lisinopril [Prinivil 5 mg Tablet] 5 mg PO DAILY 04/09/18 Melatonin [Melatonin 5 mg Tablet] 5 mg PO QHS 04/09/18 Metolazone [Zaroxolyn 2.5 mg Tablet] 2.5 mg PO DAILY 04/09/18 Rosuvastatin Calcium [Crestor 10 mg Tablet] 10 mg PO DAILY 04/09/18 Torsemide [Demadex 20 mg Tablet] 20 mg PO DAILY 04/09/18 Warfarin Sodium [Coumadin 3 mg Tablet] 3 mg PO DAILY 04/09/18 History of Present Illness History of Present Illness: NAYELI MCKEON is a 73 year old female Patient is a 73-year-old female with a history of A. fib (on Coumadin), defib placement, CHF, coronary artery disease, [place], hypertension, hypercholesterolemia, CVA, depression, early onset dementia, seizure disorder, and GERD who presents to the ED with family complaining of increased dyspnea and fatigue over the last several days with an episode of feeling dizzy and lightheaded while at her registration rep's office today. Family has noticed that she has had increased edema buildup to her LE's over the last 3 weeks despite use of torsemide. They have also noticed an increase in her weakness primarily with ambulation as she has needed assistance primarily of the last day. She has been eating and drinking without any difficulties. She has been urinating normally and having normal bowel movements otherwise. She has no concern of pain. She is at baseline with her mentation and speech otherwise per the family. She did not have any loss of consciousness. Denies any headache, fever, head injury, neck pain, changes in vision/speech/mentation/ hearing, URI, sore throat, chest pain, palpitations, syncope, cough, abdominal pain, nausea/vomiting/diarrhea, urinary retention, dysuria, hematuria, loss of control of bowel or bladder, numbness/tingling, saddle anesthesia, muscle paralysis, or rash. Hospital Course Hospital Course: This is 73 years old black female patient admitted for acute on chronic CHF exacerbation. Patient is being managed with Lasix and other heart protective medications. She is also being followed up by wool hanker for her acute on chronic kidney disease. This morning I seen patient sitting up on recliner and enjoying her breakfast. She is awake alert and she is more conversant and appears oriented. Patient has been on Coumadin for chronic A. fib and but she is found to have supratherapeutic INR which currently resolved. I switched her anticoagulation from Coumadin to Eliquis 2.5 mg twice a day. Patient has been participating with physical therapy and they recommended to continue the PT at home. Her kidney function is also improving evidenced by trending down creatinine. Vital signs are within normal limits. I will discharge the patient today with home health. Physical Exam Vital Signs: Temp Pulse Resp BP Pulse Ox 97.6 F 72 16 110/75 100 04/15/18 07:20 04/15/18 07:20 04/15/18 07:20 04/15/18 07:20 04/15/18 07:20 Intake & Output 04/14/18 04/15/18 04/16/18 06:59 06:59 06:59 Intake Total 355 795 Output Total 1400 950 Balance -1045 -155 Weight 84.4 kg 85.3 kg General appearance: PRESENT: no acute distress Head exam: PRESENT: atraumatic Eye exam: PRESENT: conjunctiva pink Mouth exam: PRESENT: moist Neck exam: ABSENT: carotid bruit, JVD, lymphadenopathy, thyromegaly Respiratory exam: PRESENT: decreased breath sounds Cardiovascular exam: PRESENT: RRR. ABSENT: diastolic murmur, rubs, systolic murmur GI/Abdominal exam: PRESENT: normal bowel sounds, soft. ABSENT: distended, guarding, mass, organolmegaly, rebound, tenderness Extremities exam: PRESENT: +2 edema Neurological exam: PRESENT: alert, awake Results Laboratory Results: 04/14/18 05:49 04/14/18 08:05 04/14/18 11:35 Ammonia < 8.7 L 04/09/18 04/10/18 04/10/18 18:00 00:22 05:55 Troponin I 0.017 0.020 0.017 Impressions: KUB X-Ray 04/09/18 00:00 IMPRESSION: NO RADIOGRAPHIC EVIDENCE FOR ACUTE ABDOMINAL DISEASE. Chest X-Ray 04/10/18 07:00 IMPRESSION: STABLE CARDIOMEGALY. MILD VASCULAR CONGESTION HAS IMPROVED. Abdomen Ultrasound 04/13/18 00:00 IMPRESSION: 1 As on the prior study dated 02/24/2018, gallstone. Slight to mild diffuse gallbladder wall thickening and pericholecystic fluid. Correlation suggested. 2. Nodular contour to the liver and diffuse increased coarsened echotexture, findings suggest cirrhosis of the liver. Qualifiers - * PATIENT BEING DISCHARGED WITH ANY OF THE FOLLOWING DIAGNOSIS: Heart Failure VTE patient discharged on overlapping Therapy?: No Reason(s) for not prescribing Overlap Therapy:: Not indicated Stroke Pt being discharged on Anti-thrombolytic therapy?: No Reason(s) for not prescribing Anti-thrombolytic therapy:: Not indicated Stroke Pt being discharged on Anti-coagulation therapy?: No Reason(s) for not prescribing Anti-coagulation therapy:: Not indicated Stroke Pt being discharged on Statins?: No Reason(s) for not prescribing Statins therapy:: Not indicated [place] Pt being discharged on Aspirin therapy?: No Reason(s) for not prescribing Aspirin therapy:: Not indicated [place] Pt being discharged on Statins?: No Reason(s) for not prescribing Statin therapy:: Not indicated [place] Pt discharged ACEI/ARBS?: No Reason(s) for not prescribing ACEI/ARBS:: Not indicated HF Pt being discharged on ACEI for LVEF less than 40%?: Yes HF Pt being discharged on ARBS for LVEF less than 40%?: No Reason(s) for not prescribing ARBS:: Not indicated HF Pt with Afib discharged with Warfarin?: No Reason(s) for not prescribing Warfarin:: Not indicated HF Pt discharged on evidence-based Beta Gabby:: Yes
[2018-04-15 11:01] VITALS: BP 109/80
[2018-04-15 11:01] LABS: ABSOLUTE RETICS # 0.161 10^6/uL (0.028-0.122); HEMATOCRIT 30.5 % (36.0-47.0); MEAN CORPUSCULAR HGB CONC 32.9 g/dL (32.0-36.0); MEAN CORPUSCULAR VOLUME 76 fl (80-97); PLATELET COUNT 225 10^3/uL (150-450); RED BLOOD COUNT 4.01 10^6/uL (3.72-5.28); RED CELL DISTRIBUTION WIDTH 21.7 % (11.5-14.0); RETICULOCYTE COUNT (AUTO) 4.02 % (0.66-2.85); WHITE BLOOD COUNT 4.3 10^3/uL (4.0-10.5)
[2018-04-15 11:26] LABS: ANION GAP 15 (5-19); BLOOD UREA NITROGEN 85 mg/dL (7-20); CALCIUM 9.2 mg/dL (8.4-10.2); CARBON DIOXIDE 26 mmol/L (22-30); CHLORIDE 98 mmol/L (98-107); GLUCOSE 88 mg/dL (75-110); POTASSIUM 3.8 mmol/L (3.6-5.0); SODIUM 138.7 mmol/L (137-145)
[2018-04-15 11:36] LABS: IRON(TIBC) < 10.1 ug/dL (37-170)
== END 2018-04-15 14:32 | disposition home health service (06) | DRG 682 ==
LOC: ER 12:28 → EH 17:02 → 3S 19:52
PROVIDERS: ADMIT Internal Medicine; ATTEND Internal Medicine
PROC: 5A09457 Assistance with Respiratory Ventilation, 24-96 Consecutive Hours, Continuous Positive Airway Pressure (ICD-10-PCS; principal; 2018-04-09)
DX: N17.9 Acute kidney failure, unspecified (principal); I50.41 Acute combined systolic (congestive) and diastolic (congestive) heart failure; I13.0 Hypertensive heart and chronic kidney disease with heart failure and stage 1 through stage 4 chronic kidney disease, or unspecified chronic kidney disease; N39.0 Urinary tract infection, site not specified; F03.91 Unspecified dementia, unspecified severity, with behavioral disturbance; N18.4 Chronic kidney disease, stage 4 (severe); I48.2 Chronic atrial fibrillation; E87.6 Hypokalemia; D50.9 Iron deficiency anemia, unspecified; R79.1 Abnormal coagulation profile; I25.10 Atherosclerotic heart disease of native coronary artery without angina pectoris; E78.00 Pure hypercholesterolemia, unspecified; F32.9 Major depressive disorder, single episode, unspecified; G40.909 Epilepsy, unspecified, not intractable, without status epilepticus; K21.9 Gastro-esophageal reflux disease without esophagitis; G47.30 Sleep apnea, unspecified; B95.2 Enterococcus as the cause of diseases classified elsewhere; B96.20 Unspecified Escherichia coli [E. coli] as the cause of diseases classified elsewhere; I25.2 Old myocardial infarction; Z79.899 Other long term (current) drug therapy; Z79.01 Long term (current) use of anticoagulants; Z79.82 Long term (current) use of aspirin; Z86.73 Personal history of transient ischemic attack (TIA), and cerebral infarction without residual deficits; Z82.49 Family history of ischemic heart disease and other diseases of the circulatory system
CPT/HCPCS: 36415; 71045; 71046; 74018; 76705; 80048; 80053; 80061; 80076; 81001; 82140; 82550; 82553; 82607; 82728; 82746; 82803; 83540; 83550; 83605; 83735; 83880; 84484; 85025; 85027; 85045; 85610; 87040; 87086; 87088; 87186; 87324; 93005; 93010; 93306; 94660; 99285; G8978-GP; G8979-GP; J1650; J1940; J2405; J2543; J3480; J3490; J7030

== ENCOUNTER 2018-04-22 14:45 | Inpatient (IN) | payer MEDICARE, MEDICAID ==
--- NOTE | 2018-04-22 16:29 | ER Document Report ---
ED Medical Screen (RME) - General Chief Complaint: Vomiting Stated Complaint: VOMITING Time Seen by Provider: 04/22/18 16:22 Notes: Patient brought in by family for several complaints. Patient supposedly has been vomiting for the past couple of days. Recently saw Dr. Nielsen, animal health technician, who did both an upper and lower endoscopy on the patient and found her to have a gastrointestinal infection and she was put on tetracycline. Patient had a nosebleed yesterday. She seems to have fluid buildup with swelling of her legs and face. Having some difficulty breathing as well. Has a cough. Not running a fever, however. No UTI symptoms. PMH: Stroke 4, heart attack, CHF, seizures, defibrillator. On Eliquis. Per family, patient has mild dementia TRAVEL OUTSIDE OF THE [place] IN LAST 30 DAYS: No - Related Data Allergies/Adverse Reactions: No Known Allergies Allergy (Verified 04/22/18 14:47) Past Medical History - Social History Chew tobacco use (# tins/day): No Frequency of alcohol use: None Drug Abuse: None - Past Medical History Cardiac Medical History: Reports: Hx Atrial Fibrillation, Hx Congestive Heart Failure, Hx Coronary Artery Disease, Hx Heart Attack, Hx Hypercholesterolemia, Hx Hypertension Pulmonary Medical History: Reports: Hx Sleep Apnea Neurological Medical History: Reports: Hx Cerebrovascular Accident, Hx Seizures Renal/ Medical History: Denies: Hx Peritoneal Dialysis GI Medical History: Reports: Hx Gastroesophageal Reflux Disease Psychiatric Medical History: Reports: Hx Dementia, Hx Depression Past Surgical History: Reports: Hx Cardiac Catheterization - defib inserted, Hx Hysterectomy - Immunizations History of Influenza Vaccine for 05/2017 - 10/2017 Season: Unknown Physical Exam - Vital signs Vitals: Temp Pulse Resp BP Pulse Ox 97.3 F 64 18 113/79 99 04/22/18 15:02 04/22/18 15:02 04/22/18 15:02 04/22/18 15:02 04/22/18 15:02 Course - Vital Signs Vital signs: Temp Pulse Resp BP Pulse Ox 97.3 F 64 14 113/79 99 04/22/18 15:02 04/22/18 15:02 04/22/18 15:49 04/22/18 15:02 04/22/18 15:02 Doctor's Discharge - Discharge Referrals: CODY MEHTA MD [Primary Care Provider] - Follow up as needed
[2018-04-22 17:27] LABS: HEMOGLOBIN 9.8 g/dL (12.0-15.5); MEAN CORPUSCULAR HEMOGLOBIN 24.2 pg (27.0-33.4); MEAN CORPUSCULAR HGB CONC 31.6 g/dL (32.0-36.0); MEAN CORPUSCULAR VOLUME 76 fl (80-97); PLATELET COUNT 216 10^3/uL (150-450); RED BLOOD COUNT 4.05 10^6/uL (3.72-5.28); RED CELL DISTRIBUTION WIDTH 23.2 % (11.5-14.0); WHITE BLOOD COUNT 4.9 10^3/uL (4.0-10.5)
--- NOTE | 2018-04-22 17:33 | RADIOLOGY REPORT (SQ) ---
EXAM DESCRIPTION: CHEST SINGLE VIEW COMPLETED DATE/TIME: 04/22/2018 5:22 pm REASON FOR STUDY: S OB, cough COMPARISON: 04/09/2018 EXAM PARAMETERS: NUMBER OF VIEWS: One view. TECHNIQUE: Single frontal radiographic view of the chest acquired. RADIATION DOSE: NA LIMITATIONS: None. FINDINGS: LUNGS AND PLEURA: Small left pleural effusion. Cannot exclude a limited infiltrate in the left lower lobe. MEDIASTINUM AND HILAR STRUCTURES: No masses. Contour normal. HEART AND VASCULAR STRUCTURES: Cardiomegaly. No pulmonary edema. BONES: No acute findings. HARDWARE: Pacemaker/defibrillator. OTHER: No other significant finding. IMPRESSION: Cardiomegaly without CHF. Possible left lower lobe pneumonia. Small left pleural effus ion. TECHNICAL DOCUMENTATION: JOB ID: [id number] [employer]- All Rights Reserved Reading location - IP/workstation name: [email or web address]
[2018-04-22 17:37] LABS: ALANINE AMINOTRANSFERASE 31 U/L (9-52); ALKALINE PHOSPHATASE 190 U/L (38-126); ANION GAP 17 (5-19); ASPARTATE AMINO TRANSFERASE 30 U/L (14-36); BILIRUBIN,DIRECT 1.6 mg/dL (0.0-0.4); BILIRUBIN,TOTAL 2.7 mg/dL (0.2-1.3); BLOOD UREA NITROGEN 78 mg/dL (7-20); CALCIUM 9.6 mg/dL (8.4-10.2); CARBON DIOXIDE 25 mmol/L (22-30); CHLORIDE 98 mmol/L (98-107); GLUCOSE 80 mg/dL (75-110); LIPASE 111.9 U/L (23-300); POTASSIUM 3.9 mmol/L (3.6-5.0); SODIUM 139.7 mmol/L (137-145); TOTAL PROTEIN 7.8 g/dL (6.3-8.2)
[2018-04-22 17:48] LABS: CREATINE KINASE MB 0.98 ng/mL (<4.55); TROPONIN I 0.019 ng/mL
[2018-04-22 17:50] LABS: ABSOLUTE MONOCYTES # (MANUAL) 0.2 10^3/uL (0.1-1.4); ABSOLUTE NEUTROPHILS# (MANUAL) 2.6 10^3/uL (1.7-8.2); BASOPHILS % (MANUAL) 0 % (0-2); EOSINOPHILS % (MANUAL) 0 % (0-6); LYMPHOCYTES % (MANUAL) 38 % (13-45); MONOCYTES % (MANUAL) 5 % (3-13); SEGMENTED NEUTROPHILS % (MAN) 54 % (42-78); TOTAL CELLS COUNTED 100
[2018-04-22 17:52] LABS: ANISOCYTOSIS 3+; POLYCHROMASIA SLIGHT; TOXIC VACUOLATION PRESENT
[2018-04-22 17:53] LABS: BURR CELLS SLIGHT; OVALOCYTES 2+; PLATELET COMMENT ADEQUATE; POIKILOCYTOSIS 2+; SCHISTOCYTES SLIGHT; TARGET CELLS 1+; TEAR DROP CELLS SLIGHT
--- NOTE | 2018-04-22 18:38 | EKG REPORT ---
SEVERITY:- ABNORMAL ECG - SINUS RHYTHM VENTRICULAR PREMATURE COMPLEX NONSPECIFIC IVCD WITH LAD INFERIOR INFARCT , OLD EXTENSIVE ANTERIOR INFARCT, AGE INDETERMINATE : Confirmed by: Robi Livingston MD 22-Apr-2018 18:38:22
--- NOTE | 2018-04-22 20:19 | ER Document Report ---
ED General - General Chief Complaint: Vomiting Stated Complaint: VOMITING Time Seen by Provider: 04/22/18 16:22 Cannot obtain history due to: Dementia Notes: Patient is a 73-year-old female with a past medical history of dementia, hypertension, CHF, chronic kidney disease who presents with 2 days of vomiting and complaints of abdominal pain. Family provides virtually all the history as the patient is quite demented, unable to provide meaningful history. Family reports that for the past 2 days anytime that the patient tries to eat she appears to be moaning in pain and then vomits. She is able to tolerate fluids. No history of similar symptoms in the past. Nothing seems to improve or worsen her symptoms. She has not seen her general doctor regarding today's concerns. She has not had fever. She does have cough which family states is baseline and not different. She has not had fever. TRAVEL OUTSIDE OF THE [place] IN LAST 30 DAYS: No - Related Data Allergies/Adverse Reactions: No Known Allergies Allergy (Verified 04/22/18 14:47) Past Medical History - General Information source: Relative Cannot obtain history due to: Dementia - Social History Smoking Status: Former Smoker Chew tobacco use (# tins/day): No Frequency of alcohol use: None Drug Abuse: None Lives with: Family Family History: Reviewed & Not Pertinent, Hypertension Patient has suicidal ideation: No Patient has homicidal ideation: No - Past Medical History Cardiac Medical History: Reports: Hx Atrial Fibrillation, Hx Congestive Heart Failure, Hx Coronary Artery Disease, Hx Heart Attack, Hx Hypercholesterolemia, Hx Hypertension Pulmonary Medical History: Reports: Hx Sleep Apnea Neurological Medical History: Reports: Hx Cerebrovascular Accident, Hx Seizures Renal/ Medical History: Denies: Hx Peritoneal Dialysis GI Medical History: Reports: Hx Gastroesophageal Reflux Disease Psychiatric Medical History: Reports: Hx Dementia, Hx Depression Past Surgical History: Reports: Hx Cardiac Catheterization - defib inserted, Hx Hysterectomy Review of Systems - Review of Systems Notes: Constitutional: Negative for fever. HENT: Negative for sore throat. Eyes: Negative for visual changes. Cardiovascular: Negative for chest pain. Respiratory: Negative for shortness of breath. Gastrointestinal: Positive for abdominal pain and vomiting Genitourinary: Negative for dysuria. Musculoskeletal: Negative for back pain. Skin: Negative for rash. Neurological: Negative for headaches, weakness or numbness. 10 point ROS negative except as marked above and in HPI. Physical Exam - Vital signs Vitals: Temp Pulse Resp BP Pulse Ox 97.3 F 64 18 113/79 99 04/22/18 15:02 04/22/18 15:02 04/22/18 15:02 04/22/18 15:02 04/22/18 15:02 Interpretation: Normal Notes: PHYSICAL EXAMINATION: GENERAL: Elderly, appears somewhat older than stated age but in no acute distress. HEAD: Atraumatic, normocephalic. EYES: Pupils equal round and reactive to light, extraocular movements intact, sclera anicteric, conjunctiva are normal. ENT: nares patent, oropharynx clear without exudates. Mildly dry mucous membranes. NECK: Normal range of motion, supple without lymphadenopathy LUNGS: Breath sounds clear to auscultation bilaterally and equal. No wheezes rales or rhonchi. HEART: Regular rate and rhythm without murmurs ABDOMEN: Soft, generalized abdominal tenderness that appears most focal to the upper abdomen particularly over the right upper and epigastrium, normoactive bowel sounds. No guarding, no rebound. No masses appreciated. EXTREMITIES: Normal range of motion, no pitting or edema. No cyanosis. NEUROLOGICAL: No focal neurological deficits. Moves all extremities spontaneously and on command. PSYCH: Alert, oriented only to person SKIN: Warm, Dry, normal turgor, no rashes or lesions noted. Course - Re-evaluation Re-evalutation: 04/22/18 20:16 Patient presents with multiple family concerns. Primary concern is that the patient has been vomiting anytime she eats for the past 2 days. This did apparently start after she started tetracycline for concern of a gastric infection. Considerations include medication side effect, gastritis, biliary pathology, also possible bowel obstruction. Patient is grimacing on exam with palpation of any area of her abdomen. Appears to be most focal in the upper abdomen. The patient is demented, does not provide much significant history. Family does report that she is able to tolerate fluids at home. Given her advanced age will proceed with a CT scan of the abdomen pelvis. The patient will not be able to tolerate oral contrast given her nausea and she is unable to receive IV contrast due to her renal function. Family also reports that the patient has had a cough but notes that this has been ongoing for years and is not different today. Her chest x-ray does show possible left lower lobe pneumonia.The patient does not have additional signs to suggest this diagnosis she does not have fever, no leukocytosis, and family denies any change in her cough relative to baseline. I do not believe the patient clinically has pneumonia and will initiate treatment for this chest x- ray finding. Labs are noted to be overall unremarkable and/or unchanged from previous. Although patient's BNP is elevated at 13,200 is down from 18,900 her most recent hospitalization. She is also not gained weight as she is currently 83.9 kg down from 85.3 kg at the time of discharge at the end of March. She does have 4+ pitting edema in the bilateral lower extremities is equal and symmetric. I suspect this is more redistribution of her fluid as opposed to overt fluid overload given her lower BNP and decreased weight relative to time of discharge. Will place compression stockings. 04/22/18 22:31 CT scan of the abdomen pelvis without any evidence of an acute obstruction or acute cholecystitis. 04/22/18 23:57 Right upper quadrant ultrasound obtained given patient's persistent grimacing with palpation of the upper abdomen. This does show findings consistent with acute cholecystitis with pericholecystic fluid, thickened gallbladder wall and gallstones. I discussed with the surgeon implementation technician Dr. Cote who will evaluate the patient. - Vital Signs Vital signs: Temp Pulse Resp BP Pulse Ox 97.8 F 70 16 125/80 97 04/22/18 21:36 04/22/18 21:36 04/22/18 21:36 04/22/18 21:36 04/22/18 21:36 - Laboratory Result Diagrams: 04/22/18 16:54 04/22/18 16:54 Laboratory results interpreted by me: 04/22/18 04/22/18 04/22/18 16:54 16:54 16:54 Hgb 9.8 L Hct 31.0 L MCV 76 L MCH 24.2 L MCHC 31.6 L RDW 23.2 H PT APTT BUN 78 H Creatinine 2.15 H Est GFR ( Amer) 27 L Est GFR (Non-Af Amer) 23 L Total Bilirubin 2.7 H Direct Bilirubin 1.6 H Alkaline Phosphatase 190 H NT-Pro-B Natriuret Pep [id number] H 04/23/18 00:40 Hgb Hct MCV MCH MCHC RDW PT 21.5 H APTT 41.4 H BUN Creatinine Est GFR ( Amer) Est GFR (Non-Af Amer) Total Bilirubin Direct Bilirubin Alkaline Phosphatase NT-Pro-B Natriuret Pep - Diagnostic Test Radiology reviewed: Reports reviewed Discharge - Discharge Clinical Impression: Acute cholecystitis Dementia Qualifiers: Dementia type: unspecified type Dementia behavioral disturbance: without behavioral disturbance Qualified Code(s): F03.90 - Unspecified dementia without behavioral disturbance Nausea and vomiting Qualifiers: Vomiting type: unspecified Vomiting Intractability: non-intractable Qualified Code(s): R11.2 - Nausea with vomiting, unspecified Abdominal pain Qualifiers: Abdominal location: generalized Qualified Code(s): R10.84 - Generalized abdominal pain Condition: Fair Referrals: CODY MEHTA MD [Primary Care Provider] - Follow up as needed
--- NOTE | 2018-04-22 20:44 | RADIOLOGY REPORT (SQ) ---
EXAM DESCRIPTION: CT ABD/PELVIS NO ORAL OR IV COMPLETED DATE/TIME: 04/22/2018 8:22 pm REASON FOR STUDY: generalized abdominal pain, vomiting COMPARISON: 12/16/2017 TECHNIQUE: CT scan of the abdomen and pelvis performed without intravenous or oral contrast. Images reviewed with lung, soft tissue, and bone windows. Reconstructed coronal and sagittal MPR images revi ewed. All images stored on PACS. All CT scanners at this facility use dose modulation, iterative reconstruction, and/or weight based d osing when appropriate to reduce radiation dose to as low as reasonably achievable (ALARA). [facility]: Dose Right [facility]: CareDose [facility]: Dose Right [facility]: Teradose 4D [facility]: [employer] RADIATION DOSE: CT Rad equipment meets quality standard of care and radiation dose reduction techniq ues were employed. CTDIvol: 15.7 mGy. DLP: 870 mGy-cm.mGy. LIMITATIONS: None. FINDINGS: LOWER CHEST: Cardiomegaly. No infiltrate or effusion. NON-CONTRASTED LIVER, SPLEEN, ADRENALS: Evaluation limited by lack of IV contrast. No identified sign ificant masses. PANCREAS: No masses. No peripancreatic inflammatory changes. GALLBLADDER: There is an 18 mm gallstone. RIGHT KIDNEY AND URETER: No suspicious masses. Assessment limited by lack of IV contrast. No signif icant calcifications. No hydronephrosis or hydroureter. LEFT KIDNEY AND URETER: No suspicious masses. Assessment limited by lack of IV contrast. No signifi cant calcifications. No hydronephrosis or hydroureter. AORTA AND RETROPERITONEUM: No aneurysm. No retroperitoneal masses or adenopathy. BOWEL AND PERITONEAL CAVITY: No obvious masses or inflammatory changes. There is a small amount of a scites. Sigmoid diverticulosis with no acute inflammatory changes. APPENDIX: Not identified. PELVIS, BLADDER, AND ABDOMINAL WALL:No abnormal masses. No free fluid. Bladder normal. BONES: No significant findings. OTHER: Subcutaneous edema. IMPRESSION: 1. Cardiomegaly. 2. Cholelithiasis. 3. Diverticulosis coli. 4. Subcutaneous edema. COMMENT: Quality ID # [id number]: Final reports with documentation of one or more dose reduction techniques (e.g., Automated exposure control, adjustment of the mA and/or kV according to patient size, use of iterative reconstruction technique) TECHNICAL DOCUMENTATION: JOB ID: [id number]- All Rights Reserved Reading location - IP/workstation name: [email or web address]
[2018-04-22 21:17] LABS: APPEARANCE,URINE CLEAR; BILIRUBIN,URINE NEGATIVE (NEGATIVE); COLOR,URINE YELLOW; GLUCOSE, URINE NEGATIVE (NEGATIVE); KETONES,URINE NEGATIVE (NEGATIVE); LEUKOCYTE ESTERASE,URINE NEGATIVE (NEGATIVE); NITRITE,URINE NEGATIVE (NEGATIVE); PROTEIN,URINE NEGATIVE (NEGATIVE); URINE SPECIFIC GRAVITY 1.009; UROBILINOGEN,URINE NEGATIVE mg/dL (<2.0)
[2018-04-22] MEDS ORDERED: ONDANSETRON 4 MG TAB.RAPDIS PO ONE (22:30)
--- NOTE | 2018-04-22 23:40 | RADIOLOGY REPORT (SQ) ---
EXAM DESCRIPTION: CLINICAL HISTORY: 73 years Female vomiting, upper abdominal pain COMPLETED DATE/TME: 04/22/2018 22:32 COMPARISON: None. TECHNIQUE: Transabdominal grayscale imaging performed to evaluate the abdomen. FINDINGS: Visualized thickness of the aorta and pancreas appear unremarkable. Pancreas tail and the distal aorta are not well-seen scattered bowel gas. No acute abdomen amount of the liver. Liver measures 17 cm. Patent portal vein. Right kidney is atrophic measuring 7.4 x 4.1 cm. No hydronephrosis or mass. Cholelithiasis with a small amount of pericholecystic fluid. Gallbladder wall is prominent. Common duct measures 3 mm. Small amount of fluid is seen along the margin of the liver. IMPRESSION: Cholelithiasis and findings that may reflect acute cholecystitis Small amount of perihepatic fluid Atrophic appearing right kidney
[2018-04-23 01:01] LABS: INTERNATIONAL RATION (INR) 1.77; PROTHROMBIN TIME 21.5 SEC (11.4-15.4)
[2018-04-23 01:02] LABS: PARTIAL THROMBOPLASTIN TIME 41.4 SEC (23.5-35.8)
[2018-04-23] MEDS ORDERED: RINGERS SOLUTION,LACTATED 1,000 ML IV ONE (02:56)
[2018-04-23] MEDS ORDERED: ONDANSETRON HCL INJ/PF 4 MG/2 ML SDV IV ONE (02:56)
[2018-04-23] MEDS ORDERED: PIPERACILLIN/TAZOBACTAM 3.375 GM VIAL IV ONE (02:57)
[2018-04-23] MEDS: MORPHINE SULFATE 10 MG/ML INJ IV PRN (03:10)
--- NOTE | 2018-04-23 06:42 | PDOC H&P ---
History of Present Illness Admission Date/PCP: 04/23/18 04:34 CODY MEHTA MD Patient complains of: Failure to eat History of Present Illness: NAYELI MCKEON is a 73 year old female Who presents the emergency department with her family with a reported history of nausea vomiting diarrhea. Patient was seen by gastroenterology, Dr. Nielsen, had upper and lower endoscopy recently. We do not have the records of that. Apparently patient was told she had a gastric infection and was started on p.o. antibiotics. The patient continued to do poorly, with failure to thrive was brought to the emergency department. She is worked up extensively over a 6 hour period and was eventually found to have gallstones. The patient was evaluated eventually by Dr. Aggarwal who called Dr. Cote at approximately midnight and informed Dr. Cote of the patient had acute cholecystitis and needed admission. The patient was provisionally admitted to the surgical service. The patient was assessed at approximately 06 100 this morning, found to be only responsive due to receiving pain medication, or fatigue due to lack of sleep. There was no family at bedside. Arrangements were made to complete the admission, and obtain medicine consultation. Past Medical History Cardiac Medical History: Reports: Atrial Fibrillation, Congestive Heart Failure , Coronary Artery Disease, Myocardial Infarction, Hyperlipidema, Hypertension Pulmonary Medical History: Reports: Sleep Apnea Neurological Medical History: Reports: Seizures GI Medical History: Reports: Gastroesophageal Reflux Disease Psychiatric Medical History: Reports: Dementia, Depression Past Surgical History Past Surgical History: Reports: Cardiac Catheterization - defib inserted, Hysterectomy, Other - Cardiac pacemaker-defibrillator Social History Lives with: Family Smoking Status: Former Smoker Frequency of Alcohol Use: None Hx Recreational Drug Use: No Hx Prescription Drug Abuse: No Family History Family History: Reviewed & Not Pertinent, Hypertension Parental Family History Reviewed: No Children Family History Reviewed: No Sibling(s) Family History Reviewed.: No Medication/Allergy Home Medications: Aspirin [Ecotrin 81 mg EC Tablet] 81 mg PO DAILY 04/09/18 Carvedilol [Coreg 6.25 mg Tablet] 6.25 mg PO Q12 04/09/18 Cholecalciferol (Vitamin D3) [Vitamin D3 1000 Unit Tablet] 1,000 unit PO DAILY 04/09/18 Fluticasone/Vilanterol [Breo Ellipta 100-25 Mcg INH] 1 puff IH DAILY 04/09/18 Levetiracetam [Keppra 500 mg Tablet] 500 mg PO Q12 04/09/18 Lisinopril [Prinivil 5 mg Tablet] 5 mg PO DAILY 04/09/18 Melatonin [Melatonin 5 mg Tablet] 5 mg PO QHS 04/09/18 Metolazone [Zaroxolyn 2.5 mg Tablet] 2.5 mg PO DAILY 04/09/18 Rosuvastatin Calcium [Crestor 10 mg Tablet] 10 mg PO DAILY 04/09/18 Torsemide [Demadex 20 mg Tablet] 20 mg PO DAILY 04/09/18 Apixaban [Eliquis 2.5 mg Tablet] 2.5 mg PO BID 30 Days #60 tablet 04/15/18 Allergies/Adverse Reactions: No Known Allergies Allergy (Verified 04/22/18 14:47) Review of Systems ROS unobtainable: Due to mental status Physical Exam Vital Signs: Temp Pulse Resp BP Pulse Ox 97.5 F 70 12 124/69 100 04/23/18 05:35 04/22/18 21:36 04/23/18 05:35 04/23/18 05:35 04/23/18 05:35 General appearance: PRESENT: other - Patient sleepy, arouses, is noncommunicative Head exam: PRESENT: normocephalic Eye exam: PRESENT: EOMI - Disconjugate gaze Ear exam: PRESENT: normal external ear exam Teeth exam: PRESENT: poor dentation Neck exam: PRESENT: other - No bruits Respiratory exam: PRESENT: rhonchi Cardiovascular exam: PRESENT: RRR Pulses: PRESENT: normal carotid pulses, normal radial pulses GI/Abdominal exam: PRESENT: other - No significant distention; minimal tenderness no peritoneal signs no rigidity no gross deformity no organomegaly. Rectal exam: PRESENT: deferred Extremities exam: PRESENT: +1 edema Neurological exam: PRESENT: other - Patient is asleep, arouses with stimulation and groans. She tracks with her eyes. She is not consistently following commands. Results Impressions: Chest X-Ray 04/22/18 16:26 IMPRESSION: Cardiomegaly without CHF. Possible left lower lobe pneumonia. Small left pleural effusion. Abdomen/Pelvis CT 04/22/18 20:12 IMPRESSION: 1. Cardiomegaly. 2. Cholelithiasis. 3. Diverticulosis coli. 4. Subcutaneous edema. Abdomen Ultrasound 04/22/18 22:32 IMPRESSION: Cholelithiasis and findings that may reflect acute cholecystitis Small amount of perihepatic fluid Atrophic appearing right kidney Assessment & Plan - Diagnosis (1) Abdominal pain Qualifiers: Abdominal location: generalized Qualified Code(s): R10.84 - Generalized abdominal pain Is this a current diagnosis for this admission?: Yes Plan: Impression: Abdominal pain, nausea, diarrhea, failure to thrive; etiology of patient's current condition unclear; patient cannot provide history due to dementia, and effect of narcotics; no family available to guide further history Recommendations: 1. Admit, n.p.o., IV fluids 2. Hold all narcotics 3. Consult internal medicine 4. No plans for surgical intervention such as cholecystectomy at this time; suspect cholelithiasis a chronic problem; further assessment, and discussion with patient and family required before definitive plan provided (2) Dementia Qualifiers: Dementia type: unspecified type Dementia behavioral disturbance: without behavioral disturbance Qualified Code(s): F03.90 - Unspecified dementia without behavioral disturbance Is this a current diagnosis for this admission?: Yes (3) Acute on chronic stage IV CKD Is this a current diagnosis for this admission?: Yes (4) Congestive heart failure Qualifiers: Is this a current diagnosis for this admission?: Yes (5) Coronary artery disease Qualifiers: Is this a current diagnosis for this admission?: Yes (6) Hypertension Qualifiers: Is this a current diagnosis for this admission?: Yes - Time Time Spent: 30 to 50 Minutes Critical Time spent with patient: Less than 15 minutes Medications reviewed and adjusted accordingly: Yes Anticipated discharge: Home - Inpatient Certification Based on my medical assessment, after consideration of the patient's comorbidities, presenting symptoms, or acuity I expect that the services needed warrant INPATIENT care.: Yes I certify that my determination is in accordance with my understanding of Medicare's requirements for reasonable and necessary INPATIENT services [42 CFR 412.3e].: Yes Medical Necessity: Need For IV Fluids
--- NOTE | 2018-04-23 17:22 | RADIOLOGY REPORT (SQ) ---
EXAM DESCRIPTION: NM HIDA SCAN COMPLETED DATE/TIME: 04/23/2018 5:12 pm REASON FOR STUDY: GALLSTONES, UPPER ABD PAIN, VOMITTING COMPARISON: Abdominal sound dated 04/22/2018 RADIONUCLIDE AND DOSE: DOSAGE RADIONUCLIDE: 5.26 millicuries Tc99m Mebrofenin. DOSAGE MORPHINE: Not required. The route of agent administration: Intravenous TECHNIQUE: Serial imaging right upper quadrant up to 60 minutes following injection of radionuclide. Patient imaged AP and Right Lateral. LIMITATIONS: None. FINDINGS: LIVER: Normal visualization without areas of photopenia. INTRA-HEPATIC BILE DUCTS: Temporal visualization normal. No dilatation. COMMON BILE DUCT: Normal without dilatation or delayed visualization. GALLBLADDER: Normal visualization. OTHER: Small bowel activity was not identified. IMPRESSION: No evidence for CYSTIC OR COMMON DUCT OBSTRUCTION. TECHNICAL DOCUMENTATION: JOB ID: [id number] [employer]- All Rights Reserved Reading location - IP/workstation name: [email or web address]
[2018-04-23] MEDS ORDERED: MELATONIN 5 MG TABLET PO PRN (18:19)
--- NOTE | 2018-04-23 18:19 | PDOC CONSULTATION ---
History of Present Illness Admission Date/PCP: 04/23/18 04:34 CODY MEHTA MD History of Present Illness: NAYELI MCKEON is a 73 year old female past medical history of CHF status post defibrillator placement, coronary artery disease, myocardial infarction 4, seizure, A. fib, CKD who presented the emergency department with her family with a cleaning off nausea, vomiting, diarrhea, abdominal pain. My conversation with the patient she is alert and oriented very pleasant and cooperating with the physical examination. Patient says that she is feeling well but she is having some abdominal pain. Patient is denying any fever, chills, shortness of breath, diarrhea, constipation, chest pain or any urinary symptoms. Patient has been admitted under surgery for acute cholecystitis and hospitalist was consulted for medical management. Past Medical History Cardiac Medical History: Reports: Atrial Fibrillation, Congestive Heart Failure , Coronary Artery Disease, Myocardial Infarction, Hyperlipidema, Hypertension Pulmonary Medical History: Reports: Sleep Apnea Neurological Medical History: Reports: Seizures GI Medical History: Reports: Gastroesophageal Reflux Disease Psychiatric Medical History: Reports: Dementia, Depression Past Surgical History Past Surgical History: Reports: Cardiac Catheterization - defib inserted, Hysterectomy, Other - Cardiac pacemaker-defibrillator Social History Lives with: Family Smoking Status: Unknown if Ever Smoked Frequency of Alcohol Use: None Hx Recreational Drug Use: No Drugs: None Hx Prescription Drug Abuse: No Family History Family History: Reviewed & Not Pertinent, Hypertension Parental Family History Reviewed: Yes Children Family History Reviewed: Yes Sibling(s) Family History Reviewed.: Yes Medication/Allergy Home Medications: Apixaban [Eliquis 2.5 mg Tablet] 2.5 mg PO Q12 04/23/18 Aspirin [Ecotrin 81 mg EC Tablet] 81 mg PO DAILY 04/23/18 Aspirin [Ecotrin 81 mg EC Tablet] 81 mg PO DAILY 04/23/18 Carvedilol [Coreg 6.25 mg Tablet] 6.25 mg PO Q12 04/23/18 Fluticasone/Vilanterol [Breo Ellipta 100-25 Mcg INH] 1 puff IH DAILY 04/23/18 Levetiracetam [Keppra 500 mg Tablet] 500 mg PO Q12 04/23/18 Lisinopril [Prinivil 5 mg Tablet] 5 mg PO DAILY 04/23/18 Melatonin [Melatonin 5 mg Tablet] 5 mg PO HSP PRN 04/23/18 Metolazone [Zaroxolyn 2.5 mg Tablet] 2.5 mg PO DAILY 04/23/18 Omeprazole 20 mg PO DAILY 04/23/18 Rosuvastatin Calcium [Crestor 10 mg Tablet] 10 mg PO QHS 04/23/18 Sacubitril/Valsartan [Entresto 24 mg-26 mg Tablet] 1 tab PO Q12 04/23/18 Torsemide [Demadex 20 mg Tablet] 20 mg PO DAILY 04/23/18 Warfarin Sodium [Coumadin 3 mg Tablet] 3 mg PO DAILY 04/23/18 Allergies/Adverse Reactions: No Known Allergies Allergy (Verified 04/22/18 14:47) Review of Systems Constitutional: PRESENT: as per HPI Eyes: PRESENT: visual disturbances Ears: PRESENT: hearing changes Cardiovascular: PRESENT: as per HPI Respiratory: PRESENT: as per HPI Gastrointestinal: PRESENT: as per HPI Genitourinary: PRESENT: as per HPI Musculoskeletal: PRESENT: as per HPI. ABSENT: joint swelling Integumentary: ABSENT: rash, wounds Physical Exam Vital Signs: Temp Pulse Resp BP Pulse Ox 96.8 F L 65 24 H 94/52 L 97 04/23/18 12:39 04/23/18 12:39 04/23/18 12:39 04/23/18 12:39 04/23/18 10:01 Intake & Output 04/22/18 04/23/18 04/24/18 06:59 06:59 06:59 Intake Total 0 Output Total 0 Balance 0 General appearance: PRESENT: no acute distress, obese, well-developed, well- nourished Head exam: PRESENT: atraumatic, normocephalic Eye exam: PRESENT: conjunctiva pink, EOMI, PERRLA. ABSENT: scleral icterus Ear exam: PRESENT: normal external ear exam Mouth exam: PRESENT: moist, tongue midline Neck exam: ABSENT: carotid bruit, JVD, lymphadenopathy, thyromegaly Respiratory exam: PRESENT: clear to auscultation meghna. ABSENT: rales, rhonchi, wheezes Cardiovascular exam: PRESENT: RRR. ABSENT: diastolic murmur, rubs, systolic murmur Pulses: PRESENT: normal dorsalis pedis pul Vascular exam: PRESENT: normal capillary refill GI/Abdominal exam: PRESENT: normal bowel sounds, soft, tenderness - Mild right upper quadrant tenderness on deep palpation.. ABSENT: distended, guarding, mass , organolmegaly, rebound Rectal exam: PRESENT: deferred Extremities exam: PRESENT: full ROM. ABSENT: calf tenderness, clubbing, pedal edema Neurological exam: PRESENT: alert, awake, oriented to person, oriented to place , oriented to time, oriented to situation, CN II-XII grossly intact. ABSENT: motor sensory deficit Psychiatric exam: PRESENT: appropriate affect, normal mood. ABSENT: homicidal ideation, suicidal ideation Skin exam: PRESENT: dry, intact, warm. ABSENT: cyanosis, rash Results Impressions: Chest X-Ray 04/22/18 16:26 IMPRESSION: Cardiomegaly without CHF. Possible left lower lobe pneumonia. Small left pleural effusion. Abdomen/Pelvis CT 04/22/18 20:12 IMPRESSION: 1. Cardiomegaly. 2. Cholelithiasis. 3. Diverticulosis coli. 4. Subcutaneous edema. Abdomen Ultrasound 04/22/18 22:32 IMPRESSION: Cholelithiasis and findings that may reflect acute cholecystitis Small amount of perihepatic fluid Atrophic appearing right kidney Hepatobiliary Scan Nuclear Medicine 04/23/18 08:49 IMPRESSION: No evidence for CYSTIC OR COMMON DUCT OBSTRUCTION. Assessment & Plan - Diagnosis (1) Chronic a-fib Is this a current diagnosis for this admission?: Yes Plan: Rate controlled restart carvedilol. Patient was recently switched from warfarin to liquids. Hold anticoagulation for the. Of surgery. Restart postsurgery (2) Congestive heart failure Qualifiers: Is this a current diagnosis for this admission?: Yes Plan: Continue carvedilol, lisinopril, Entresto, Hold other anti-hypertensive and restart guided by vitals. Monitor volume status. (3) Coronary artery disease Qualifiers: Is this a current diagnosis for this admission?: Yes Plan: Continue aspirin, carvedilol, lisinopril, statins. (4) Hypertension Qualifiers: Is this a current diagnosis for this admission?: Yes Plan: Monitor hemodynamics. Continue lisinopril, torsemide, carvedilol. (5) Seizure Is this a current diagnosis for this admission?: Yes Plan: Restart Keppra. Seizure precautions. (6) Acute cholecystitis Is this a current diagnosis for this admission?: Yes Plan: Refer to surgical note. (7) CKD (chronic kidney disease) Is this a current diagnosis for this admission?: Yes Plan: Not currently on dialysis. Monitor electrolytes and replace as needed. Patient has established outpatient nephrology care.
[2018-04-23] MEDS ORDERED: ATORVASTATIN CALCIUM 20 MG TABLET PO SCH (22:00)
[2018-04-23] MEDS: LEVETIRACETAM 500 MG TABLET PO SCH (22:46)
[2018-04-23] MEDS: CARVEDILOL 6.25 MG TABLET PO SCH (23:52)
[2018-04-23] MEDS: SACUBITRIL/VALSARTAN 24 MG/26 MG TABLET PO SCH (23:52)
[2018-04-24] MEDS: MORPHINE SULFATE 10 MG/ML INJ IV PRN (04:20)
[2018-04-24 07:24] LABS: ABSOLUTE LYMPHOCYTES (AUTO) 1.3 10^3/uL (0.5-4.7); ABSOLUTE MONOCYTES (AUTO) 0.5 10^3/uL (0.1-1.4); BASOPHILS % (AUTO) 0.5 % (0-2); EOSINOPHILS % (AUTO) 0.3 % (0-6); HEMATOCRIT 30.1 % (36.0-47.0); HEMOGLOBIN 9.8 g/dL (12.0-15.5); LYMPHOCYTES % (AUTO) 27.2 % (13-45); MEAN CORPUSCULAR HEMOGLOBIN 24.8 pg (27.0-33.4); MEAN CORPUSCULAR HGB CONC 32.5 g/dL (32.0-36.0); MEAN CORPUSCULAR VOLUME 76 fl (80-97); MONOCYTES % (AUTO) 10.5 % (3-13); PLATELET COUNT 161 10^3/uL (150-450); RED BLOOD COUNT 3.94 10^6/uL (3.72-5.28); RED CELL DISTRIBUTION WIDTH 23.1 % (11.5-14.0); SEGMENTED NEUTROPHILS % (AUTO) 61.5 % (42-78); TOTAL CELLS COUNTED % (AUTO) 100 %; WHITE BLOOD COUNT 4.9 10^3/uL (4.0-10.5)
[2018-04-24 07:38] LABS: ALANINE AMINOTRANSFERASE 34 U/L (9-52); ALBUMIN 3.3 g/dL (3.5-5.0); ALKALINE PHOSPHATASE 142 U/L (38-126); ANION GAP 16 (5-19); ASPARTATE AMINO TRANSFERASE 30 U/L (14-36); BILIRUBIN,DIRECT 1.8 mg/dL (0.0-0.4); BILIRUBIN,TOTAL 2.9 mg/dL (0.2-1.3); BLOOD UREA NITROGEN 89 mg/dL (7-20); CALCIUM 9.4 mg/dL (8.4-10.2); CARBON DIOXIDE 22 mmol/L (22-30); CHLORIDE 101 mmol/L (98-107); GLUCOSE 67 mg/dL (75-110); POTASSIUM 4.6 mmol/L (3.6-5.0); SODIUM 138.8 mmol/L (137-145); TOTAL PROTEIN 6.8 g/dL (6.3-8.2)
[2018-04-24] MEDS: LEVETIRACETAM 500 MG TABLET PO SCH (09:39)
[2018-04-24] MEDS: SACUBITRIL/VALSARTAN 24 MG/26 MG TABLET PO SCH (09:42)
[2018-04-24] MEDS: CARVEDILOL 6.25 MG TABLET PO SCH (09:42)
[2018-04-24] MEDS ORDERED: LANSOPRAZOLE 15 MG TAB.RAP.DR PO SCH (10:00)
[2018-04-24] MEDS ORDERED: ASPIRIN 81 MG TABLET, ENT COATED PO SCH (10:00)
[2018-04-24] MEDS ORDERED: (PENDING PHARMACY ID) (Fluticasone/Vilanterol [Breo Ellipta 100-25 Mcg Inh] 1 PUFF) IH SCH (10:00)
[2018-04-24] MEDS ORDERED: METOLAZONE 2.5 MG TABLET PO SCH (10:00)
--- NOTE | 2018-04-24 15:43 | PDOC PROGRESS REPORT ---
Subjective Progress Note for:: 04/24/18 Subjective:: No acute events overnight. Patient stated that she has a little bit of abdominal pain that she does not specify where when asked where she just points to her stomach,otherwise she is denying any fever, chest pain, shortness of breath, nausea, diarrhea, or any urinary symptoms. He is p.o. tolerant and cooperative with physical examination. Reason For Visit: ABDOMINAL PAIN Physical Exam Vital Signs: Temp Pulse Resp BP Pulse Ox 98.1 F 75 18 98/57 L 99 04/24/18 12:00 04/24/18 12:00 04/24/18 12:00 04/24/18 12:00 04/24/18 12:00 Intake & Output 04/23/18 04/24/18 04/25/18 06:59 06:59 06:59 Intake Total 1500 240 Output Total 0 Balance 1500 240 Weight 79.5 kg General appearance: PRESENT: no acute distress, obese, well-developed, well- nourished Head exam: PRESENT: atraumatic, normocephalic Eye exam: PRESENT: conjunctiva pink, EOMI, PERRLA. ABSENT: scleral icterus Ear exam: PRESENT: normal external ear exam Mouth exam: PRESENT: moist, tongue midline Neck exam: ABSENT: carotid bruit, JVD, lymphadenopathy, thyromegaly Respiratory exam: PRESENT: clear to auscultation meghna. ABSENT: rales, rhonchi, wheezes Cardiovascular exam: PRESENT: RRR. ABSENT: diastolic murmur, rubs, systolic murmur Pulses: PRESENT: normal dorsalis pedis pul Vascular exam: PRESENT: normal capillary refill GI/Abdominal exam: PRESENT: normal bowel sounds, soft. ABSENT: distended, guarding, mass, organolmegaly, rebound, tenderness Rectal exam: PRESENT: deferred Extremities exam: PRESENT: full ROM. ABSENT: calf tenderness, clubbing, pedal edema Neurological exam: PRESENT: alert, awake, oriented to person, oriented to place , oriented to time, oriented to situation, CN II-XII grossly intact. ABSENT: motor sensory deficit Psychiatric exam: PRESENT: appropriate affect, normal mood. ABSENT: homicidal ideation, suicidal ideation Skin exam: PRESENT: dry, intact, warm. ABSENT: cyanosis, rash Results Laboratory Results: 04/24/18 05:38 04/24/18 05:38 04/23/18 04/24/18 04/24/18 19:20 05:38 05:38 WBC 4.9 RBC 3.94 Hgb 9.8 L Hct 30.1 L MCV 76 L MCH 24.8 L MCHC 32.5 RDW 23.1 H Plt Count 161 Seg Neutrophils % 61.5 Lymphocytes % 27.2 Monocytes % 10.5 Eosinophils % 0.3 Basophils % 0.5 Absolute Neutrophils 3.0 Absolute Lymphocytes 1.3 Absolute Monocytes 0.5 Absolute Eosinophils 0.0 Absolute Basophils 0.0 Sodium 138.8 Potassium 4.6 Chloride 101 Carbon Dioxide 22 Anion Gap 16 BUN 89 H Creatinine 2.63 H Est GFR ( Amer) 22 L Est GFR (Non-Af Amer) 18 L Glucose 67 L Calcium 9.4 Phosphorus 6.0 H Magnesium 2.2 Total Bilirubin 2.9 H AST 30 ALT 34 Alkaline Phosphatase 142 H Total Protein 6.8 Albumin 3.3 L Impressions: Chest X-Ray 04/22/18 16:26 IMPRESSION: Cardiomegaly without CHF. Possible left lower lobe pneumonia. Small left pleural effusion. Abdomen/Pelvis CT 04/22/18 20:12 IMPRESSION: 1. Cardiomegaly. 2. Cholelithiasis. 3. Diverticulosis coli. 4. Subcutaneous edema. Abdomen Ultrasound 04/22/18 22:32 IMPRESSION: Cholelithiasis and findings that may reflect acute cholecystitis Small amount of perihepatic fluid Atrophic appearing right kidney Hepatobiliary Scan Nuclear Medicine 04/23/18 08:49 IMPRESSION: No evidence for CYSTIC OR COMMON DUCT OBSTRUCTION. Assessment & Plan - Diagnosis (1) Chronic a-fib Is this a current diagnosis for this admission?: Yes Plan: Rate controlled, low-dose restart carvedilol. Patient was recently switched from warfarin to Eliquis. Restart anticoagulation if surgery is not planned. (2) Congestive heart failure Qualifiers: Is this a current diagnosis for this admission?: Yes Plan: Continue heart failure medication such as low-dose beta-adri low-dose TREY and low-dose Entresto guided by her hemodynamics. Monitor volume status. Patient has been mildly hypotensive but asymptomatic since admission even though diuretics have been held. Encourage oral fluid intake since patient does not have any IV access. Hold antihypertensive/diuretics medications such as metolazone and torsemide until patient is seen by PCP. Once normotensive and stable patient can be discharged to follow-up with her PCP to adjust her antihypertensive medications. (3) Coronary artery disease Qualifiers: Is this a current diagnosis for this admission?: Yes Plan: Continue aspirin, carvedilol, lisinopril, statins. Monitor vitals. Decreased dosage as tolerated (4) Hypertension Qualifiers: Is this a current diagnosis for this admission?: Yes Plan: Monitor hemodynamics. And has been mildly hypotensive since admission, asymptomatic. Hold antihypertensive medication until patient is seen by PCP. Continue heart failure medication guided by her blood pressure. (5) Seizure Is this a current diagnosis for this admission?: Yes Plan: Restart Keppra. Seizure precautions. (6) Acute cholecystitis Is this a current diagnosis for this admission?: Yes Plan: Refer to surgical note. (7) CKD (chronic kidney disease) Is this a current diagnosis for this admission?: Yes Plan: Not currently on dialysis. Monitor electrolytes and replace as needed. Patient has established outpatient nephrology care. (8) Hypoglycemia Is this a current diagnosis for this admission?: Yes Plan: There is frequent snacking and continue Accu-Chek. (9) Anemia in CKD (chronic kidney disease) Is this a current diagnosis for this admission?: Yes Plan: H&H stable. Patient may benefit from Procrit due to her age and underlying comorbidities. Outpatient nephrology follow-up
[2018-04-24 16:30] VITALS: BP 98/57
--- NOTE | 2018-04-30 21:41 | DISCHARGE SUMMARY E ---
Discharge Summary NAME: NAYELI MCKEON : 1945 AGE: 73Y ADMITTED: 04/23/2018 DISCHARGED: 04/24/2018 FINAL DIAGNOSES: 1. CHOLELITHIASIS. 2. MILD CONGESTIVE HEART FAILURE. 3. SEIZURE DISORDER. 4. HISTORY OF STROKE. HOSPITAL COURSE: This is a 73-year-old female with 2 days' duration of vomiting, and then went to the ED where she had an ultrasound of the gallbladder, which showed gallstones. She then underwent HIDA scan which showed no evidence of obstruction of the cystic duct or common bile duct, and therefore no acute cholecystitis. The patient was seen by Medicine and put back on her medications. She was then discharged improved with the above final diagnoses. The patient is to see her primary care physician for followup. DICTATING PHYSICIAN: REZA SÁNCHEZ M.D. [id number] PHY#: [id number] ID: [id number] JOB#: [id number] ACCT: [id number] cc:John COLINDRES M.D. >
== END 2018-04-24 17:03 | disposition home or self-care (01) | DRG 445 ==
LOC: ER 14:45 → EH 04-23 04:34 → UNDOADMIN 04-23 04:34 → EH 04-23 12:46 → 2S 04-23 18:56
PROVIDERS: ATTEND Surgery
DX: K80.20 Calculus of gallbladder without cholecystitis without obstruction (principal); I13.0 Hypertensive heart and chronic kidney disease with heart failure and stage 1 through stage 4 chronic kidney disease, or unspecified chronic kidney disease; I50.9 Heart failure, unspecified; I48.2 Chronic atrial fibrillation; N18.9 Chronic kidney disease, unspecified; D63.1 Anemia in chronic kidney disease; G40.909 Epilepsy, unspecified, not intractable, without status epilepticus; I25.10 Atherosclerotic heart disease of native coronary artery without angina pectoris; G47.30 Sleep apnea, unspecified; E78.5 Hyperlipidemia, unspecified; K21.9 Gastro-esophageal reflux disease without esophagitis; F03.90 Unspecified dementia, unspecified severity, without behavioral disturbance, psychotic disturbance, mood disturbance, and anxiety; Z79.82 Long term (current) use of aspirin; Z79.899 Other long term (current) drug therapy; Z90.710 Acquired absence of both cervix and uterus; Z86.73 Personal history of transient ischemic attack (TIA), and cerebral infarction without residual deficits; Z95.810 Presence of automatic (implantable) cardiac defibrillator; I25.2 Old myocardial infarction
CPT/HCPCS: 36415; 51701; 71045; 74176; 76705; 78226; 80053; 81001; 82553; 82962; 83690; 83735; 83880; 84100; 84484; 85025; 85610; 85730; 87040; 87086; 93005; 93010; 96365; 96375; 99285; A9537; J2270; J2405; J2543; J7120; Q9969; S0119